=== PATIENT | male | born 1970 | race Caucasian/White ===

== ENCOUNTER 2020-07-01 09:57 | Inpatient (IN) | payer MEDICARE ==
[~2020-07-01] VITALS: Ht 170 cm; Wt 91.5 kg
[~2020-07-01 09:57] MED LIST: ACETAMINOPHEN 500 MG TAB (TYLENOL) PO PRN; ALPRAZolam 0.25 MG (XANAX) TAB PO PRN; ASPI-1238 PO; ATOR80TA76 PO; BISACODYL 10 MG SUPP (DULCOLAX) PR PRN; CALCIUM CARBONATE 500 MG (TUMS) TAB.CHEW PO PRN; CELE100C84 PO; CLOP75TA69 PO; DEXT1TAB3 PO; DOCUSATE SODIUM 100 MG (COLACE) CAP PO PRN; FLEET ENEMA ADULT 1 EA BTL PR PRN; LACTULOSE SYRUP 10GM/15ML (ENULOSE) 30ML UDC PO PRN; LISI40TA PO; LOPERAMIDE 2 MG (IMODIUM) TABLET PO PRN; MELATONIN 3 MG TABLET PO PRN; METF-865 PO; OMEP40CA27 PO; ONDANSETRON 4 MG (ZOFRAN) ORAL DISSOLVE TAB PO PRN; PANT40TA2 PO; diphenhydrAMINE 25 MG TAB (BENADRYL) PO PRN
[2020-07-01 10:55] VITALS: BP 138/94
--- NOTE | 2020-07-01 11:58 | Physical Therapy Evaluation ---
PT Evaluation-General Medical Diagnosis Admission Date Medical Diagnosis: CVA Onset Date: Jun 26, 2020 Therapy Diagnosis Therapy Diagnosis: impaired mobility, strength, endurance Referral Physician: Olesya Asher DO Reason for Referral: Evaluation/Treatment Medical History Pertinent Medical History: CVA, GERD Additional Medical History right BKA Social History Current Living Status: Friend Entry Into Home: Level Entry Prior Prior Level of Function SCALE: Activities may be completed with or without assistive devices. 4-Lzbxyrearf-nmqjook completes the activity by him/herself with no assistance from a helper. 5-Set-up or Clean-up Assistance-helper sets up or cleans up; patient completes activity. [place] assists only prior to or following the activity. 4-Supervision or Touching Assistance-helper provides verbal cues and/or touching/steadying and/or contact guard assistance as patient completes activity. Assistance may be provided throughout the activity or intermittently. 3-Partial/Moderate Assistance-helper does LESS THAN HALF the effort. [place] lifts, holds or supports trunk or limbs, but provides less than half the effort. 2-Substantial/Maximal Assistance-helper does MORE THAN HALF the effort. [place] lifts or holds trunk or limbs and provides more than half the effort. 9-Kkxdvzvlk-hlgtsg does ALL the effort. Patient does none of the effort to complete the activity. Or, the assistance of 2 or more helpers is required for the patient to complete the activity. If activity was not attempted, code reason: 7-Patient Refused. 9-Not Applicable-not attempted and the patient did not perform the activity before the current illness, exacerbation or injury. 10-Not Attempted due to Environmental Limitations-(lack of equipment, weather restraints, etc.). 88-Not Attempted due to Medical Conditions or Safety Concerns. Bed Mobility: 6 Transfers (B,C,W/C): 6 Wheelchair Mobility: 6 Indoor Mobility (Ambulation): Not [place] Stairs: Not [place] Prior Devices Use: Manual wheelchair Patient used a WC for mobility, he was able to perform a transfer independently, states he was not ambulatory. PT Evaluation-Current Subjective Patient in WC pre tx, agrees to PT, has 4/10 pain in right residual limb. Will be co-treating with OT for part of tx due to poor patient mobility, strength, endurance, the need to coordinate UE and LE during activity and ADL's Pt/Family Goals Return Home Objective Patient Orientation: Person, Place, Time, Eyes Open, Situation ROM/Strength ROM Lower Extremities WFL Strength Lower Extremities R Hip flexion 5/5 L Hip flexion 3+/5 R Knee extension 5/5 L Knee extension 4+/5 R Knee flexion 5/5 L Knee flexion 5/5 Sensory Vision: Functional Hearing: Functional Sensation Right Lower Extremit: Intact (light touch sensatin intact throughout residual limb) Sensation Left Lower Extremity: Impaired (Light touch sensation intact L2-S2; diminished sensation "feels asleep" L4-S1) Transfers Roll Left to Right (QC): 4 Sit to Lying (QC): 4 Lying to Sitting/Side of Bed(Q: 4 Sit to Stand (QC): 3 Chair/Oaj-ev-Qjxuj Xfer(QC): 2 (Pt struggles to bear all weight through L LE for pivot transfer; pt unable to clear bottom over chair armrest) Toilet Transfer (QC): 2 Car Transfer (QC): 3 (Used slide board) Gait Does the Patient Walk?: No and Walking Goal NOT indicated Walk 10 feet (QC): 88 Walk 50 ft with 2 Turns(QC): 88 Walk 150 ft (QC): 88 Walking 10ft/uneven surface-QC: 88 Wheelchair Training Does the Pt Use a Wheelchair?: Yes Distance: 150'x2 Wheel 50 ft with 2 turns (QC): 4 Wheel 150 ft (QC): 4 Type of Wheelchair: Manual Pt attempted with propel self with only L LE and was able; pt also able to propel with UE assistance as well. Stairs 1 Step (curb) (QC): 88 4 Steps (QC): 88 12 Steps (QC): 88 Balance Sitting Static: Good Sitting Dynamic: Good Standing Static: Poor Standing Dynamic: Poor Picking up an Object (QC): 88 Treatment LLE ankle pumps x20 Static Standing balance in parallel bars x3 Assessment/Needs Co-treated with OT due to patient's limitations in strength, balance, transfers, and ability to coordinate UE and LE motions. Pt struggles to stand and maintain balance, therefore pt is not fit for ambulating at this time; pt was using wheelchair prior to this hospitalization. Pt needs mod assistance with transfers; pt is attempting transferring as instructed by therapists; pt is used to his own non-traditional ways of transferring from bed to chair. Rehab Potential: Fair PT Short Term Goals Short Term Goals Time Frame: Jul 08, 2020 Roll Left & Right: 6 Sit to lyin Lying to sitting on side of be: 6 Sit to stand: 4 Chair/vow-nk-ehlab transfer: 4 PT Jelly Filter Tender Goals Jelly Filter Tender Goals PT Fdc Goals Time Frame: Jul 22, 2020 Roll Left & Right (QC): 6 Sit to Lying (QC): 6 Lying-Sitting on Side/Bed(QC): 6 Sit to Stand (QC): 5 Chair/Weg-ni-Kgayb Xfer(QC): 5 Toilet Transfer (QC): 5 Car Transfer (QC): 5 Does the Patient Walk: No and Walking Goal NOT indicated Walk 10 feet (QC): 88 Walk 50ft with 2 Turns (QC): 88 Walk 150 ft (QC): 88 Walking 10ft on Uneven Surface: 88 1 Step (curb) (QC): 88 4 Steps (QC): 88 12 Steps (QC): 88 Picking up an Object (QC): 88 Does the Pt use WC or Scooter?: No Wheel 50 feet with 2 turns (QC: 6 Type: N/A Wheel 150 feet: 6 Type: N/A PT Plan Problem List Problem List: Activity Tolerance, Functional Strength, Safety, Balance, Gait, Transfer, Bed Mobility, ROM Treatment/Plan Treatment Plan: Continue Plan of Care Treatment Plan: Bed Mobility, Education, Functional Activity Chadd, Functional Strength, Group Therapy, Gait, Safety, Therapeutic Exercise, Transfers Treatment Duration: Jul 22, 2020 Frequency: At least 5 of 7 days/Wk (IRF) Estimated Hrs Per Day: 1.5 hours per day Patient and/or Family Agrees t: Yes Safety Risks/Education Patient Education: Transfer Techniques, Correct Positioning, W/C Management, Safety Issues Teaching Recipient: Patient Teaching Methods: Demonstration, Discussion Response to Teaching: Reinforcement Needed Discharge Recommendations Plan Patient will perform bed mobility and transfer training, balance and endurance training, functional strengthening, and education, to improve functional mobility and independence at home. Time/GCodes Time In: 1100 Time Out: 1200 Total Billed Treatment Time: 60 Total Billed Treatment 1 visit EVM 10' FA 50' PT performed bed mobility and transfers, standing, WC mobility, assist with balance during dressing, LE exercise, OT worked on dressing, assist with standing and transfers, UE positioning and safety during activity. PT eval from [id number], co-treat from [id number]. AMELIA COSTELLO PT Jul 01, 2020 11:58
--- NOTE | 2020-07-01 14:05 | Occupational Therapy Eval ---
OT Evaluation-General/PLF Medical Diagnosis Admission Date Jul 01, 2020 at 10:40 Medical Diagnosis: CVA Onset Date: Jun 26, 2020 Therapy Diagnosis Therapy Diagnosis: decreased ADL status, decreased functional mobility Referral Physician: Olesya Asher DO Referral Reason: Evaluation/Treatment Medical History Pertinent Medical History: CVA, GERD Current History CVA with L hemiparesis, admitted acutely 06/26/2020, transferred to ARU 07/01/2020 Social History Home: Apartment Current Living Status: Friend Entry Into Home: Ramp ADL-Prior Level of Function SCALE: Activities may be completed with or without assistive devices. 3-Mizxlmmjun-jzjhzeo completes the activity by him/herself with no assistance from a helper. 5-Set-up or Clean-up Assistance-helper sets up or cleans up; patient completes activity. [place] assists only prior to or following the activity. 4-Supervision or Touching Assistance-helper provides verbal cues and/or touching/steadying and/or contact guard assistance as patient completes activity. Assistance may be provided throughout the activity or intermittently. 3-Partial/Moderate Assistance-helper does LESS THAN HALF the effort. [place] lifts, holds or supports trunk or limbs, but provides less than half the effort. 2-Substantial/Maximal Assistance-helper does MORE THAN HALF the effort. [place] lifts or holds trunk or limbs and provides more than half the effort. 6-Oyrxevnhk-trglmt does ALL the effort. Patient does none of the effort to complete the activity. Or, the assistance of 2 or more helpers is required for the patient to complete the activity. If activity was not attempted, code reason: 7-Patient Refused. 9-Not Applicable-not attempted and the patient did not perform the activity before the current illness, exacerbation or injury. 10-Not Attempted due to Environmental Limitations-(lack of equipment, weather restraints, etc.). 88-Not Attempted due to Medical Conditions or Safety Concerns. ADL PLOF Comments Pt reports being independent with all ADLs and functional mobility at [facility] using w/c. He has a tub/shower with a shower chair, during transfer from w/c to ND, pt would use LLE residual rim to transfer from w/c to bath tub ledge, then onto the ND. Pt also uses manual w/c to go to convenient store ~1/4 mile away from his house, then back. Self Care: Independent Functional Cognition: Independent DME/Equipment: Bath Chair, Tub/Shower DME/Equipment Comments w/c OT Current Status Subjective Pt agreeable to OT evaluation and tx. He does not verbalize any pain. Mental Status/Objective Patient Orientation: Person, Place, Time, Situation Current Glasses/Contacts: No Hearing Aids: No Dentures/Partials: No Hand Dominance: Right Upper Extremity ROM WFL BUEs Upper Extremity Coordination decreased RUE thumb opposition to pinky, WFL LUE thumb opposition to each finger. Pt reports having a harder time with releasing objects from L hand and he feels like his left hand "wears out" Upper Extremity Sensation Pt reports tingling/numbness BUE along the ulnar distribution Upper Extremity Strength grossly 3+/5 MMT ADL-Treatment Eating (QC): 5 (Per pt report, he has assistance cutting food then he is able to use utensils to get food to mouth) Oral Hygiene (QC): 7 Shower/Bathe Self (QC): 7 (pt completed task this AM prior to arrival at [facility], agreeable to complete with OT tomorrow.) Upper Body Dressing (QC): 5 (set up at w/c level) Lower Body Dressing (QC): 1 (Pt able to thread BLEs into underwear and pants. X2 assist required in stance and assistance with pant hike.) On/Off Footwear (QC): 5 (set up and increased time with task) Toileting Hygiene (QC): 5 (pt reports being able to use urinal with increased time for managing clothing. Assist for clean up) Other Treatments [id number] OT tx: OT educated pt on purpose and benefits of OT, he verbalized understanding, then provided information about PLOF and home set up. Pt transferred from recliner to w/c, placing w/c directly in front of him and using LLE residual limb in seat of chair to assist him with his balance. Min A with transfer but 2 persons present for safety. Pt then self-propelled w/c down the hallway to increase BUE strength and endurance. Pt able to use UE/LEs in order to maneuver w/c, pt returned to his room. [id number] OT/PT cotreat: OT/PT cotreat due to the skill of 2 clinicians required which a rehab spec could not perform in order to coordinate UE/LE with tasks, and secondary to decreased functional mobility, poor standing balance, to increase safety with transfer, cues for sequencing and safety. PT performed bed mobility and transfers, standing, WC mobility, assist with balance during dressing, LE exercise, OT worked on dressing, assist with standing and transfers, UE positioning and safety during activity. Pt completed dressing, with 2 person assistance required during task for safety and balance. To comp lete dressing, pt placed LLE residual limb into seat of w/c while standing to assist himself with balance, pt had difficulty with pushing through arms and straightening RLE, relying on his LLE in chair and resting his buttocks on arm rest during task. OT assisted pt with pant hike. Pt completed functional transfers between various surfaces, then he completed x3 standing trials at p arallel bars to increase standing balance and UE strength and endurance. Pt required assistance stabilizing LUE with standing and blocking L elbow into extension. Pt self-propelled w/c back to his room requesting to stay up for lunch. Post cotreat, pt seated in w/c, call light in reach and all needs met. Education OT Patient Education: Correct positioning, Energy conservation, Modified ADL techniques, Progress toward Goal/Update tx plan, Purpose of tx/functional activities, Safety issues, Transfer techniques, W/C management Teaching Recipient: Patient Teaching Methods: Discussion Response to Teaching: Verbalize Understanding, Reinforcement Needed OT Short Term Goals Short Term Goals Time Frame: Jul 11, 2020 Shower/bathe self: 3 Lower body dressin OT Western Philosophy Professor Goals Western Philosophy Professor Goals Time Frame: Jul 25, 2020 Eating (QC): 6 Oral Hygiene (QC): 6 Toileting Hygiene (QC): 6 Shower/Bathe Self (QC): 6 Upper Body Dressing (QC): 6 Lower Body Dressing (QC): 6 On/Off Footwear (QC): 6 Additional Goals: 1-Demonstrate ADL Tasks, 2-Verbalize Understanding, 3- ImproveStrength/Chadd 1=Demonstrate adherence to instructed precautions during ADL tasks. 2=Patient will verbalize/demonstrate understanding of assistive devices/modifications for ADL. 3=Patient will improve strength/tolerance for activity to enable patient to perform ADL's. OT Education/Plan Problem List/Assessment Assessment: Decreased Activ Tolerance, Decreased UE Strength, Impaired Bed Mobility, Impaired Funct Balance, Impaired I ADL's, Impaired Self-Care Skills Discharge Recommendations Plan/Recommendations: Continue POC Treatment Plan/Plan of Care Patient would benefit from OT for education, treatment and training to promote independence in ADL's, mobility, safety and/or upper extremity function for ADL's. Plan of Care: ADL Retraining, Functional Mobility, Group Exercise/Act as Ind, UE Funct Exercise/Act, UE Neuromus Re-Ed/Coord, W/C Management Training Treatment Duration: Jul 25, 2020 Frequency: At least 5 of 7 days/Wk (IRF) Estimated Hrs Per Day: 1.5 hours per day Rehab Potential: Fair Time/GCodes Start Time: 10:40 Stop Time: 12:00 Total Time Billed (hr/min): 70 Billed Treatment Time [id number] OT eval/tx [id number] OT/PT cotreat 1, EVM (10'), ADL (10'), FA 3 (50') JUAN C LOW OT Jul 01, 2020 14:05
--- NOTE | 2020-07-01 14:23 | Occupational Ther Daily Note ---
OT Current Status-Daily Note Subjective Pt seated in w/c agreeable to OT tx. Pt states he ate lunch and it was good. Mental Status/Objective Patient Orientation: Person, Place, Time, Situation ADL-Treatment Therapy Code Descriptions/Definitions Functional [place] Measure: 0=Not Assessed/NA 4=Minimal Assistance 1=Total Assistance 5=Supervision or Setup 2=Maximal Assistance 6=Modified [place] 3=Moderate Assistance 7=Complete IndependenceSCALE: Activities may be completed with or without assistive devices. 9-Czqskygbup-nryxkna completes the activity by him/herself with no assistance from a helper. 5-Set-up or Clean-up Assistance-helper sets up or cleans up; patient completes activity. [place] assists only prior to or following the activity. 4-Supervision or Touching Assistance-helper provides verbal cues and/or touching/steadying and/or contact guard assistance as patient completes activity. Assistance may be provided throughout the activity or intermittently. 3-Partial/Moderate Assistance-helper does LESS THAN HALF the effort. [place] lifts, holds or supports trunk or limbs, but provides less than half the effort. 2-Substantial/Maximal Assistance-helper does MORE THAN HALF the effort. [place] lifts or holds trunk or limbs and provides more than half the effort. 2-Nkqblzwhw-nrdmiu does ALL the effort. Patient does none of the effort to complete the activity. Or, the assistance of 2 or more helpers is required for the patient to complete the activity. If activity was not attempted, code reason: 7-Patient Refused. 9-Not Applicable-not attempted and the patient did not perform the activity before the current illness, exacerbation or injury. 10-Not Attempted due to Environmental Limitations-(lack of equipment, weather restraints, etc.). 88-Not Attempted due to Medical Conditions or Safety Concerns. Oral Hygiene (QC): 6 (Pt completed seated in w/c at sink.) Toileting Hygiene (QC): 5 (assist emptying urinal. Pt reports increased time for clothing management and placement of urinal.) Other Treatment Pt seated in w/c, self-propelled w/c into the bathroom where he completed oral care and brushing his hair independently at sink. Pt reports he self-propelled w/c into the restroom to use urinal, he is able to manage clothes and place urinal himself with increased time. Assistance with emptying urinal. Pt requested to stay upright in w/c post tx, pt able to maneuver w/c using UEs/RLE around room to position self. Post OT tx, pt seated in w/c, call light in reach and all needs met. Education OT Patient Education: Correct positioning, Energy conservation, Modified ADL techniques, Progress toward Goal/Update tx plan, Purpose of tx/functional activities, Safety issues, Transfer techniques, W/C management Teaching Recipient: Patient Teaching Methods: Discussion Response to Teaching: Verbalize Understanding OT Short Term Goals Short Term Goals Time Frame: Jul 11, 2020 Shower/bathe self: 3 Lower body dressin OT Prison Goals Rural Service Engineer Goals Time Frame: Jul 25, 2020 Eating (QC): 6 Oral Hygiene (QC): 6 Toileting Hygiene (QC): 6 Shower/Bathe Self (QC): 6 Upper Body Dressing (QC): 6 Lower Body Dressing (QC): 6 On/Off Footwear (QC): 6 Additional Goals: 1-Demonstrate ADL Tasks, 2-Verbalize Understanding, 3- ImproveStrength/Chadd 1=Demonstrate adherence to instructed precautions during ADL tasks. 2=Patient will verbalize/demonstrate understanding of assistive devices/modifications for ADL. 3=Patient will improve strength/tolerance for activity to enable patient to perform ADL's. OT Education/Plan Problem List/Assessment Assessment: Decreased Activ Tolerance, Decreased UE Strength, Impaired Funct Balance, Impaired I ADL's, Impaired Self-Care Skills Discharge Recommendations Plan/Recommendations: Continue POC Treatment Plan/Plan of Care Patient would benefit from OT for education, treatment and training to promote independence in ADL's, mobility, safety and/or upper extremity function for ADL's. Plan of Care: ADL Retraining, Functional Mobility, Group Exercise/Act as Ind, UE Funct Exercise/Act, UE Neuromus Re-Ed/Coord, W/C Management Training Treatment Duration: Jul 25, 2020 Frequency: At least 5 of 7 days/Wk (IRF) Estimated Hrs Per Day: 1.5 hours per day Rehab Potential: Fair Time/GCodes Start Time: 13:00 Stop Time: 13:20 Total Time Billed (hr/min): 20 Billed Treatment Time 1, ADL JUAN C LOW OT Jul 01, 2020 14:23
--- NOTE | 2020-07-01 15:18 | Physical Therapy Daily Note ---
PT Daily Note-Current Subjective Pt presents sitting upright in in room. Pt agrees to PT. Pt reports no pain. Appearance After PT tx patient is assisted returning to room. In his room he is left upr ight in wheelchair with access to tray, call button, and all needs met. Mental Status Patient Orientation: Person, Place, Time, Eyes Open, Situation Transfers SCALE: Activities may be completed with or without assistive devices. 4-Gnvdbmkxnn-yjprbti completes the activity by him/herself with no assistance from a helper. 5-Set-up or Clean-up Assistance-helper sets up or cleans up; patient completes activity. [place] assists only prior to or following the activity. 4-Supervision or Touching Assistance-helper provides verbal cues and/or touching/steadying and/or contact guard assistance as patient completes activity. Assistance may be provided throughout the activity or intermittently. 3-Partial/Moderate Assistance-helper does LESS THAN HALF the effort. [place] lifts, holds or supports trunk or limbs, but provides less than half the effort. 2-Substantial/Maximal Assistance-helper does MORE THAN HALF the effort. [place] lifts or holds trunk or limbs and provides more than half the effort. 0-Jeryjxatk-jjofzg does ALL the effort. Patient does none of the effort to complete the activity. Or, the assistance of 2 or more helpers is required for the patient to complete the activity. If activity was not attempted, code reason: 7-Patient Refused. 9-Not Applicable-not attempted and the patient did not perform the activity before the current illness, exacerbation or injury. 10-Not Attempted due to Environmental Limitations-(lack of equipment, weather restraints, etc.). 88-Not Attempted due to Medical Conditions or Safety Concerns. Chair/Yak-pc-Nuezs Xfer(QC): 2 Wheelchair Training Does the Pt Use a Wheelchair?: Yes Wheel 50 ft with 2 turns (QC): 4 Wheel 150 ft (QC): 4 Type of Wheelchair: Manual 200'x2 Exercises NuStep Minutes: 15 NuStep Workload: 4 Treatments LE strengthening Assessment Current Status: Fair Progress Pt requires max assist to complete stand-pivot transfer onto nustep. Transferring from Nustep to pt is in the midst of hearing instruction to transfer when he begins to transfers in his own manner involving leaning forward into wheelchair with residual limb and then twisting his body onto bottom. PT Short Term Goals Short Term Goals Time Frame: Jul 08, 2020 Roll Left & Right: 6 Sit to lyin Lying to sitting on side of be: 6 Sit to stand: 4 Chair/hyx-ij-oczpk transfer: 4 PT Recreation Professor Goals Jail Goals PT Recreation Professor Goals Time Frame: Jul 22, 2020 Roll Left & Right (QC): 6 Sit to Lying (QC): 6 Lying-Sitting on Side/Bed(QC): 6 Sit to Stand (QC): 5 Chair/Xme-db-Hexsv Xfer(QC): 5 Toilet Transfer (QC): 5 Car Transfer (QC): 5 Does the Patient Walk: No and Walking Goal NOT indicated Walk 10 feet (QC): 88 Walk 50ft with 2 Turns (QC): 88 Walk 150 ft (QC): 88 Walking 10ft on Uneven Surface: 88 1 Step (curb) (QC): 88 4 Steps (QC): 88 12 Steps (QC): 88 Picking up an Object (QC): 88 Does the Pt use WC or Scooter?: No Wheel 50 feet with 2 turns (QC: 6 Type: N/A Wheel 150 feet: 6 Type: N/A PT Plan Problem List Problem List: Activity Tolerance, Functional Strength, Safety, Balance, Gait, Transfer, Bed Mobility, ROM Treatment/Plan Treatment Plan: Continue Plan of Care Treatment Plan: Bed Mobility, Education, Functional Activity Chadd, Functional Strength, Group Therapy, Gait, Safety, Therapeutic Exercise, Transfers Treatment Duration: Jul 22, 2020 Frequency: At least 5 of 7 days/Wk (IRF) Estimated Hrs Per Day: 1.5 hours per day Patient and/or Family Agrees t: Yes Safety Risks/Education Patient Education: Transfer Techniques, Correct Positioning, W/C Management, Safety Issues Teaching Recipient: Patient Teaching Methods: Demonstration, Discussion Response to Teaching: Reinforcement Needed Time/GCodes Time In: 1330 Time Out: 1400 Total Billed Treatment Time: 30 Total Billed Treatment 1 visit EX 15' FA 15' AMELIA COSTELLO PT Jul 01, 2020 15:18
[2020-07-01] MEDS: ENOXAPARIN 40 MG/0.4 ML (LOVENOX) SYR SC SCH (17:19)
[2020-07-01] MEDS: DOCUSATE SODIUM 100 MG (COLACE) CAP PO SCH ×2 (17:37→20:43)
[2020-07-01] MEDS: polyethylene glycoL POWDER 17 GM (MIRALAX) PACK PO SCH ×2 (17:38→20:46)
[2020-07-01] MEDS: SENNA W/DOCUSATE (SENOKOT S) TABLET PO SCH ×2 (17:38→20:42)
[2020-07-01] MEDS ORDERED: BENZONATATE 100 MG (TESSALON) CAPSULE PO PRN (18:45)
[2020-07-01] MEDS ORDERED: RT-ALBUTEROL SULF 2.5 MG/3 ML PRE-MIX VIAL INH PRN (18:45)
[2020-07-01] MEDS ORDERED: ENOXAPARIN 40 MG/0.4 ML (LOVENOX) SYR SC SCH (18:45)
[2020-07-01] MEDS ORDERED: CHLOR MAL PO PRN (18:45)
[2020-07-01] MEDS ORDERED: ANTACID SUSP 30 ML UDC (MYLANTA) PO PRN (18:45)
[2020-07-01] MEDS ORDERED: [UNRECOGNIZED DRUG - OTHER] PO PRN (18:45)
[2020-07-01] MEDS ORDERED: MILK OF MAGNESIA 400 MG/5 ML 30 ML UDC PO PRN (18:45)
[2020-07-01] MEDS ORDERED: MELATONIN 3 MG TABLET PO PRN (18:45)
[2020-07-01] MEDS ORDERED: DEXTROMETHORPHAN HBR PO PRN (18:45)
[2020-07-01] MEDS ORDERED: ACETAMINOPHEN 325 MG TABLET PO PRN (18:45)
[2020-07-01] MEDS ORDERED: ONDANSETRON 4 MG/2 ML (SDV) Z0FRAN IV PRN (18:45)
--- NOTE | 2020-07-01 19:40 | Progress Note ---
HAILY ROD MED STUDENT 07/01/20 1940: Progress Note Neurological Exam Mental Status: * Alert/ Aware * A&Ox3 * Difficulty with speech articulation * Mood/ affect congruent Cranial Nerves: * CN's II-XII grossly intact * Difficulty with eye convergence Motor: * UE strength +5/5 bilaterally * Left LE strength +5/5 * Smooth, fluid movements * No spontaneous movements * Difficulty with fine motor movements bilaterally * Left side new onset * Decreased reaction time when releasing executive services administrator bilaterally * Left side new onset * Decreased speed of alternating movements Reflexes: * Right Brachioradialis +2/4 * Left Brachioradialis +1/4 * Left Patellar +2/4 Sensation: * UE/ LE sensation intact * Left LE numbness/ tingling noted Coordination: * Gait unable to assess * Difficulty with cpmnkl-lv-ulmr test * Noticeable shaking when approaching examiner's finger tip * Patient would miss examiner's finger tip and touch finger 3/5 attempts OLESYA MARIN DO 07/01/202116: Supervisory-Addendum Brief Verification & Attestation Participated in pt care: history, MDM, physical Personally performed: exam, history, MDM, supervision of care Care discussed with: Medical Student Procedures: n/a Results interpretation: Verified all documentation Verification and Attestation of Medical Student E/M Service A medical student performed and documented this service in my presence. I reviewed and verified all information documented by the medical student and made modifications to such information, when appropriate. I personally performed the physical exam and medical decision making. Olesya Marin, Jul 01, 2020,21:17 HAILY ROD MED STUDENT Jul 01, 2020 19:40 OLESYA MARIN DO Jul 01, 2020 21:17
--- NOTE | 2020-07-01 19:55 | History & Physical ---
HAILY ROD MED STUDENT 07/01/201954: History of Present Illness History of Present Illness Reason for visit/HPI CC: Left sided weakness secondary to CVA HPI: 50 yo M presents with CC of left sided weakness following CVA. Patient states he had no symptoms that evening and when he got up at 1 am to urinate. The following morning he had profound left sided muscle weakness. Patient confirmed inability to urinate at the time but denied any other symptoms including pain and dysphagia. Patient was not as concerned considering the severity did not seem as significant to him as his previous stroke in 2014. Patient continued with his morning including making a pot of coffee. Later that morning the girlfriend of his roommate called EMS due to concern. Date of Admission Jul 01, 2020 at 10:40 I consulted on this patient on 07/01/20 19:50 Attending Physician Olesya Asher DO Admitting Physician Anitha Lee DO Consult Allergies and Home Medications Allergies Coded Allergies: No Known Drug Allergies (Unverified , 06/26/20) Home Medications Aspirin 81 Mg Tablet., 81 MG PO DAILY, (Reported) Atorvastatin Calcium 80 Mg Tablet, 80 MG PO HS, (Reported) Celecoxib 100 Mg Capsule, 100 MG PO BID WITH MEALS, (Reported) Clopidogrel Bisulfate 75 Mg Tablet, 75 MG PO DAILY, (Reported) LAST FILLED 02-26-2020 #90/90 DAY SUPPLY Dextromethorphan HBr/Chlor-Mal 1 Each Tablet, 1 EACH PO Q4H PRN for COUGH, (Rep orted) Lisinopril 40 Mg Tablet, 40 MG PO DAILY, (Reported) LAST FILLED 04-18-2020 #30/30 DAY SUPPLY Metformin HCl 500 Mg Tab.er.24h, 500 MG PO BID, (Reported) Omeprazole 40 Mg Capsule.dr, 40 MG PO DAILY, (Reported) Pantoprazole Sodium 40 Mg Tablet.dr, 40 MG PO DAILY, (Reported) LAST FILLED 04-18-2020 #30/30 DAY SUPPLY Past Vvodxpl-Ihudxd-Jicctc Hx Patient Social History Living Status: With friend and friend's girlfriend Employed/Student: unemployed (Disability) Alcohol Use: Past History (Quit May 02, 2020) Alcohol Beverage of Choice: Beer (3-6 25 oz per day) Recreational Drug Use: No Smoking Status: Former Smoker Cigaretts per day: 40 Former Smoker, Quit: Apr 24, 2020 Type Used: Cigarettes Recent Hopitalizations: Yes Immunizations Up To Date Pediatric: No Seasonal Allergies Seasonal Allergies: No Surgeries Yes Amputation (Right BKA), Arteriovenous Shunt (Right leg) Respiratory No Currently Using CPAP: No Currently Using BIPAP: No Cardiovascular Yes High Cholesterol, Hypertension, Peripheral Vascular Neurological Yes Stroke Reproductive System Sexually Transmitted Disease: No HIV/AIDS: No Genitourinary No Gastrointestinal Yes Gastroesophageal Reflux Musculoskeletal Amputee (Right BKA), Arthritis Endocrine History of Endocrine Disorders: Yes Endocrine Disorders: Diabetes, Non-Insulin dep HEENT History of HEENT Disorders: No Loss of Vision: Denies Hearing Impairment: Denies Cancer No Psychosocial History of Psychiatric Problem: No Integumentary History of Skin or Integumenta: No Blood Transfusions History of Blood Disorders: No Adverse Reaction to a Blood Tr: No Family Medical History Significant Family History: Heart Disease (Father), Cancer (Mother ("bone cancer")), Diabetes (Paternal side), Stroke (Father) Other Significan Family Hx: Sister passed of breast cancer at age 48 Brother hx of [place] Family Hx: Diabetes mellitus 19 FATHER Review of Systems Constitutional: no symptoms reported EENTM: no symptoms reported Respiratory: dyspnea on exertion Cardiovascular: no symptoms reported Gastrointestinal: abdominal pain, constipation Genitourinary: no symptoms reported Musculoskeletal: joint pain (Left shoulder), muscle weakness (Left side) Skin: no symptoms reported Psychiatric/Neurological: No Symptoms Reported All Other Systems Reviewed Negative Unless Noted: Yes Physical Exam Vital Signs Vital Signs - First Documented 07/01/20 10:55 Temp 36.5 Pulse 83 Resp 18 B/P (MAP) 138/94 (109) Pulse Ox 96 O2 Delivery Room Air Capillary Refill : Height, Weight, BMI Height: '" Weight: lbs. oz. kg; 33.25 BMI Method: General Appearance: No Apparent Distress, WD/WN Eyes: Bilateral Eye Normal Inspection, Bilateral Eye PERRL, Bilateral Eye EOMI HEENT: PERRL/EOMI, Pharynx Normal Neck: Full Range of Motion, Normal Inspection, Supple Respiratory: Chest Non Tender, Lungs Clear, Normal Breath Sounds, No Accessory Muscle Use, Other (Slight SOB from exertion ) Cardiovascular: Regular Rate, Rhythm, No Edema, No Gallop, No JVD, No Murmur Gastrointestinal: No Organomegaly, No Pulsatile Mass, Non Tender, Abnormal Bowel Sounds (Hyperactive), Distended Back: Normal Inspection, No CVA Tenderness, No Vertebral Tenderness Extremity: Normal Inspection, Normal Range of Motion, Non Tender, No Calf Tenderness, No Pedal Edema Neurologic/Psychiatric: Alert, Oriented x3, No Motor/Sensory Deficits, Normal Mood/Affect, exercise scientist II-XII Norm as Tested Reflexes: 2+ Bicep (R) (Brachioradialis); 1+ Bicep (L) (Brachioradialis ); 2+ Knee (L) Skin: Normal Color, Warm/Dry Assessment/Plan Assessment and Plan ASSESSMENT: CVA Muscle weakness Right BKA Right internal carotid artery stenosis HTN Hyperlipidemia T2DM Hx of smoking Hx of excessive alcohol use PLAN: Physical therapy Speech therapy Maintain blood sugar Monitor BP OLESYA ASHER DO 07/02/20 0523: History of Present Illness History of Present Illness Time Seen by a Provider: 11:00 Allergies and Home Medications Allergies Coded Allergies: No Known Drug Allergies (Unverified , 06/26/20) Home Medications Aspirin 81 Mg Tablet.dr, 81 MG PO DAILY, (Reported) Atorvastatin Calcium 80 Mg Tablet, 80 MG PO HS, (Reported) Celecoxib 100 Mg Capsule, 100 MG PO BID WITH MEALS, (Reported) Clopidogrel Bisulfate 75 Mg Tablet, 75 MG PO DAILY, (Reported) LAST FILLED 02-26-2020 #90/90 DAY SUPPLY Dextromethorphan HBr/Chlor-Mal 1 Each Tablet, 1 EACH PO Q4H PRN for COUGH, (Reported) Lisinopril 40 Mg Tablet, 40 MG PO DAILY, (Reported) LAST FILLED 04-18-2020 #30/30 DAY SUPPLY Metformin HCl 500 Mg Tab.er.24h, 500 MG PO BID, (Reported) Omeprazole 40 Mg Capsule.dr, 40 MG PO DAILY, (Reported) Pantoprazole Sodium 40 Mg Tablet.dr, 40 MG PO DAILY, (Reported) LAST FILLED 04-18-2020 #30/30 DAY SUPPLY Patient Home Medication List Home Medication List Reviewed: Yes Past Bbhpkmr-Kwtvus-Xxofwf Hx Patient Social History Marrital Status: cohabiting Family Medical History Family Hx: Diabetes mellitus 19 FATHER Review of Systems Constitutional: see HPI Physical Exam General Appearance: No Apparent Distress, WD/WN Assessment/Plan Assessment and Plan Problems: (1) CVA (cerebral vascular accident) Admission Diagnosis Admission Status: Inpatient Order (span 2 midnights) Reason for Inpatient Admission: inpt Supervisory-Addendum Brief Verification & Attestation Participated in pt care: history, MDM, physical Personally performed: exam, history, MDM, supervision of care Care discussed with: Medical Student Procedures: n/a Results interpretation: Verified all documentation Verification and Attestation of Medical Student E/M Service A medical student performed and documented this service in my presence. I reviewed and verified all information documented by the medical student and made modifications to such information, when appropriate. I personally performed the physical exam and medical decision making. Olesya Asher, Jul 02, 2020,05:23 HAILY ROD MED STUDENT Jul 01, 2020 19:55 OLESYA ASHER DO Jul 02, 2020 05:23
[2020-07-01] MEDS: HYDROcodone/APAP 5 MG/325 MG (LORTAB) TAB PO PRN (20:43)
[2020-07-01] MEDS: inSUlin ASPART (NovoLOG) 1 UNIT/0.01 ML (CHARGE PER UNIT) SC SCH (20:46)
--- NOTE | 2020-07-01 21:16 | PM&R Post Admission Assessment ---
PM&R Date of Visit: Jul 01, 2020 Time of Visit: 10:40 History of Present Illness CC: Stroke HPI: This is a 50yoWM who presents to inpatient rehab after a new ischemic stroke. He has a history of prior stroke in addition to a right lower extremity amputation so he has residual left weakness with right lower extremity amputation in need of intensive intensive rehab. He lives with his girlfriend who has to have back surgery and pretty debilitated herself. His pain is much better now and his bowels are a bit constipated. He remains with a dinh catheter and telemetry on. Catheter has been removed and Tely DC. Patient reports BM a bit today so constipation is resolving. PLOF was driving a bit and navigating around his house with wheelchair and transfers. Past Yrxajrj-Dkstjv-Depijq Hx Past Med/Social Hx: Reviewed Nursing Past Med/Soc Hx, Reviewed and Corrections made Patient Social History Marrital Status: cohabiting Living Status: With friend and friend's girlfriend Employed/Student: unemployed (Disability) Alcohol Use: Past History Alcohol Beverage of Choice: Beer Recreational Drug Use: No Smoking Status: Former Smoker Cigaretts per day: 40 Former Smoker, Quit: Apr 24, 2020 Type Used: Cigarettes Physical Abuse Screen: No Sexual Abuse: No Recent Foreign Travel: No Recent Hopitalizations: Yes Immunizations Up To Date Pediatric: No Seasonal Allergies Seasonal Allergies: No Past Medical History Surgeries: Amputation (Right BKA), Arteriovenous Shunt (Right leg), Orthopedic Respiratory: COPD Currently Using CPAP: No Currently Using BIPAP: No Cardiac: High Cholesterol, Hypertension, Peripheral Vascular Neurological: Stroke Sexually Transmitted Disease: No HIV/AIDS: No Gastrointestinal: Gastroesophageal Reflux Musculoskeletal: Amputee, Arthritis Endocrine: Diabetes, Non-Insulin dep Loss of Vision: Denies Hearing Impairment: Denies History of Blood Disorders: No Adverse Reaction to Blood Bedolla: No Family History Diabetes mellitus 19 FATHER FHx: cancer Heart Disease (Father), Cancer (Mother ("bone cancer")), Diabetes (Paternal side), Stroke (Father) Sister passed of breast cancer at age 48 Brother hx of [place] Prior Level of Function Bed Mobility: 6 Transfers: 6 Wheelchair Mobility: 6 Indoor Mobility (Ambulation): Not Applicalbe Stairs: Not Applicalbe Prior Devices Use: Manual wheelchair Self Care: Independent Functional Cognition: Independent Current Level of Fuctioning Roll Left to Right: 4 Sit to Lyin Lying to Sitting/Side of Bed: 4 Sit to Stand: 3 Chair/Hua-kd-Rjbmj Xfer: 2 Car Transfer: 3 (Used slide board) Does the Patient Walk: No and Walking Goal NOT indicated Walk 10 feet: 88 Walk 50 ft with 2 Turns: 88 Walk 150 ft: 88 Walking 10ft on uneven surface: 88 Does the Pt Use a Wheelchair: Yes Wheelchair Distance: 150'x2 Wheel 50 ft with 2 turns: 4 Wheel 150 ft: 4 Type of Wheelchair: Manual 1 Step (curb): 88 4 Steps: 88 12 Steps: 88 Picking up an Object: 88 Eatin (Per pt report, he has assistance cutting food then he is able to use utensils to get food to mouth) Oral Hygiene: 6 (Pt completed seated in w/c at sink.) Shower/Bathe Self: 7 (pt completed task this AM prior to arrival at [facility], agreeable to complete with OT tomorrow.) Upper Body Dressin (set up at w/c level) Lower Body Dressin (Pt able to thread BLEs into underwear and pants. X2 assist required in stance and assistance with pant hike.) On/Off Footwear: 5 (set up and increased time with task) Toileting Hygiene: 5 (assist emptying urinal. Pt reports increased time for clothing management and placement of urinal.) PM&R Allergy/Meds/Data Review Allergies Coded Allergies: No Known Drug Allergies (Unverified , 06/26/20) Home Medications Scheduled Aspirin (Aspirin EC), 81 MG PO DAILY, (Reported) Atorvastatin Calcium (Atorvastatin Calcium), 80 MG PO HS, (Reported) Celecoxib (Celecoxib), 100 MG PO BID WITH MEALS, (Reported) Clopidogrel Bisulfate (Plavix), 75 MG PO DAILY, (Reported) Lisinopril (Lisinopril), 40 MG PO DAILY, (Reported) Metformin HCl (Metformin HCl ER), 500 MG PO BID, (Reported) Omeprazole (Omeprazole), 40 MG PO DAILY, (Reported) Pantoprazole Sodium (Protonix), 40 MG PO DAILY, (Reported) Scheduled PRN Dextromethorphan HBr/Chlor-Mal (Coricidin Hbp Cough & Cold Tab), 1 EACH PO Q4H PRN for COUGH, (Reported) Current Medications Current Medications Reviewed Laboratory Data Laboratory Tests 07/01/20 20:39: Glucometer 133H Review of Systems Constitutional: see HPI, malaise, weakness Gastrointestinal: constipation Musculoskeletal: back pain, joint pain, muscle pain, muscle stiffness, muscle cramps Psychiatric/Neurological: Numbness, Weakness Physical Exam Physical Exam Vital Signs Vital Signs - First Documented 07/01/20 10:55 Temp 36.5 Pulse 83 Resp 18 B/P (MAP) 138/94 (109) Pulse Ox 96 O2 Delivery Room Air Capillary Refill : Height, Weight, BMI Height: '" Weight: lbs. oz. kg; 33.25 BMI Method: General Appearance: No Apparent Distress, WD/WN, Chronically ill, Obese Eyes: Bilateral Eye Normal Inspection, Bilateral Eye PERRL, Bilateral Eye EOMI HEENT: PERRL/EOMI, Normal ENT Inspection, Pharynx Normal Neck: Full Range of Motion, Normal Inspection, Non Tender, Supple Respiratory: Chest Non Tender, Lungs Clear, Normal Breath Sounds, No Accessory Muscle Use, No Respiratory Distress, Other (Slight SOB from exertion ) Cardiovascular: Regular Rate, Rhythm, No Edema, No Gallop, No JVD, No Murmur Gastrointestinal: No Organomegaly, No Pulsatile Mass, Non Tender, Soft Back: Normal Inspection, No CVA Tenderness, No Vertebral Tenderness Extremity: Normal Inspection, Normal Range of Motion, Non Tender, No Calf Tenderness, No Pedal Edema, Other (right BKA) Neurologic/Psychiatric: Alert, Oriented x3, No Motor/Sensory Deficits, Normal Mood/Affect, international marketing executive II-XII Norm as Tested, Motor Weakness (left sided weakness 3/5) Reflexes: 2+ Bicep (R) (Brachioradialis); 1+ Bicep (L) (Brachioradialis ); 2+ Knee (L) Skin: Normal Color, Warm/Dry PM&R Medical Assessment & Plan REHAB/MEDICAL ASSESSMENT AND PLAN: REHAB IMPAIRMENT GROUP: CVA ETIOLOGIC DIAGNOSIS: CVA The comorbidities that impact the patients function and/or functional outcome by: previous right BKA, previous CVA with weakness, chronic debility, continued smoking REHAB PLAN: The patient is being admitted to our comprehensive inpatient rehabilitation facility and can tolerate the intensity of service consisting of at least: 180 minutes of therapy a day, 5 out of 7 days a week Rehab treatment will consist of: PT OT will focus on regaining independence with the use of assistive devices in order to return home to live independently. The patient/family has a good understanding of our discharge process and will benefit from an interdisciplinary inpatient rehabilitation program. The patient has potential to make improvement and is in need of at least two of the following multidisciplinary therapies including but not limited to physical, occupational, speech, and prosthetics and orthotics. Additionally the patient will need services from respiratory, nutritional services, wound care, psychology, etc. (Customize this to each patient). Given the patients complex condition and risk of further medical complications, rehabilitation services cannot be safely or effectively provided at a lower level of care such as a fdc facility. BARRIERS TO DISCHARGE: Severe acute on chronic disability ESTIMATED LOS: 7 days DISPOSITION: Home RELEVANT CHANGES SINCE PREADMISSION SCREENING: I have compared the patients medical and functional status at the time of the preadmission screening and there are: no changes PROGNOSIS: Fair REHABILITATION GOALS: 1. PT OT will focus on regaining independence with the use of assistive devices in order to return home to live independently. All the above goals were reviewed with the patient and he/she is in agreement. By signing this document, I acknowledge that I have personally performed a full physical examination on this patient within 24 hours of admission to this inpatient rehabilitation facility and have determined the patient to be able to tolerate the above course of treatment at an intensive level for a reasonable period of time. I will be completing a detailed individualized Plan of Care for this patient by day #4 of the patients stay based upon the Preadmission Screen, the Post-Admission Evaluation, and the therapy evaluations. Admission Dx/Comorbidities: (1) CVA (cerebral vascular accident) ICD Codes: I63.9 - Cerebral infarction, unspecified (2) Carotid stenosis Status: Chronic ICD Codes: I65.29 - Occlusion and stenosis of unspecified carotid artery (3) History of CVA with residual deficit Status: Chronic ICD Codes: I69.30 - Unspecified sequelae of cerebral infarction (4) Amputee of extremity Status: Chronic ICD Codes: Z89.9 - Acquired absence of limb, unspecified (5) PAD (peripheral artery disease) Status: Chronic ICD Codes: I73.9 - Peripheral vascular disease, unspecified (6) Non-insulin dependent type 2 diabetes mellitus Status: Chronic ICD Codes: E11.9 - Type 2 diabetes mellitus without complications (7) CKD (chronic kidney disease) Status: Chronic ICD Codes: N18.9 - Chronic kidney disease, unspecified (8) HLD (hyperlipidemia) Status: Chronic ICD Codes: E78.5 - Hyperlipidemia, unspecified (9) Essential (primary) hypertension Status: Chronic ICD Codes: I10 - Essential (primary) hypertension (10) Left-sided weakness ICD Codes: R53.1 - Weakness (11) Smoker within last 12 months Status: Acute ICD Codes: Z87.891 - Personal history of nicotine dependence Assessment/Plan Assessment and Plan Assess & Plan/Chief Complaint Assessment: CVA w/left sided weakness Smoker Right BKA hx Chronic disability HTN HLP CRI Plan: IRF protocol Monitor BP Monitor creatinine TREY MARIN DO Jul 01, 2020 21:16
[2020-07-02] MEDS: HYDROcodone/APAP 5 MG/325 MG (LORTAB) TAB PO PRN ×4 (00:22→20:11)
[2020-07-02] MEDS: inSUlin ASPART (NovoLOG) 1 UNIT/0.01 ML (CHARGE PER UNIT) SC SCH ×4 (05:46→20:15)
[2020-07-02 06:03] LABS: BASOPHILS % (AUTO) 0 % (0-10); EOSINOPHILS # (AUTO) 0.1 10^3/uL (0.0-0.3); EOSINOPHILS % (AUTO) 2 % (0-10); HEMATOCRIT 37 % (40-54); HEMOGLOBIN 12.9 G/DL (13.3-17.7); LYMPHOCYTES # (AUTO) 2.6 X 10^3 (1.0-4.0); LYMPHOCYTES % (AUTO) 40 % (12-44); MEAN CORPUSCULAR HEMOGLOBIN 32 PG (25-34); MEAN CORPUSCULAR HGB CONC 35 G/DL (32-36); MEAN CORPUSCULAR VOLUME 91 FL (80-99); MEAN PLATELET VOLUME 10.1 FL (7.4-10.4); MONOCYTES # (AUTO) 0.8 X 10^3 (0.0-1.0); MONOCYTES % (AUTO) 13 % (0-12); NEUTROPHILS # (AUTO) 2.9 X 10^3 (1.8-7.8); NEUTROPHILS % (AUTO) 45 % (42-75); PLATELET COUNT 290 10^3/uL (130-400); WHITE BLOOD COUNT 6.4 10^3/uL (4.3-11.0)
[2020-07-02 06:11] LABS: ALBUMIN 3.9 GM/DL (3.2-4.5); CHLORIDE 107 MMOL/L (98-107); POTASSIUM 4.2 MMOL/L (3.6-5.0); SODIUM 138 MMOL/L (135-145)
[2020-07-02 06:12] LABS: CALCIUM 8.9 MG/DL (8.5-10.1)
[2020-07-02 06:13] LABS: GLUCOSE 108 MG/DL (70-105); TOTAL PROTEIN 6.8 GM/DL (6.4-8.2)
[2020-07-02 06:14] LABS: CARBON DIOXIDE 20 MMOL/L (21-32)
[2020-07-02 06:15] LABS: BILIRUBIN,TOTAL 0.5 MG/DL (0.1-1.0)
[2020-07-02 06:17] LABS: ALKALINE PHOSPHATASE 69 U/L (40-136); CREATININE SERUM 0.73 MG/DL (0.60-1.30); GFR ESTIMATED > 60
[2020-07-02 06:18] LABS: BUN/CREATININE RATIO 18
[2020-07-02 06:19] VITALS: BP 118/64
[2020-07-02 06:20] LABS: ALANINE AMINOTRANSFERASE 45 U/L (0-55)
--- NOTE | 2020-07-02 08:43 | Cardiology Progress Note ---
Objective-Cardiology Exam Last Set of Vital Signs Vital Signs 07/07/20 07/07/20 06:43 10:00 Temp 35.6 Pulse 72 Resp 14 B/P (MAP) 103/64 (77) Pulse Ox 94 O2 Delivery Room Air Capillary Refill : Less Than 3 Seconds I&O Intake and Output 07/07/20 00:00 Intake Total 1740 ml Output Total 3625 ml Balance -1885 ml Intake Oral 1740 ml Output Urine Total 3625 ml # Bowel Movements 1 Results Lab A/P-Cardiology Admission Diagnosis CVA HTN HLP DM Assessment/Plan Status post Acute CVA, had a similar episode in May 2015 with unknown source, was on aspirin and Plavix. Patient had questionable patent foramen ovale with yiwk-[id number] shunt in 2014. Repeat echo showed mildly enlarged left atrium with mild pulmonary hypertension. Continue on aspirin. Severe right carotid stenosis, will need vascular evaluation in the future Status post loop implant, continue to monitor Hypertension, monitor response and tolerance to current medication. Hyperlipidemia, well controlled, on Lipitor 40 mg daily. Continue to monitor Tobaccoism, patient has stopped smoking in 2016, encouraged to continue with smoking cessation Right BKA, patient reported that he had a blood clot and sudden cold foot, possible embolization. It could be related to the patent foramen ovale or occult arrhythmia Diabetes mellitus, followed and managed by primary care physician Obesity, questionable underlying sleep apnea Clinical Quality Measures DVT/VTE Risk/Contraindication: Risk Factor Score Per Nursin RFS Level Per Nursing on Admit: 4+=Very High MIKEL GILLIS Jul 02, 2020 08:43
--- NOTE | 2020-07-02 09:16 | Occupational Ther Daily Note ---
OT Current Status-Daily Note Subjective Pt seated in w/c brushing his teeth at the sink. Pt agreeable to OT Tx with focus on ADLs. ADL-Treatment Therapy Code Descriptions/Definitions Functional [place] Measure: 0=Not Assessed/NA 4=Minimal Assistance 1=Total Assistance 5=Supervision or Setup 2=Maximal Assistance 6=Modified [place] 3=Moderate Assistance 7=Complete IndependenceSCALE: Activities may be completed with or without assistive devices. 3-Cjkynqzlra-nvftqyd completes the activity by him/herself with no assistance from a helper. 5-Set-up or Clean-up Assistance-helper sets up or cleans up; patient completes activity. [place] assists only prior to or following the activity. 4-Supervision or Touching Assistance-helper provides verbal cues and/or touching/steadying and/or contact guard assistance as patient completes activity. Assistance may be provided throughout the activity or intermittently. 3-Partial/Moderate Assistance-helper does LESS THAN HALF the effort. [place] lifts, holds or supports trunk or limbs, but provides less than half the effort. 2-Substantial/Maximal Assistance-helper does MORE THAN HALF the effort. [place] lifts or holds trunk or limbs and provides more than half the effort. 0-Mjtgupqjr-dweadh does ALL the effort. Patient does none of the effort to complete the activity. Or, the assistance of 2 or more helpers is required for the patient to complete the activity. If activity was not attempted, code reason: 7-Patient Refused. 9-Not Applicable-not attempted and the patient did not perform the activity before the current illness, exacerbation or injury. 10-Not Attempted due to Environmental Limitations-(lack of equipment, weather restraints, etc.). 88-Not Attempted due to Medical Conditions or Safety Concerns. Oral Hygiene (QC): 6 (independent at sink) Shower/Bathe Self (QC): 3 (Assistance washing LLE and back. Pt able to wash all other parts in sitting.) Upper Body Dressing (QC): 5 (set up) On/Off Footwear: 3 (Pt able to doff sock, assistance donning) Toileting Hygiene (QC): 3 (Pt able to manage pants down and perform hygiene, assistance managing pants up.) Toilet Transfer (QC): 3 (Min A stand pivot transfer using GBs, pt used LLE residual limb in w/c during transfer.) Other Treatment Pt seated in w/c at sink brushing his teeth, agreeable to OT tx. Pt transferred from w/c to KS via SPT with GBs, during transfer, pt placed LLE residual limb into w/c to assist with stabilizing self, min A with guiding pt's hips towards KS. OT set up shower area for pt, pt completed shower requiring assistance washing/drying back and RLE lower leg/foot. Pt then completed dressing at KS, transferring to w/, using LLE on w/c for stability as he completed transfers, min A for guiding hips and stability with transfer. Pt then requested to use the restroom, transferring from w/c to toilet using GBs and SPT, mod A with balance and guiding hips. Pt completed toileting, transferring back to w/, assistance with clothing management. In order to increase BUE strength and functional endurance, pt self-propelled w/c around therapy area ~10 mins, rest breaks as needed, then back to his room. Post OT Tx, pt upright in w/c, call light in reach and all needs met. Education OT Patient Education: Correct positioning, Modified ADL techniques, Progress toward Goal/Update tx plan, Purpose of tx/functional activities, Safety issues, Use of adapted equipment Teaching Recipient: Patient Teaching Methods: Discussion Response to Teaching: Verbalize Understanding OT Short Term Goals Short Term Goals Time Frame: Jul 11, 2020 Shower/bathe self: 3 Lower body dressin OT Biological Scientist Goals Residential Goals Time Frame: Jul 25, 2020 Eating (QC): 6 Oral Hygiene (QC): 6 Toileting Hygiene (QC): 6 Shower/Bathe Self (QC): 6 Upper Body Dressing (QC): 6 Lower Body Dressing (QC): 6 On/Off Footwear (QC): 6 Additional Goals: 1-Demonstrate ADL Tasks, 2-Verbalize Understanding, 3- ImproveStrength/Chadd 1=Demonstrate adherence to instructed precautions during ADL tasks. 2=Patient will verbalize/demonstrate understanding of assistive devices/modifications for ADL. 3=Patient will improve strength/tolerance for activity to enable patient to perform ADL's. OT Education/Plan Problem List/Assessment Assessment: Decreased Activ Tolerance, Decreased UE Strength, Impaired Funct Balance, Impaired I ADL's, Impaired Self-Care Skills Discharge Recommendations Plan/Recommendations: Continue POC Treatment Plan/Plan of Care Patient would benefit from OT for education, treatment and training to promote independence in ADL's, mobility, safety and/or upper extremity function for ADL's. Plan of Care: ADL Retraining, Functional Mobility, Group Exercise/Act as Ind, UE Funct Exercise/Act, UE Neuromus Re-Ed/Coord, W/C Management Training Treatment Duration: Jul 25, 2020 Frequency: At least 5 of 7 days/Wk (IRF) Estimated Hrs Per Day: 1.5 hours per day Rehab Potential: Fair Time/GCodes Start Time: 08:00 Stop Time: 09:15 Total Time Billed (hr/min): 75 Billed Treatment Time 1, ADL 4 (65'), FA (10') JUAN C LOW OT Jul 02, 2020 09:16
--- NOTE | 2020-07-02 09:41 | PM&R Progress Note ---
Subjective HPI/CC On Admission Date Seen by Provider: Jul 02, 2020 Time Seen by Provider: 10:00 Subjective/Events-last exam Pt settling into rehab very well No pain except for phantom pain of his right below the knee amputation BP remains stable Labs reviewed Overall feels like he is making some progress Will DC IV Conferred with RN Reviewed therapy notes Checked meds and labs Review of Systems General: Fatigue, Malaise Musculoskeletal: leg pain Neurological: Weakness Objective Exam Vital Signs Vital Signs Date Time Temp Pulse Resp B/P (MAP) Pulse Ox O2 Delivery O2 Flow Rate FiO2 07/02/20 21:22 Room Air 07/02/20 18:00 36.2 79 20 123/83 (96) 97 Capillary Refill : Less Than 3 Seconds General Appearance: No Apparent Distress, WD/WN, Chronically ill, Obese HEENT: PERRL/EOMI, Normal ENT Inspection, Pharynx Normal Neck: Full Range of Motion, Normal Inspection, Non Tender, Supple Respiratory: Chest Non Tender, Lungs Clear, Normal Breath Sounds, No Accessory Muscle Use, No Respiratory Distress, Other (Slight SOB from exertion ) Cardiovascular: Regular Rate, Rhythm, No Edema, No Gallop, No JVD, No Murmur Gastrointestinal: No Organomegaly, No Pulsatile Mass, Non Tender, Soft Back: Normal Inspection, No CVA Tenderness, No Vertebral Tenderness Extremity: Normal Inspection, Normal Range of Motion, Non Tender, No Calf Tenderness, No Pedal Edema, Other (right BKA) Neurologic/Psychiatric: Alert, Oriented x3, No Motor/Sensory Deficits, Normal Mood/Affect, assessment counselor II-XII Norm as Tested, Motor Weakness (left sided weakness 3/5) Reflexes: 2+ Bicep (R) (Brachioradialis); 1+ Bicep (L) (Brachioradialis ); 2+ Knee (L) Skin: Normal Color, Warm/Dry Results/Procedures Lab Laboratory Tests 07/02/20 05:38 Patient resulted labs reviewed. FIM Transfers Therapy Code Descriptions/Definitions Functional [place] Measure: 0=Not Assessed/NA 4=Minimal Assistance 1=Total Assistance 5=Supervision or Setup 2=Maximal Assistance 6=Modified [place] 3=Moderate Assistance 7=Complete IndependenceSCALE: Activities may be completed with or without assistive devices. 8-Vpokxgguhm-jkonool completes the activity by him/herself with no assistance from a helper. 5-Set-up or Clean-up Assistance-helper sets up or cleans up; patient completes activity. [place] assists only prior to or following the activity. 4-Supervision or Touching Assistance-helper provides verbal cues and/or touching/steadying and/or contact guard assistance as patient completes act ivity. Assistance may be provided throughout the activity or intermittently. 3-Partial/Moderate Assistance-helper does LESS THAN HALF the effort. [place] lifts, holds or supports trunk or limbs, but provides less than half the effort. 2-Substantial/Maximal Assistance-helper does MORE THAN HALF the effort. [place] lifts or holds trunk or limbs and provides more than half the effort. 9-Qsvzjobbq-tfgmrn does ALL the effort. Patient does none of the effort to complete the activity. Or, the assistance of 2 or more helpers is required for the patient to complete the activity. If activity was not attempted, code reason: 7-Patient Refused. 9-Not Applicable-not attempted and the patient did not perform the activity before the current illness, exacerbation or injury. 10-Not Attempted due to Environmental Limitations-(lack of equipment, weather restraints, etc.). 88-Not Attempted due to Medical Conditions or Safety Concerns. Roll Left to Right (QC): 4 Sit to Lying (QC): 4 Sit to Stand (QC): 3 Chair/Aut-wi-Vgnho Xfer(QC): 2 Car Transfer (QC): 3 (Used slide board) Gait Training Does the Patient Walk?: No and Walking Goal NOT indicated Walk 10 feet (QC): 88 Walk 50 ft with 2 Turns(QC): 88 Walk 150 ft (QC): 88 Walking 10ft/uneven surface-QC: 88 Wheelchair Training Does the Pt Use a Wheelchair?: Yes Distance: See PT goals Wheel 50 ft with 2 turns (QC): 4 Wheel 150 ft (QC): 4 Type of Wheelchair: Manual Stair Training 1 Step (curb) (QC): 88 4 Steps (QC): 88 12 Steps (QC): 88 Balance Picking up an Object (QC): 88 ADL-Treatment Eating (QC): 5 (Per pt report, he has assistance cutting food then he is able to use utensils to get food to mouth) Oral Hygiene (QC): 6 (independent at sink) Shower/Bathe Self (QC): 3 (Assistance washing LLE and back. Pt able to wash all other parts in sitting.) Upper Body Dressing (QC): 5 (set up) Lower Body Dressing (QC): 1 (Pt able to thread BLEs into underwear and pants. X2 assist required in stance and assistance with pant hike.) On/Off Footwear (QC): 3 (Pt able to doff sock, assistance donning) Toileting Hygiene (QC): 3 (Pt able to manage pants down and perform hygiene, assistance managing pants up.) Toilet Transfer (QC): 3 (Min A stand pivot transfer using GBs, pt used LLE residual limb in w/c during transfer.) Assessment/Plan Assessment and Plan Assess & Plan/Chief Complaint Assessment: CVA w/left sided weakness Smoker Right BKA hx Chronic disability HTN HLP CRI Plan: IRF protocol Monitor BP Monitor creatinine 07/02/20: Discontinue IV Pain control Fall risk Smoking cessation (1) CVA (cerebral vascular accident) (2) Carotid stenosis Status: Chronic (3) History of CVA with residual deficit Status: Chronic (4) Amputee of extremity Status: Chronic (5) PAD (peripheral artery disease) Status: Chronic (6) Non-insulin dependent type 2 diabetes mellitus Status: Chronic (7) CKD (chronic kidney disease) Status: Chronic (8) HLD (hyperlipidemia) Status: Chronic (9) Essential (primary) hypertension Status: Chronic (10) Left-sided weakness (11) Smoker within last 12 months Status: Acute TREY MARIN DO Jul 02, 2020 09:41
--- NOTE | 2020-07-02 09:42 | Individualized Plan of Care ---
Individualized Plan of Care Rehab Nursing IPOC Order Admission Date Jul 01, 2020 at 10:40 Current Orders Orders Admission Order(Inpt,Obs,Sdc) (07/01/20 05:58) Vital Signs: Per Unit Policy ( 08,16,00 (07/01/20 05:58) Isidoro Sosa 09,21 (07/01/20 05:58) Sequential Compression Device Q4H (07/01/20 05:58) Occ Ther-Inpt Rehab Con (07/01/20 05:58) Rehab Nursing Orders-Ipoc (07/01/20 05:58) Physical Therapy Rehab Orders (07/01/20 05:58) Occupational Therapy Rehab Ord (07/01/20 05:58) Speech Therapy Rehab Orders (07/01/20 05:58) Cbc With Automated Diff (07/02/20 06:00) Comprehensive Metabolic Panel (07/02/20 06:00) General/Regular (07/01/20 Breakfast) Intake & Output 06,14,22 (07/01/20 05:58) Precautions (Aru) (07/01/20 05:58) Weekly Weight WEEK (07/01/20 05:58) Rehab-Intensity Of Therapy (07/01/20 05:58) Initiate Admission Nursing Pro .admission (07/01/20 05:58) Acetaminophen Tablet (Tylenol Tablet) (07/01/20 06:00) Alprazolam Tablet (Xanax Tablet) (07/01/20 06:00) Calcium Carbonate Chew Tablet (Antacid C (07/01/20 06:00) Diphenhydramine Tablet (Benadryl Tablet) (07/01/20 06:00) Docusate Sodium Capsule (Colace Capsule) (07/01/20 09:00) Docusate Sodium Capsule (Colace Capsule) (07/01/20 06:00) Bisacodyl Suppository (Dulcolax Supposit (07/01/20 06:00) Lactulose Oral Solution (Enulose Oral So (07/01/20 06:00) Na Phos/Na Biphos Enema (Fleet Enema Mike (07/01/20 06:00) Guaifenesin/Codeine Syrup (Robitussin Ac (07/01/20 06:00) Loperamide Tablet (Imodium Tablet) (07/01/20 06:00) Enoxaparin Injection (Lovenox Injection) (07/01/20 17:00) Melatonin Tablet (Melatonin Tablet) (07/01/20 06:00) Polyethylene Glycol Powder Pkt (Miralax (07/01/20 09:00) Ondansetron Oral Dissolve Tab (Zofran (07/01/20 06:00) Senna S Tablet (Senokot S Tablet) (07/01/20 09:00) Code/Resuscitation (07/01/20 05:58) Initiate Admission Nursing Pro .admission (07/01/20 05:58) Admission Arrival Bed Request (07/01/20 10:46) Admission Arrival Bed Request (07/01/20 10:44) Patient Visit (07/01/20 ) Pt Eval Moderate Complexity (07/01/20 ) Functional Activities, Ea 15 (07/01/20 ) Patient Visit (07/01/20 ) Exercise Therap, Ea 15 Min (07/01/20 ) Functional Activities, Ea 15 (07/01/20 ) Code/Resuscitation (07/01/20 18:37) Accucheck Achs ACHS (07/01/20 18:37) Incentive Spirometry (Nursing) Q2H (07/01/20 18:37) Dys3 Advanced (07/01/20 Dinner) (Nf) Dextromethorphan Hbr/Chlor-Mal (Cor (07/01/20 18:45) Albuterol Pre-Mix Nebs (Rt) (Proventil (07/01/20 18:45) Aspirin Enteric Coated Tablet (Ecotrin T (07/02/20 09:00) Atorvastatin Tablet (Lipitor) (07/01/20 21:00) Clopidogrel Tablet (Plavix Tablet) (07/02/20 09:00) Enoxaparin Injection (Lovenox Injection) (07/01/20 18:45) Hydrocodone/Apap 5/325 Tablet (Lortab 5 (07/01/20 18:45) Melatonin Tablet (Melatonin Tablet) (07/01/20 18:45) Magnesium Hydroxide Oral Susp (Mom Oral (07/01/20 18:45) Antacid Suspension (Mylanta Suspension (07/01/20 18:45) Insulin Aspart (Novolog) (Novolog (Charg (07/01/20 21:00) Pantoprazole Tablet (Protonix Tablet) (07/02/20 09:00) Benzonatate Capsule (Tessalon Perles) (07/01/20 18:45) Acetaminophen Tablet/Caplet (Tylenol T (07/01/20 18:45) Ondansetron Injection (Zofran Injectio (07/01/20 18:45) Lisinopril Tablet (Zestril Tablet) (07/02/20 09:00) Consult Cardiology (07/01/20 18:37) Incentive Spirometry Initial (07/01/20 18:37) Mat Initiate Protocol (07/01/20 18:37) Svn Small Volume Nebulizer (07/01/20 18:37) Ambulate 08,12,20 (07/01/20 20:31) Sequential Compression Device Q4H (07/01/20 20:31) Dvt/Vte Risk - Notifiy Physici Q4H (07/01/20 20:31) Patient Visit (07/02/20 ) Speech Sound Lang Comp (07/02/20 ) Treat. Speech/Lang/Voice (07/02/20 ) Patient Visit (07/02/20 ) Functional Activities, Ea 15 (07/02/20 ) Exercise Therap, Ea 15 Min (07/02/20 ) Wheelchair Mgmt/Propulsn 15min (07/02/20 ) Iv Discontinue (Order) (07/02/20 15:55) Rehab Nursing Orders: Ongoing Assess. of Cognitive Status, Ongoing Assess. of Function Status, Bladder Management, Bladder Scan, Bladder Training, Bowel Management, Bowel Training, Disease Management & Educaiton, DVT Prophylaxis, Fall Prevention, Fluid/Electrolyte/Nutrition Mgmt, Infection Prevention, Medication Management & Education, Management of Risks & Complications, Management of Skin Intergrity, Nutrition Management, Pain Management, Patient/Family Support, Safety Management Intensity of Therapy to be met Patient to be seen: Min.3h per day/5 of 7d PT IPOC Problem List: Activity Tolerance, Functional Strength, Safety, Balance, Gait, Transfer, Bed Mobility, ROM Treatment Plan: Continue Plan of Care Bed Mobility, Education, Functional Activity Chadd, Functional Strength, Group Therapy, Gait, Safety, Therapeutic Exercise, Transfers Treatment Duration: Jul 22, 2020 Frequency: At least 5 of 7 days/Wk (IRF) Estimated Hrs Per Day: 1.5 hours per day OT IPOC Problems: Decreased Activ Tolerance, Decreased UE Strength, Impaired Funct Balance, Impaired I ADL's, Impaired Self-Care Skills OT Treatment, Training and Edu: Yes Plan of Care: ADL Retraining, Functional Mobility, Group Exercise/Act as Ind, UE Funct Exercise/Act, UE Neuromus Re-Ed/Coord, W/C Management Training Treatment Duration: Jul 25, 2020 Frequency: At least 5 of 7 days/Wk (IRF) Estimated Hrs Per Day: 1.[address] IPOC Speech Therapy Treatment Plan: Modify Plan, See Comments Treatment Duration: Jul 02, 2020 Frequency: Modified Program (IRF) Estimated Hrs Per Day: Other Occ Ther/Case Mgmt Occ Ther/Case Managemen: Discharge Planning Dietitian/Nuclear Chemistry Technician Dietitian/Nuclear Chemistry Technician to monitor nutritional status and make changes and/or recommendations as needed and work with speech pathology on dietary upgrades as the occur. Physician IPOC Medical Issues being managed closely and that require the 24 hour availability of a physician: Patient with recent CVA with h/o prior CVA at risk for recurrent CVA with need of close monitoring for decompensation Medical Issues: Bowel/Bladder Function, DVT Prophylaxis, Falls Precautions, Fluid/Electrolyte/Nutrition Balance, Infection Protection, Pain Management Brief Synthesis of Preadmission Screen, Post-Admission Evaluation, and Therapy Evaluations: PT OT will focus on regaining ADL independence with the use of assistive devices along with fall risk prevention and monitor for any other post CVA needs Medical Prognosis: Good Anticipated Length of Stay: 7 days TREY MARIN DO Jul 02, 2020 09:42
--- NOTE | 2020-07-02 10:06 | Cardiology Progress Note ---
Subjective Date Seen by Provider: Jul 02, 2020 Time Seen by Provider: 10:04 Subjective/Events-last exam Patient sitting up in wheelchair, denies any chest pain or dyspnea. Objective-Cardiology Exam Last Set of Vital Signs Vital Signs 07/02/20 06:19 Temp 36.0 Pulse 76 Resp 16 B/P (MAP) 118/64 (82) Pulse Ox 95 O2 Delivery Room Air Capillary Refill : Less Than 3 Seconds I&O Intake and Output 07/02/20 00:00 Intake Total 840 ml Output Total 900 ml Balance -60 ml Intake Oral 840 ml Output Urine Total 900 ml # Bowel Movements 1 Daily Weight Change No General: Alert, Oriented X3, Cooperative HEENT: Atraumatic, PERRLA Neck: Supple, No JVD, No Thyromegaly Lungs: Clear to Auscultation, Normal Air Movement Heart: Regular Rate, Normal S1, Normal S2, No Murmurs Abdomen: Normal Bowel Sounds, Soft, No Tenderness, No Hepatosplenomegaly, No Masses Extremities: No Clubbing, No Cyanosis, No Tenderness/Swelling, Other (right BKA) Skin: No Rashes, No Significant Lesion Neuro: Cranial Nerves 3-12 NL Psych/Mental Status: Mental Status NL, Mood NL Results Lab Laboratory Tests 07/02/20 05:38 A/P-Cardiology Admission Diagnosis CVA HTN HLP DM Assessment/Plan Status post Acute CVA, had a similar episode in May 2015 with unknown source, was on aspirin and Plavix. Patient had questionable patent foramen ovale with [id number] shunt in 2014. Repeat echo showed mildly enlarged left atrium with mild pulmonary hypertension. Continue on aspirin. Severe right carotid stenosis, will need vascular evaluation in the future Status post loop implant, continue to monitor Hypertension, controlled, continue to monitor response and tolerance to current medication. Hyperlipidemia, well controlled, on Lipitor 40 mg daily. Continue to monitor Tobaccoism, patient has stopped smoking in 2016, encouraged to continue with smoking cessation Right BKA, patient reported that he had a blood clot and sudden cold foot, possible embolization. It could be related to the patent foramen ovale or occult arrhythmia Diabetes mellitus, followed and managed by primary care physician Obesity, questionable underlying sleep apnea Patient was seen and evaluated with Maritza, examination performed, management plan was discussed, agree with the current scribed note, I made few changes to the note using Italic font Patient was seen and evaluated, feeling better, doing better and improving Moved to inpatient rehabilitation today. Clinical Quality Measures DVT/VTE Risk/Contraindication: Risk Factor Score Per Nursin RFS Level Per Nursing on Admit: 4+=Very High MARITZA GILLIS Jul 02, 2020 10:06 am MATY ROBERTSON MD Jul 02, 2020 2:21 pm
[2020-07-02] MEDS: PANTOPRAZOLE 40 MG (PROTONIX) TAB PO SCH (10:20)
[2020-07-02] MEDS: CLOPIDOGREL 75 MG (PLAVIX) TABLET PO SCH (10:20)
[2020-07-02] MEDS: SENNA W/DOCUSATE (SENOKOT S) TABLET PO SCH ×2 (10:21→20:14)
[2020-07-02] MEDS: ASPIRIN E.C. 81 MG (ECOTRIN) TAB PO SCH (10:21)
[2020-07-02] MEDS: lisINopril 40 MG (PRINIVIL) TABLET PO SCH (10:21)
[2020-07-02] MEDS: DOCUSATE SODIUM 100 MG (COLACE) CAP PO SCH ×2 (10:21→20:14)
[2020-07-02] MEDS: polyethylene glycoL POWDER 17 GM (MIRALAX) PACK PO SCH ×2 (10:24→20:14)
--- NOTE | 2020-07-02 10:59 | Physical Therapy Daily Note ---
PT Daily Note-Current Subjective Pt.agrees to Rx. Explains some of hsi medical history and timeline as well as his living situation. Pt. feels he has made progress but knows his GF will be nervous about his return to home , pt. co pain at 4/10 in R residual limb. Pain Numeric Pain Scale: 4 Location: Right Location Body Site: Knee (BKA disatal) Pain Description: Pressure Mental Status Patient Orientation: Normal For Age Transfers SCALE: Activities may be completed with or without assistive devices. 9-Jqnpkhnkmp-ninkxth completes the activity by him/herself with no assistance from a helper. 5-Set-up or Clean-up Assistance-helper sets up or cleans up; patient completes activity. [place] assists only prior to or following the activity. 4-Supervision or Touching Assistance-helper provides verbal cues and/or touching/steadying and/or contact guard assistance as patient completes activity. Assistance may be provided throughout the activity or intermittently. 3-Partial/Moderate Assistance-helper does LESS THAN HALF the effort. [place] lifts, holds or supports trunk or limbs, but provides less than half the effort. 2-Substantial/Maximal Assistance-helper does MORE THAN HALF the effort. [place] lifts or holds trunk or limbs and provides more than half the effort. 0-Kuffkyqgz-dylsgc does ALL the effort. Patient does none of the effort to complete the activity. Or, the assistance of 2 or more helpers is required for the patient to complete the activity. If activity was not attempted, code reason: 7-Patient Refused. 9-Not Applicable-not attempted and the patient did not perform the activity before the current illness, exacerbation or injury. 10-Not Attempted due to Environmental Limitations-(lack of equipment, weather restraints, etc.). 88-Not Attempted due to Medical Conditions or Safety Concerns. Roll Left & Right (QC): 5 Sit to Lying (QC): 5 Lying to Sitting/Side of Bed(Q: 5 Sit to Stand (QC): 4 Chair/Bik-sf-Sryrq Xfer(QC): 4 Pt. with straight on TRF approach x2 trials and 90 degree SPT to right x2 both with CGA to min assist, pt. appears fatigued, somewhat dyspneic and needs rest breaks, instruction and education needed for TRF and approaches. Pt has used wt bearing on flexed residual limb TRF for quite some time and prides himself on the level of indep he has maintained thus far Gait Training Does the Patient Walk?: No and Walking Goal NOT indicated Wheelchair Training Does the Pt Use a Wheelchair?: Yes Wheel 50 ft with 2 turns (QC): 6 Wheel 150 ft (QC): 6 Type of Wheelchair: Manual pt. is very slow and needs rest breaks and is mildly SOB , this is audible. w/c mob is slow and pt takes his time. will trial on ramp this PM Exercises Supine Ex: Bridging, Ankle pumps, Quad Set, Rolling, Glut sets, Heel Slides, Short Arc Quads, Scooting, Straight leg raise, Hip abd/add Supine Reps: 15 Seated Therapy Exercises: Ankle pumps, Sit to stand, Long arc quads, Chair press-ups, Hip flexion Seated Reps: 10 Assessment Current Status: Good Progress gives good effort, may need to consider safer TRF technique as CVA has left UEs weaker etc PT Short Term Goals Short Term Goals Time Frame: Jul 08, 2020 Roll Left & Right: 6 Sit to lyin Lying to sitting on side of be: 6 Sit to stand: 4 Chair/wbq-do-axktl transfer: 4 PT Editing Computer Publisher Goals Senior Living Goals PT Senior Living Goals Time Frame: Jul 22, 2020 Roll Left & Right (QC): 6 Sit to Lying (QC): 6 Lying-Sitting on Side/Bed(QC): 6 Sit to Stand (QC): 5 Chair/Ram-jj-Ihpaw Xfer(QC): 5 Toilet Transfer (QC): 5 Car Transfer (QC): 5 Does the Patient Walk: No and Walking Goal NOT indicated Walk 10 feet (QC): 88 Walk 50ft with 2 Turns (QC): 88 Walk 150 ft (QC): 88 Walking 10ft on Uneven Surface: 88 1 Step (curb) (QC): 88 4 Steps (QC): 88 12 Steps (QC): 88 Picking up an Object (QC): 88 Does the Pt use WC or Scooter?: No Wheel 50 feet with 2 turns (QC: 6 Type: N/A Wheel 150 feet: 6 Type: N/A PT Plan Treatment/Plan Treatment Plan: Continue Plan of Care Treatment Plan: Bed Mobility, Education, Functional Activity Chadd, Functional Strength, Group Therapy, Gait, Safety, Therapeutic Exercise, Transfers Treatment Duration: Jul 22, 2020 Frequency: At least 5 of 7 days/Wk (IRF) Estimated Hrs Per Day: 1.5 hours per day Patient and/or Family Agrees t: Yes Safety Risks/Education Patient Education: Transfer Techniques, Correct Positioning, W/C Management, Disease Process, Safety Issues Teaching Recipient: Patient Teaching Methods: Demonstration, Discussion Response to Teaching: Verbalize Understanding, Return Demonstration, Reinforcement Needed Time/GCodes Time In: 1000 Time Out: 1100 Total Billed Treatment Time: 60 Total Billed Treatment 1,FA35m,w/c 10m,EX15m NETTIE DELONG ABRASIVE B[employer] WINDER Jul 02, 2020 10:59
--- NOTE | 2020-07-02 11:44 | ST Cognitive Linguistic Eval ---
Speech Evaluation-General Medical Diagnosis CVA Onset Date: Jun 26, 2020 Therapy Diagnosis Therapy Diagnosis: Cognitive-communication Referral Referring Physician: Dr. Asher Medical History Pertinent Medical History: CVA, GERD Social History Current Living Status: Friend Speech PLF-Current Status Prior Level of Function Patient lives with his friend in their own home. Patient was independent in his daily needs with support if needed.. Subjective Patient was pleasant and cooperative with the cognitive assessment. Language Eval: Auditory Comprehends Simple Yes/No Ques: Functional Indent/Objects Multiple [place]: Functional Ident/Pics in Multiple [place]: Functional Follows 1-Step Commands: Functional Follows Complex Directions: Mild Follows General Conversations: Functional Language Eval: Verbal Language Completes Spontaneous Greeting: Functional Produces Auto, Serial Info: Functional Imitates Simple Words/Phrases: Functional Word Finding: Mild Requests Basic Needs: Functional States Basic Personal Info: Functional Expresses Complex Ideas: Mild Objective Cognitive Domain Attention: WNL Memory: Mild Problem Solving: Functional Executive Functions: Mild Visuospatial Skills: WNL Composite Severity Rating: WNL Clock Drawing Severity Rating: Mild Objective Formal/Standardized Tests [facility] Status ([facility]) Results 24/30, Mild Neurocognitive Disorder range of function Oral Motor/Speech Production Patient has mild speech disorder, however his speech is at 80-90% intelligible. Impression Patient is a pleasant 50 y/o male who was admitted to the ARU s/p CVA. This is not the patient's first stroke. Patient is noted to be mildly decreased in intellectual ability. Patient was given the SLUMS with a score of 24/30 obtained. Patient's score is within the MNCD range of function. Patient will receive skilled ST services with focus on safety awareness and problem solving so that he may return home in a safer manner. Speech Patient Assess Expression of Ideas/Wants: Exhibits (3) Understanding Verbal Content: Usually Understands (3) Brief Interview-Mental Status: Yes Repetition of Three Words: Three (3) Temporal Orientation: Year: Correct (3) Temporal Orientation: Month: Accurate within 5 days(2) Temporal Orientation: Day: Correct (1) Recall : Wear to say "Sock": Yes,after cueing (1) Recall : Color: Yes, after cueing (1) Recall : Bed: Yes,after cueing (1) Memory/Recall Ability: Current season, That he or she is in a hsp/hsp unit Speech Short Term Goals Short Term Goals Short Term Goals 1) Patient will complete memory tasks related to himself/needs at 90% or greater with minimal cues. 2) Patient will complete safety awareness tasks related to himself/needs at 90% or greater with minimal cues. 3) Patient will complete problem solving tasks related to himself/needs at 90% or greater with minimal cues. Speech Nutrition Coordinator Goals Nutrition Coordinator Goals Patient will improve cognitive-communication ability in order to meet his daily needs with minimal assist. Speech-Plan Patient/Family Goals Patient/Family Goals: Patient plans on returning to his home where he lives with his girlfriend. Treatment Plan Speech Therapy Treatment Plan: Continue Plan of Care Frequency: 4 times per week (Patient will receive skilled ST 4-5x per week) Estimated Hrs Per Day: .5 hour per day Rehab Potential: Fair Barriers to Learning: Patient's decreased cognitive level of function, CVA's Pt/Family Agrees to Plan: Yes Safety Risks/Education Teaching Recipient: Patient Teaching Methods: Discussion Response to Teaching: Verbalize Understanding Education Topics Provided: Safety within his room, utilization of call light as needed Time Speech Therapy Time In: 11:00 Speech Therapy Time Out: 11:30 Total Billed Time: 30 Billed Treatment Time 1, PELON SINGH [address] ST Jul 02, 2020 11:44
--- NOTE | 2020-07-02 13:38 | Physical Therapy Daily Note ---
PT Daily Note-Current Subjective Pt. agrees to w/c mobility training on ramp. States his at home is easier than this Pain Location: No Pain Reported Transfers SCALE: Activities may be completed with or without assistive devices. 7-Oyevbgvbzq-yiermjs completes the activity by him/herself with no assistance from a helper. 5-Set-up or Clean-up Assistance-helper sets up or cleans up; patient completes activity. [place] assists only prior to or following the activity. 4-Supervision or Touching Assistance-helper provides verbal cues and/or touching/steadying and/or contact guard assistance as patient completes activity. Assistance may be provided throughout the activity or intermittently. 3-Partial/Moderate Assistance-helper does LESS THAN HALF the effort. [place] lifts, holds or supports trunk or limbs, but provides less than half the effort. 2-Substantial/Maximal Assistance-helper does MORE THAN HALF the effort. [place] lifts or holds trunk or limbs and provides more than half the effort. 3-Kggfwqicm-saopxp does ALL the effort. Patient does none of the effort to complete the activity. Or, the assistance of 2 or more helpers is required for the patient to complete the activity. If activity was not attempted, code reason: 7-Patient Refused. 9-Not Applicable-not attempted and the patient did not perform the activity before the current illness, exacerbation or injury. 10-Not Attempted due to Environmental Limitations-(lack of equipment, weather restraints, etc.). 88-Not Attempted due to Medical Conditions or Safety Concerns. Wheelchair Training Does the Pt Use a Wheelchair?: Yes Wheel 50 ft with 2 turns (QC): 6 Wheel 150 ft (QC): 6 Type of Wheelchair: Manual up down ramp gentle grade indep, 360 turns in small space indep, needs time to complete Exercises Seated Therapy Exercises: Ankle pumps, Long arc quads, Chair press-ups, Hip flexion, Hip abd/add Seated Reps: 12 Assessment Current Status: Good Progress needs guidance PT Short Term Goals Short Term Goals Time Frame: Jul 08, 2020 Roll Left & Right: 6 Sit to lyin Lying to sitting on side of be: 6 Sit to stand: 4 Chair/mof-om-kblxe transfer: 4 PT Residential Goals Residential Goals PT Assigner Goals Time Frame: Jul 22, 2020 Roll Left & Right (QC): 6 Sit to Lying (QC): 6 Lying-Sitting on Side/Bed(QC): 6 Sit to Stand (QC): 5 Chair/Lbh-ps-Dqvfa Xfer(QC): 5 Toilet Transfer (QC): 5 Car Transfer (QC): 5 Does the Patient Walk: No and Walking Goal NOT indicated Walk 10 feet (QC): 88 Walk 50ft with 2 Turns (QC): 88 Walk 150 ft (QC): 88 Walking 10ft on Uneven Surface: 88 1 Step (curb) (QC): 88 4 Steps (QC): 88 12 Steps (QC): 88 Picking up an Object (QC): 88 Does the Pt use WC or Scooter?: No Wheel 50 feet with 2 turns (QC: 6 Type: N/A Wheel 150 feet: 6 Type: N/A PT Plan Treatment/Plan Treatment Plan: Continue Plan of Care Treatment Plan: Bed Mobility, Education, Functional Activity Chadd, Functional Strength, Group Therapy, Gait, Safety, Therapeutic Exercise, Transfers Treatment Duration: Jul 22, 2020 Frequency: At least 5 of 7 days/Wk (IRF) Estimated Hrs Per Day: 1.5 hours per day Patient and/or Family Agrees t: Yes Safety Risks/Education Patient Education: Transfer Techniques, Correct Positioning, W/C Management, Safety Issues Teaching Recipient: Patient Teaching Methods: Demonstration, Discussion Response to Teaching: Verbalize Understanding, Return Demonstration, Reinfor cement Needed Time/GCodes Time In: 1315 Time Out: 1330 Total Billed Treatment Time: 15 Total Billed Treatment 1,w/c 15m NETTIE DELONG PTA Jul 02, 2020 13:37
[2020-07-02 18:00] VITALS: BP 123/83
[2020-07-02] MEDS: ENOXAPARIN 40 MG/0.4 ML (LOVENOX) SYR SC SCH (18:10)
[2020-07-03] MEDS: HYDROcodone/APAP 5 MG/325 MG (LORTAB) TAB PO PRN ×4 (01:07→20:15)
[2020-07-03 05:03] VITALS: BP 116/75
[2020-07-03] MEDS: inSUlin ASPART (NovoLOG) 1 UNIT/0.01 ML (CHARGE PER UNIT) SC SCH ×4 (05:44→20:14)
--- NOTE | 2020-07-03 08:33 | Cardiology Progress Note ---
Subjective Date Seen by Provider: Jul 03, 2020 Time Seen by Provider: 08:32 Subjective/Events-last exam Patient in wheelchair, denies any chest pain or palpitations. Review of Systems General: No Chills, No Night Sweats, No Fatigue, No Malaise, No Appetite, No Other HEENT: No Head Aches, No Visual Changes, No Eye Pain, No Ear Pain, No Dysphasia, No Sinus Congestion, No Post Nasal Drip, No Sore Throat, No Other Pulmonary: No Dyspnea, No Cough, No Pleuritic Chest Pain, No Other Cardiovascular: No: Chest Pain, Palpitations, Orthopnea, Paroxysmal Noc. Dyspnea, Edema, Lt Headedness, Other Objective-Cardiology Exam Last Set of Vital Signs Vital Signs 07/03/20 07/03/20 05:03 08:55 Temp 36.5 Pulse 88 Resp 20 B/P (MAP) 133/83 (100) Pulse Ox 97 O2 Delivery Room Air Capillary Refill : Less Than 3 Seconds I&O Intake and Output 07/03/20 00:00 Intake Total 1480 ml Output Total 1975 ml Balance -495 ml Intake Oral 1480 ml Output Urine Total 1975 ml # Bowel Movements 1 General: Alert, Oriented X3, Cooperative HEENT: Atraumatic, PERRLA Neck: Supple, No JVD, No Thyromegaly Lungs: Clear to Auscultation, Normal Air Movement Heart: Regular Rate, Normal S1, Normal S2, No Murmurs Abdomen: Normal Bowel Sounds, Soft, No Tenderness, No Hepatosplenomegaly, No Masses Extremities: No Clubbing, No Cyanosis, No Tenderness/Swelling, Other (right BKA) Skin: No Rashes, No Significant Lesion Neuro: Cranial Nerves 3-12 NL Psych/Mental Status: Mental Status NL, Mood NL A/P-Cardiology Admission Diagnosis CVA HTN HLP DM Assessment/Plan Status post Acute CVA, had a similar episode in May 2015 with unknown source, was on aspirin and Plavix. Patient had questionable patent foramen ovale with frnz-dm-pwjgn shunt in 2014. Repeat echo showed mildly enlarged left atrium with mild pulmonary hypertension. Continue on aspirin. Severe right carotid stenosis, will need vascular evaluation in the future Status post loop implant, continue to monitor Hypertension, controlled, continue to monitor response and tolerance to current medication. Hyperlipidemia, well controlled, on Lipitor 40 mg daily. Continue to monitor Tobaccoism, patient has stopped smoking in 2017, encouraged to continue with smo aristides cessation Right BKA, patient reported that he had a blood clot and sudden cold foot, possible embolization. It could be related to the patent foramen ovale or occult arrhythmia Diabetes mellitus, followed and managed by primary care physician Obesity, questionable underlying sleep apnea Patient was seen and evaluated with Maritza, examination performed, management plan was discussed, agree with the current scribed note, I made few changes to the note using Italic font Patient is feeling better, doing better. Continue with physical therapy Continue to monitor her loop Monitor blood pressure Clinical Quality Measures DVT/VTE Risk/Contraindication: Risk Factor Score Per Nursin RFS Level Per Nursing on Admit: 4+=Very High MARITZA GILLIS Jul 03, 2020 8:33 am MATY ROBERTSON MD Jul 03, 2020 9:10 am
[2020-07-03 08:55] VITALS: BP 133/83
[2020-07-03] MEDS: SENNA W/DOCUSATE (SENOKOT S) TABLET PO SCH ×2 (08:56→20:15)
[2020-07-03] MEDS: DOCUSATE SODIUM 100 MG (COLACE) CAP PO SCH ×2 (08:56→20:18)
[2020-07-03] MEDS: polyethylene glycoL POWDER 17 GM (MIRALAX) PACK PO SCH ×2 (08:56→20:15)
[2020-07-03] MEDS: lisINopril 40 MG (PRINIVIL) TABLET PO SCH (08:56)
[2020-07-03] MEDS: CLOPIDOGREL 75 MG (PLAVIX) TABLET PO SCH (08:56)
[2020-07-03] MEDS: PANTOPRAZOLE 40 MG (PROTONIX) TAB PO SCH (08:56)
[2020-07-03] MEDS: ASPIRIN E.C. 81 MG (ECOTRIN) TAB PO SCH (08:56)
--- NOTE | 2020-07-03 09:25 | Occupational Ther Daily Note ---
OT Current Status-Daily Note Subjective Pt seated in recliner, agreeable to OT tx. Pt declined ADLs stating he has already gotten dressed, brushed his teeth, and toileted this AM. ADL-Treatment Therapy Code Descriptions/Definitions Functional [place] Measure: 0=Not Assessed/NA 4=Minimal Assistance 1=Total Assistance 5=Supervision or Setup 2=Maximal Assistance 6=Modified [place] 3=Moderate Assistance 7=Complete IndependenceSCALE: Activities may be completed with or without assistive devices. 0-Tkgntwhzrf-mtuktkw completes the activity by him/herself with no assistance from a helper. 5-Set-up or Clean-up Assistance-helper sets up or cleans up; patient completes activity. [place] assists only prior to or following the activity. 4-Supervision or Touching Assistance-helper provides verbal cues and/or touching/steadying and/or contact guard assistance as patient completes activity. Assistance may be provided throughout the activity or intermittently. 3-Partial/Moderate Assistance-helper does LESS THAN HALF the effort. [place] lifts, holds or supports trunk or limbs, but provides less than half the effort. 2-Substantial/Maximal Assistance-helper does MORE THAN HALF the effort. [place] lifts or holds trunk or limbs and provides more than half the effort. 3-Eyolpdkgx-xfqwzw does ALL the effort. Patient does none of the effort to complete the activity. Or, the assistance of 2 or more helpers is required for the patient to complete the activity. If activity was not attempted, code reason: 7-Patient Refused. 9-Not Applicable-not attempted and the patient did not perform the activity before the current illness, exacerbation or injury. 10-Not Attempted due to Environmental Limitations-(lack of equipment, weather restraints, etc.). 88-Not Attempted due to Medical Conditions or Safety Concerns. Oral Hygiene (QC): 6 (pt completed seated at w/c prior to therapy, pt reports no difficulty and no assistance.) Toileting Hygiene (QC): 5 (clean up assist urinal) Other Treatment Pt seated in w/c, self-propelled w/c to therapy gym. In order to increase BUE functional strength and endurance and to increase bilateral integration, pt completed arm bike, min resistance x15 mins. Pt took multiple rest breaks as needed. In order to increase LUE functional strength and endurance, and fine motor coordination, pt completed fine motor task using LUE with 1 lb wrist cuff. Pt 1" pegs from foam pegboard, taking rest breaks as needed, pt able to complete x80 pegs. Pt self-propelled w/c back to his room. Pt able to use urinal with clean up assist. Post OT tx, tx seated in w/c, call light in reach and all needs met. Education OT Patient Education: Correct positioning, Energy conservation, Exercise program, Modified ADL techniques, Progress toward Goal/Update tx plan, Purpose of tx/functional activities, Safety issues, Transfer techniques Teaching Recipient: Patient Teaching Methods: Discussion Response to Teaching: Verbalize Understanding OT Short Term Goals Short Term Goals Time Frame: Jul 11, 2020 Shower/bathe self: 3 Lower body dressin OT Senior Care Goals Superintendent [place] Goals Time Frame: Jul 25, 2020 Eating (QC): 6 Oral Hygiene (QC): 6 Toileting Hygiene (QC): 6 Shower/Bathe Self (QC): 6 Upper Body Dressing (QC): 6 Lower Body Dressing (QC): 6 On/Off Footwear (QC): 6 Additional Goals: 1-Demonstrate ADL Tasks, 2-Verbalize Understanding, 3- ImproveStrength/Chadd 1=Demonstrate adherence to instructed precautions during ADL tasks. 2=Patient will verbalize/demonstrate understanding of assistive devices/modifications for ADL. 3=Patient will improve strength/tolerance for activity to enable patient to perform ADL's. OT Education/Plan Problem List/Assessment Assessment: Decreased Activ Tolerance, Decreased UE Strength, Impaired Funct Balance, Impaired I ADL's, Impaired Self-Care Skills Discharge Recommendations Plan/Recommendations: Continue POC Treatment Plan/Plan of Care Patient would benefit from OT for education, treatment and training to promote independence in ADL's, mobility, safety and/or upper extremity function for ADL's. Plan of Care: ADL Retraining, Functional Mobility, Group Exercise/Act as Ind, UE Funct Exercise/Act, UE Neuromus Re-Ed/Coord, W/C Management Training Treatment Duration: Jul 25, 2020 Frequency: At least 5 of 7 days/Wk (IRF) Estimated Hrs Per Day: 1.5 hours per day Rehab Potential: Fair Time/GCodes Start Time: 09:00 Stop Time: 10:00 Total Time Billed (hr/min): 60 Billed Treatment Time 1, EX (20'), FA 3 (40') JUAN C LOW OT Jul 03, 2020 09:25
--- NOTE | 2020-07-03 11:14 | PM&R Progress Note ---
Subjective HPI/CC On Admission Date Seen by Provider: Jul 03, 2020 Time Seen by Provider: 11:15 Subjective/Events-last exam 07/03/20: BM yesterday No major issues Working with therapy well Pt settling into rehab very well No pain except for phantom pain of his right below the knee amputation BP remains stable Labs reviewed Overall feels like he is making some progress Will DC IV Conferred with RN Reviewed therapy notes Checked meds and labs Review of Systems Musculoskeletal: leg pain Objective Exam Vital Signs Vital Signs Date Time Temp Pulse Resp B/P (MAP) Pulse Ox O2 Delivery O2 Flow Rate FiO2 07/03/20 21:00 Room Air 07/03/20 16:47 36.2 83 16 131/73 (92) 96 Capillary Refill : Less Than 3 Seconds General Appearance: No Apparent Distress, WD/WN, Chronically ill, Obese HEENT: PERRL/EOMI, Normal ENT Inspection, Pharynx Normal Neck: Full Range of Motion, Normal Inspection, Non Tender, Supple Respiratory: Chest Non Tender, Lungs Clear, Normal Breath Sounds, No Accessory Muscle Use, No Respiratory Distress, Other (Slight SOB from exertion ) Cardiovascular: Regular Rate, Rhythm, No Edema, No Gallop, No JVD, No Murmur Gastrointestinal: No Organomegaly, No Pulsatile Mass, Non Tender, Soft Back: Normal Inspection, No CVA Tenderness, No Vertebral Tenderness Extremity: Normal Inspection, Normal Range of Motion, Non Tender, No Calf Tenderness, No Pedal Edema, Other (right BKA) Neurologic/Psychiatric: Alert, Oriented x3, No Motor/Sensory Deficits, Normal Mood/Affect, accounts collector II-XII Norm as Tested, Motor Weakness (left sided weakness 3/5) Reflexes: 2+ Bicep (R) (Brachioradialis); 1+ Bicep (L) (Brachioradialis ); 2+ Knee (L) Skin: Normal Color, Warm/Dry Results/Procedures Lab Patient resulted labs reviewed. FIM Transfers Therapy Code Descriptions/Definitions Functional [place] Measure: 0=Not Assessed/NA 4=Minimal Assistance 1=Total Assistance 5=Supervision or Setup 2=Maximal Assistance 6=Modified [place] 3=Moderate Assistance 7=Complete IndependenceSCALE: Activities may be completed with or without assistive devices. 5-Oeadbuapvb-hxuuhxt completes the activity by him/herself with no assistance from a helper. 5-Set-up or Clean-up Assistance-helper sets up or cleans up; patient completes activity. [place] assists only prior to or following the activity. 4-Supervision or Touching Assistance-helper provides verbal cues and/or touching/steadying and/or contact guard assistance as patient completes activity. Assistance may be provided throughout the activity or intermittently. 3-Partial/Moderate Assistance-helper does LESS THAN HALF the effort. [place] lifts, holds or supports trunk or limbs, but provides less than half the effort. 2-Substantial/Maximal Assistance-helper does MORE THAN HALF the effort. [place] lifts or holds trunk or limbs and provides more than half the effort. 1-Wkawoubup-wbrlqv does ALL the effort. Patient does none of the effort to complete the activity. Or, the assistance of 2 or more helpers is required for the patient to complete the activity. If activity was not attempted, code reason: 7-Patient Refused. 9-Not Applicable-not attempted and the patient did not perform the activity before the current illness, exacerbation or injury. 10-Not Attempted due to Environmental Limitations-(lack of equipment, weather restraints, etc.). 88-Not Attempted due to Medical Conditions or Safety Concerns. Roll Left to Right (QC): 5 Sit to Lying (QC): 5 Sit to Stand (QC): 4 Chair/Zuu-qu-Ewblm Xfer(QC): 4 Car Transfer (QC): 3 (Used slide board) Gait Training Does the Patient Walk?: No and Walking Goal NOT indicated Walk 10 feet (QC): 88 Walk 50 ft with 2 Turns(QC): 88 Walk 150 ft (QC): 88 Walking 10ft/uneven surface-QC: 88 Wheelchair Training Does the Pt Use a Wheelchair?: Yes Distance: See PT goals Wheel 50 ft with 2 turns (QC): 6 Wheel 150 ft (QC): 6 Type of Wheelchair: Manual Stair Training 1 Step (curb) (QC): 88 4 Steps (QC): 88 12 Steps (QC): 88 Balance Picking up an Object (QC): 88 ADL-Treatment Eating (QC): 5 (Per pt report, he has assistance cutting food then he is able to use utensils to get food to mouth) Oral Hygiene (QC): 6 (pt completed seated at w/c prior to therapy, pt reports no difficulty and no assistance.) Shower/Bathe Self (QC): 3 (Assistance washing LLE and back. Pt able to wash all other parts in sitting.) Upper Body Dressing (QC): 5 (set up) Lower Body Dressing (QC): 1 (Pt able to thread BLEs into underwear and pants. X2 assist required in stance and assistance with pant hike.) On/Off Footwear (QC): 3 (Pt able to doff sock, assistance donning) Toileting Hygiene (QC): 3 (Pt able to manage pants down and perform hygiene, assistance managing pants up.) Toilet Transfer (QC): 3 (Min A stand pivot transfer using GBs, pt used LLE residual limb in w/c during transfer.) Assessment/Plan Assessment and Plan Assess & Plan/Chief Complaint Assessment: CVA w/left sided weakness Smoker Right BKA hx Chronic disability HTN HLP CRI Plan: IRF protocol Monitor BP Monitor creatinine 07/02/20: Discontinue IV Pain control Fall risk Smoking cessation 07/03/20: Phantom pain management Therapy (1) CVA (cerebral vascular accident) (2) Carotid stenosis Status: Chronic (3) History of CVA with residual deficit Status: Chronic (4) Amputee of extremity Status: Chronic (5) PAD (peripheral artery disease) Status: Chronic (6) Non-insulin dependent type 2 diabetes mellitus Status: Chronic (7) CKD (chronic kidney disease) Status: Chronic (8) HLD (hyperlipidemia) Status: Chronic (9) Essential (primary) hypertension Status: Chronic (10) Left-sided weakness (11) Smoker within last 12 months Status: Acute TREY MARIN DO Jul 03, 2020 11:14
--- NOTE | 2020-07-03 11:55 | Physical Therapy Daily Note ---
PT Daily Note-Current Subjective Pt presents upright in wheelchair; pt agrees to PT. Pt does not complain of pain. Appearance Pt is returned to room in wheelchair where he remains with access to call kevin nance, and all needs being met. Mental Status Patient Orientation: Person, Place, Time, Eyes Open, Situation Transfers SCALE: Activities may be completed with or without assistive devices. 2-Sqhzxxuvxe-acmwcwp completes the activity by him/herself with no assistance from a helper. 5-Set-up or Clean-up Assistance-helper sets up or cleans up; patient completes activity. [place] assists only prior to or following the activity. 4-Supervision or Touching Assistance-helper provides verbal cues and/or touching/steadying and/or contact guard assistance as patient completes activity. Assistance may be provided throughout the activity or intermittently. 3-Partial/Moderate Assistance-helper does LESS THAN HALF the effort. [place] lifts, holds or supports trunk or limbs, but provides less than half the effort. 2-Substantial/Maximal Assistance-helper does MORE THAN HALF the effort. [place] lifts or holds trunk or limbs and provides more than half the effort. 1-Kqfkmgeym-wdmgfx does ALL the effort. Patient does none of the effort to complete the activity. Or, the assistance of 2 or more helpers is required for the patient to complete the activity. If activity was not attempted, code reason: 7-Patient Refused. 9-Not Applicable-not attempted and the patient did not perform the activity before the current illness, exacerbation or injury. 10-Not Attempted due to Environmental Limitations-(lack of equipment, weather restraints, etc.). 88-Not Attempted due to Medical Conditions or Safety Concerns. Sit to Lying (QC): 6 Lying to Sitting/Side of Bed(Q: 3 Sit to Stand (QC): 3 Chair/Qud-sc-Latet Xfer(QC): 4 Pt allowed to complete transfers in his own unique way with therapist providing CGA. Wheelchair Training Does the Pt Use a Wheelchair?: Yes Wheel 50 ft with 2 turns (QC): 4 Wheel 150 ft (QC): 4 Type of Wheelchair: Manual Pt cued to use his L LE as well as UEs. Exercises Supine Ex: Bridging (SL Left 3x5), Short Arc Quads, Straight leg raise, Hip abd/add Supine Reps: 20 Seated Therapy Exercises: Ankle pumps, Long arc quads, Hip flexion Seated Reps: 20 Treatments LE Strengthening Assessment Current Status: Fair Progress Pt lacks strength and balance to complete SL sit to stand; pt relies on residual limb to stabilize and weightbear. Pt was able to complete single leg bridges, these did fatigue him quickly. PT Short Term Goals Short Term Goals Time Frame: Jul 08, 2020 Roll Left & Right: 6 Sit to lyin Lying to sitting on side of be: 6 Sit to stand: 4 Chair/ciy-lw-mdmpq transfer: 4 PT Usp Goals Control Technician Goals PT Usp Goals Time Frame: Jul 22, 2020 Roll Left & Right (QC): 6 Sit to Lying (QC): 6 Lying-Sitting on Side/Bed(QC): 6 Sit to Stand (QC): 5 Chair/Yjs-mu-Vulfr Xfer(QC): 5 Toilet Transfer (QC): 5 Car Transfer (QC): 5 Does the Patient Walk: No and Walking Goal NOT indicated Walk 10 feet (QC): 88 Walk 50ft with 2 Turns (QC): 88 Walk 150 ft (QC): 88 Walking 10ft on Uneven Surface: 88 1 Step (curb) (QC): 88 4 Steps (QC): 88 12 Steps (QC): 88 Picking up an Object (QC): 88 Does the Pt use WC or Scooter?: No Wheel 50 feet with 2 turns (QC: 6 Type: N/A Wheel 150 feet: 6 Type: N/A PT Plan Problem List Problem List: Activity Tolerance, Functional Strength, Safety, Balance, Gait, Transfer, Bed Mobility, ROM Treatment/Plan Treatment Plan: Continue Plan of Care Treatment Plan: Bed Mobility, Education, Functional Activity Chadd, Functional Strength, Group Therapy, Gait, Safety, Therapeutic Exercise, Transfers Treatment Duration: Jul 22, 2020 Frequency: At least 5 of 7 days/Wk (IRF) Estimated Hrs Per Day: 1.5 hours per day Patient and/or Family Agrees t: Yes Safety Risks/Education Patient Education: Transfer Techniques, W/C Management, Safety Issues Teaching Recipient: Patient Teaching Methods: Demonstration, Discussion Response to Teaching: Reinforcement Needed Time/GCodes Time In: 1100 Time Out: 1200 Total Billed Treatment Time: 60 Total Billed Treatment 1 visit EX 45' FA 15' AMELIA COSTELLO PT Jul 03, 2020 11:55
--- NOTE | 2020-07-03 13:25 | Occupational Ther Daily Note ---
OT Current Status-Daily Note Subjective Pt seated in w/c, agreeable to OT. Declined ADLs at this time stating he just used his urinal ADL-Treatment Therapy Code Descriptions/Definitions Functional [place] Measure: 0=Not Assessed/NA 4=Minimal Assistance 1=Total Assistance 5=Supervision or Setup 2=Maximal Assistance 6=Modified [place] 3=Moderate Assistance 7=Complete IndependenceSCALE: Activities may be completed with or without assistive devices. 5-Qaknbvlcwt-ituoxhb completes the activity by him/herself with no assistance from a helper. 5-Set-up or Clean-up Assistance-helper sets up or cleans up; patient completes activity. [place] assists only prior to or following the activity. 4-Supervision or Touching Assistance-helper provides verbal cues and/or touching/steadying and/or contact guard assistance as patient completes activity. Assistance may be provided throughout the activity or intermittently. 3-Partial/Moderate Assistance-helper does LESS THAN HALF the effort. [place] lifts, holds or supports trunk or limbs, but provides less than half the effort. 2-Substantial/Maximal Assistance-helper does MORE THAN HALF the effort. [place] lifts or holds trunk or limbs and provides more than half the effort. 9-Fwrkqldww-qkxlcb does ALL the effort. Patient does none of the effort to complete the activity. Or, the assistance of 2 or more helpers is required for the patient to complete the activity. If activity was not attempted, code reason: 7-Patient Refused. 9-Not Applicable-not attempted and the patient did not perform the activity before the current illness, exacerbation or injury. 10-Not Attempted due to Environmental Limitations-(lack of equipment, weather restraints, etc.). 88-Not Attempted due to Medical Conditions or Safety Concerns. Other Treatment Pt seated in w/c, agreeable to OT Tx. Pt expresses wishes to be able to propel w/c to convenient store again when he returns home, store is ~1/4 mile away from his house. In order to increase BUE strength and functional mobility so pt is better able to propel w/c in community, pt practiced w/c mobility around hospital, pt took rest breaks as needed and maneuvered w/c around obstacles and people. Pt then returned to his room. Post OT tx, pt seated in w/c, call light in reach and all needs met. Education OT Patient Education: Correct positioning, Energy conservation, Modified ADL techniques, Progress toward Goal/Update tx plan, Purpose of tx/functional activities, Safety issues, W/C management Teaching Recipient: Patient Teaching Methods: Discussion Response to Teaching: Verbalize Understanding OT Short Term Goals Short Term Goals Time Frame: Jul 11, 2020 Shower/bathe self: 3 Lower body dressin OT Care Home Goals Contract Administrative Assistant Goals Time Frame: Jul 25, 2020 Eating (QC): 6 Oral Hygiene (QC): 6 Toileting Hygiene (QC): 6 Shower/Bathe Self (QC): 6 Upper Body Dressing (QC): 6 Lower Body Dressing (QC): 6 On/Off Footwear (QC): 6 Additional Goals: 1-Demonstrate ADL Tasks, 2-Verbalize Understanding, 3- ImproveStrength/Chadd 1=Demonstrate adherence to instructed precautions during ADL tasks. 2=Patient will verbalize/demonstrate understanding of assistive devices/modifications for ADL. 3=Patient will improve strength/tolerance for activity to enable patient to perform ADL's. OT Education/Plan Problem List/Assessment Assessment: Decreased Activ Tolerance, Decreased UE Strength, Impaired Funct Balance, Impaired I ADL's, Impaired Self-Care Skills Discharge Recommendations Plan/Recommendations: Continue POC Treatment Plan/Plan of Care Patient would benefit from OT for education, treatment and training to promote independence in ADL's, mobility, safety and/or upper extremity function for ADL's. Plan of Care: ADL Retraining, Functional Mobility, Group Exercise/Act as Ind, UE Funct Exercise/Act, UE Neuromus Re-Ed/Coord, W/C Management Training Treatment Duration: Jul 25, 2020 Frequency: At least 5 of 7 days/Wk (IRF) Estimated Hrs Per Day: 1.5 hours per day Rehab Potential: Fair Time/GCodes Start Time: 13:00 Stop Time: 13:15 Billed Treatment Time 1, JUAN C PATEL OT Jul 03, 2020 13:25
--- NOTE | 2020-07-03 13:54 | Physical Therapy Daily Note ---
PT Daily Note-Current Subjective Pt present upright in WC in room. Pt reports no pain and agrees to PT. Appearance After PT tx patient is supervised returning to room; pt is left upright in wheelchair with access to tray, call button, and all needs being met. Mental Status Patient Orientation: Person, Place, Time, Eyes Open, Situation Transfers SCALE: Activities may be completed with or without assistive devices. 0-Dvhfxlhpgi-zyceaqx completes the activity by him/herself with no assistance from a helper. 5-Set-up or Clean-up Assistance-helper sets up or cleans up; patient completes activity. [place] assists only prior to or following the activity. 4-Supervision or Touching Assistance-helper provides verbal cues and/or touching/steadying and/or contact guard assistance as patient completes activity. Assistance may be provided throughout the activity or intermittently. 3-Partial/Moderate Assistance-helper does LESS THAN HALF the effort. [place] lifts, holds or supports trunk or limbs, but provides less than half the effort. 2-Substantial/Maximal Assistance-helper does MORE THAN HALF the effort. [place] lifts or holds trunk or limbs and provides more than half the effort. 3-Pqohlmmgi-zsofnf does ALL the effort. Patient does none of the effort to complete the activity. Or, the assistance of 2 or more helpers is required for the patient to complete the activity. If activity was not attempted, code reason: 7-Patient Refused. 9-Not Applicable-not attempted and the patient did not perform the activity before the current illness, exacerbation or injury. 10-Not Attempted due to Environmental Limitations-(lack of equipment, weather restraints, etc.). 88-Not Attempted due to Medical Conditions or Safety Concerns. Sit to Stand (QC): 3 Wheelchair Training Does the Pt Use a Wheelchair?: Yes Wheel 50 ft with 2 turns (QC): 4 Wheel 150 ft (QC): 4 Type of Wheelchair: Manual 120' x2 Exercises Standing: Sit to Stand (SL LLE in parallel bars) Standing Reps: 8 Treatments Hbt-bo-fokgn for transfers Assessment Current Status: Fair Progress Pt cued to use armrest to push self up; pt required min assist. When patient is allowed to pull self up using parallel bars he is able to complete with CGA. Pt tried bearing weight on LLE but relied heavily on UE support on the parallel bars. PT Short Term Goals Short Term Goals Time Frame: Jul 08, 2020 Roll Left & Right: 6 Sit to lyin Lying to sitting on side of be: 6 Sit to stand: 4 Chair/rub-at-avsfl transfer: 4 PT Drum Filler Goals Drum Filler Goals PT Skilled Nursing Goals Time Frame: Jul 22, 2020 Roll Left & Right (QC): 6 Sit to Lying (QC): 6 Lying-Sitting on Side/Bed(QC): 6 Sit to Stand (QC): 5 Chair/Isb-mw-Agmjs Xfer(QC): 5 Toilet Transfer (QC): 5 Car Transfer (QC): 5 Does the Patient Walk: No and Walking Goal NOT indicated Walk 10 feet (QC): 88 Walk 50ft with 2 Turns (QC): 88 Walk 150 ft (QC): 88 Walking 10ft on Uneven Surface: 88 1 Step (curb) (QC): 88 4 Steps (QC): 88 12 Steps (QC): 88 Picking up an Object (QC): 88 Does the Pt use WC or Scooter?: No Wheel 50 feet with 2 turns (QC: 6 Type: N/A Wheel 150 feet: 6 Type: N/A PT Plan Problem List Problem List: Activity Tolerance, Functional Strength, Safety, Balance, Gait, Transfer, Bed Mobility, ROM Treatment/Plan Treatment Plan: Continue Plan of Care Treatment Plan: Bed Mobility, Education, Functional Activity Chadd, Functional Strength, Group Therapy, Gait, Safety, Therapeutic Exercise, Transfers Treatment Duration: Jul 22, 2020 Frequency: At least 5 of 7 days/Wk (IRF) Estimated Hrs Per Day: 1.5 hours per day Patient and/or Family Agrees t: Yes Safety Risks/Education Patient Education: Transfer Techniques, Correct Positioning, W/C Management, Safety Issues Teaching Recipient: Patient Teaching Methods: Demonstration, Discussion Response to Teaching: Reinforcement Needed Time/GCodes Time In: 1330 Time Out: 1350 Total Billed Treatment Time: 20 Total Billed Treatment 1 visit EX Nithin' AMELIA COSTELLO PT Jul 03, 2020 13:54
--- NOTE | 2020-07-03 14:36 | ST Dysphagia Evaluation ---
Speech Evaluation-General Medical Diagnosis CVA Onset Date: Jun 26, 2020 Therapy Diagnosis Therapy Diagnosis: Oropharyngeal Dysphagia Precautions Precautions: Aspiration Referral Referring Physician: Dr. Asher Medical History Pertinent Medical History: CVA, GERD Social History Current Living Status: Friend Speech PLF/Current-Dysphagia Prior Level of Function Patient states when he was home he was able to eat anything he wanted. Subjective Patient was cooperative with BDE. Cognitive Status Patient Orientation: Person, Place, Situation Oral Motor Skills Dentition: Natural, Tumbled, Stained Current Food Consistancy: Dysphagia Soft Ability to Follow Directions: Good Oral Expression Ability: No Impairment Voice Voice Phonatory-Based Quality: Normal Voice Pitch: Normal Voice Loudness: Normal Face Facial Symmetry: Symmetrical Oral-Facial Assessment Oral-Facial Dentition: Normal Labial Seal Description: Normal Smile: Normal Puff Cheeks: Normal Lingual Protrusion: Normal Lingual ROM: Normal Lingual Strength: Normal Pharynx Velopharyngeal Move.: Normal Volitional Dry Swallow: Yes Voluntary Cough: Yes Dysphagia Evaluation Consistencies Presented: Regular Oral phase is within normal range of function for regular consistency. Pharyngeal phase is within normal range of function for regular consistency. Dietary Recommendations: Regular Swallowing Precautions: Alternate Liquids/Solids, Decreased Bolus 1/2 Tsp, Decreased Rate of Oral Intake, Liquids from Straw, Small Bites and Sips, Sitting Upright 90 Degrees, Sitting 90 Degrees 30 Post Intake Dysphagia Evaluation Summary Patient was given trials of regular texture this date due to patient wanting to receive biscuits/bread with his meals. He is currently on a Dysphagia III. Patient demo good intake of regular texture without s/s of aspiration. Patient is recommended to be upgraded to regular texture. Recommendation provided to his nurse, Mariluz. Patient's orders will be upgraded to regular diet level. Barriers to Learning Patient's recent CVA Speech Short Term Goals Short Term Goals Short Term Goals 1) Patient will complete memory tasks related to himself/needs at 90% or greater with minimal cues. 2) Patient will complete safety awareness tasks related to himself/needs at 90% or greater with minimal cues. 3) Patient will complete problem solving tasks related to himself/needs at 90% or greater with minimal cues. 4) Patient will tolerate least restrictive diet level without s/s of aspiration. Speech Hotel Recreational Facilities Manager Goals Hotel Recreational Facilities Manager Goals Patient will improve cognitive-communication ability in order to meet his daily needs with minimal assist. Patient will maintain adequate nutrition/hydration via safe, effective swallow function. Speech-Plan Patient/Family Goals Patient/Family Goals: Patient plans on returning to his apartment where he lives with his girlfriend. Treatment Plan Speech Therapy Treatment Plan: Continue Plan of Care Treatment Duration: Jul 07, 2020 Frequency: 4 times per week (Patient will receive skilled therapy 4-5x per week) Estimated Hrs Per Day: .5 hour per day Rehab Potential: Fair Barriers to Learning: Patient's recent CVA Pt/Family Agrees to Plan: Yes Safety Risks/Education Teaching Recipient: Patient Teaching Methods: Demonstration, Discussion Response to Teaching: Verbalize Understanding, Return Demonstration Education Topics Provided: Safety of oral intake and diet level Time Speech Therapy Time In: 10:30 Speech Therapy Time Out: 11:00 Total Billed Time: 30 Billed Treatment Time 1, DYSEVS, DYST, SLTS REJI Patterson Jul 03, 2020 14:36
[2020-07-03] MEDS: ENOXAPARIN 40 MG/0.4 ML (LOVENOX) SYR SC SCH (16:46)
[2020-07-03 16:47] VITALS: BP 131/73
[2020-07-04] MEDS: HYDROcodone/APAP 5 MG/325 MG (LORTAB) TAB PO PRN ×4 (00:28→21:21)
[2020-07-04] MEDS: inSUlin ASPART (NovoLOG) 1 UNIT/0.01 ML (CHARGE PER UNIT) SC SCH ×4 (05:44→20:52)
[2020-07-04 05:52] VITALS: BP 109/64
[2020-07-04 08:10] VITALS: BP 135/77
[2020-07-04] MEDS: polyethylene glycoL POWDER 17 GM (MIRALAX) PACK PO SCH ×2 (08:49→21:07)
[2020-07-04] MEDS: CLOPIDOGREL 75 MG (PLAVIX) TABLET PO SCH (08:49)
[2020-07-04] MEDS: SENNA W/DOCUSATE (SENOKOT S) TABLET PO SCH ×2 (08:49→21:08)
[2020-07-04] MEDS: lisINopril 40 MG (PRINIVIL) TABLET PO SCH (08:49)
[2020-07-04] MEDS: PANTOPRAZOLE 40 MG (PROTONIX) TAB PO SCH (08:49)
[2020-07-04] MEDS: DOCUSATE SODIUM 100 MG (COLACE) CAP PO SCH ×2 (08:49→21:07)
[2020-07-04] MEDS: ASPIRIN E.C. 81 MG (ECOTRIN) TAB PO SCH (08:49)
--- NOTE | 2020-07-04 09:22 | Occupational Ther Daily Note ---
OT Current Status-Daily Note Subjective Pt seated in w/c, agreeable to OT. Requested shower and toileting. ADL-Treatment Therapy Code Descriptions/Definitions Functional [place] Measure: 0=Not Assessed/NA 4=Minimal Assistance 1=Total Assistance 5=Supervision or Setup 2=Maximal Assistance 6=Modified [place] 3=Moderate Assistance 7=Complete IndependenceSCALE: Activities may be completed with or without assistive devices. 0-Zcpiqkuyby-czoibhh completes the activity by him/herself with no assistance from a helper. 5-Set-up or Clean-up Assistance-helper sets up or cleans up; patient completes activity. [place] assists only prior to or following the activity. 4-Supervision or Touching Assistance-helper provides verbal cues and/or to uching/steadying and/or contact guard assistance as patient completes activity. Assistance may be provided throughout the activity or intermittently. 3-Partial/Moderate Assistance-helper does LESS THAN HALF the effort. [place] lifts, holds or supports trunk or limbs, but provides less than half the effort. 2-Substantial/Maximal Assistance-helper does MORE THAN HALF the effort. [place] lifts or holds trunk or limbs and provides more than half the effort. 2-Oefuajbwf-tqbgta does ALL the effort. Patient does none of the effort to complete the activity. Or, the assistance of 2 or more helpers is required for the patient to complete the activity. If activity was not attempted, code reason: 7-Patient Refused. 9-Not Applicable-not attempted and the patient did not perform the activity before the current illness, exacerbation or injury. 10-Not Attempted due to Environmental Limitations-(lack of equipment, weather restraints, etc.). 88-Not Attempted due to Medical Conditions or Safety Concerns. Eating (QC): 6 (Pt reports no difficulty with task.) Oral Hygiene (QC): 6 (independent at w/c.) Shower/Bathe Self (QC): 4 (Pt educated on using long handled sponge to wash LEs and back. Pt demo'd understanding. Pt able to wash all parts with SBA.) Upper Body Dressing (QC): 5 (set up) Lower Body Dressing (QC): 4 (CGA in stance for managing pants up. Pt placed RLE residual limb into w/c to assist with stabilizing self during task.) On/Off Footwear: 6 (Pt able to doff/don LLE gripper sock, increased time.) Toileting Hygiene (QC): 4 (CGA during clothing management. Pt placed RLE residual limb into w/c to stabilize self during task, and used GBs ) Toilet Transfer (QC): 4 (CGA to/from toilet using GBs.) Other Treatment Pt seated in w/c, request to use restroom. Pt self-propelled w/c into bathroom, positioning in front of toilet, cues to lock brakes. Pt transferred onto toilet, completed toileting and doffed clothes. Pt then transferred back to w/c, and maneuvered w/c in front of shower chair. Pt transferred to [place], completing shower and dressing. OT provided pt with long handled sponge to increase independence with washing LLE foot and his back. Pt demo'd understanding. After dressing, pt transferred back to w/c, then maneuvered w/c to sink to brush his teeth and wash his face independently. Pt then propelled w/c out of bathroom and into his room, donning shirt. Post OT Tx, pt seated in w/c, call light in reach and all needs met. Education OT Patient Education: Correct positioning, Modified ADL techniques, Progress toward Goal/Update tx plan, Purpose of tx/functional activities, Safety issues, Transfer techniques Teaching Recipient: Patient Teaching Methods: Discussion Response to Teaching: Verbalize Understanding OT Short Term Goals Short Term Goals Time Frame: Jul 11, 2020 Shower/bathe self: 3 Lower body dressin OT Order Puller Goals Order Puller Goals Time Frame: Jul 25, 2020 Eating (QC): 6 Oral Hygiene (QC): 6 Toileting Hygiene (QC): 6 Shower/Bathe Self (QC): 6 Upper Body Dressing (QC): 6 Lower Body Dressing (QC): 6 On/Off Footwear (QC): 6 Additional Goals: 1-Demonstrate ADL Tasks, 2-Verbalize Understanding, 3- ImproveStrength/Chadd 1=Demonstrate adherence to instructed precautions during ADL tasks. 2=Patient will verbalize/demonstrate understanding of assistive devices/modifications for ADL. 3=Patient will improve strength/tolerance for activity to enable patient to perform ADL's. OT Education/Plan Problem List/Assessment Assessment: Decreased Activ Tolerance, Decreased UE Strength, Impaired Funct Balance, Impaired I ADL's, Impaired Self-Care Skills Discharge Recommendations Plan/Recommendations: Continue POC Treatment Plan/Plan of Care Patient would benefit from OT for education, treatment and training to promote independence in ADL's, mobility, safety and/or upper extremity function for ADL's. Plan of Care: ADL Retraining, Functional Mobility, Group Exercise/Act as Ind, UE Funct Exercise/Act, UE Neuromus Re-Ed/Coord, W/C Management Training Treatment Duration: Jul 25, 2020 Frequency: At least 5 of 7 days/Wk (IRF) Estimated Hrs Per Day: 1.5 hours per day Rehab Potential: Fair Time/GCodes Start Time: 09:00 Stop Time: 10:00 Total Time Billed (hr/min): 60 Billed Treatment Time 1, ADL 4 JUAN C LOW OT Jul 04, 2020 09:21
--- NOTE | 2020-07-04 09:35 | PM&R Progress Note ---
Subjective HPI/CC On Admission Date Seen by Provider: Jul 04, 2020 Time Seen by Provider: 09:30 Subjective/Events-last exam 07/04/20: BM yesterday No issues Pain controlled No falls DC Tuesday07/03/20: BM yesterday No major issues Working with therapy well Pt settling into rehab very well No pain except for phantom pain of his right below the knee amputation BP remains stable Labs reviewed Overall feels like he is making some progress Will DC IV Conferred with RN Reviewed therapy notes Checked meds and labs Review of Systems General: Malaise Musculoskeletal: leg pain Objective Exam Vital Signs Vital Signs Date Time Temp Pulse Resp B/P (MAP) Pulse Ox O2 Delivery O2 Flow Rate FiO2 07/05/20 05:38 35.8 67 16 114/70 (85) 96 Room Air Capillary Refill : Less Than 3 Seconds General Appearance: No Apparent Distress, WD/WN, Chronically ill, Obese HEENT: PERRL/EOMI, Normal ENT Inspection, Pharynx Normal Neck: Full Range of Motion, Normal Inspection, Non Tender, Supple Respiratory: Chest Non Tender, Lungs Clear, Normal Breath Sounds, No Accessory Muscle Use, No Respiratory Distress, Other (Slight SOB from exertion ) Cardiovascular: Regular Rate, Rhythm, No Edema, No Gallop, No JVD, No Murmur Gastrointestinal: No Organomegaly, No Pulsatile Mass, Non Tender, Soft Back: Normal Inspection, No CVA Tenderness, No Vertebral Tenderness Extremity: Normal Inspection, Normal Range of Motion, Non Tender, No Calf Tenderness, No Pedal Edema, Other (right BKA) Neurologic/Psychiatric: Alert, Oriented x3, No Motor/Sensory Deficits, Normal Mood/Affect, pelt shearer II-XII Norm as Tested, Motor Weakness (left sided weakness 3/5) Reflexes: 2+ Bicep (R) (Brachioradialis); 1+ Bicep (L) (Brachioradialis ); 2+ Knee (L) Skin: Normal Color, Warm/Dry Results/Procedures Lab Patient resulted labs reviewed. FIM Transfers Therapy Code Descriptions/Definitions Functional [place] Measure: 0=Not Assessed/NA 4=Minimal Assistance 1=Total Assistance 5=Supervision or Setup 2=Maximal Assistance 6=Modified [place] 3=Moderate Assistance 7=Complete IndependenceSCALE: Activities may be completed with or without assistive devices. 9-Ufqaxuotlz-hjqqtqg completes the activity by him/herself with no assistance from a helper. 5-Set-up or Clean-up Assistance-helper sets up or cleans up; patient completes activity. [place] assists only prior to or following the activity. 4-Supervision or Touching Assistance-helper provides verbal cues and/or touching/steadying and/or contact guard assistance as patient completes activity. Assistance may be provided throughout the activity or intermittently. 3-Partial/Moderate Assistance-helper does LESS THAN HALF the effort. [place] lifts, holds or supports trunk or limbs, but provides less than half the effort. 2-Substantial/Maximal Assistance-helper does MORE THAN HALF the effort. [place] lifts or holds trunk or limbs and provides more than half the effort. 1-Oaqrugwvn-nmkbvs does ALL the effort. Patient does none of the effort to complete the activity. Or, the assistance of 2 or more helpers is required for the patient to complete the activity. If activity was not attempted, code reason: 7-Patient Refused. 9-Not Applicable-not attempted and the patient did not perform the activity before the current illness, exacerbation or injury. 10-Not Attempted due to Environmental Limitations-(lack of equipment, weather restraints, etc.). 88-Not Attempted due to Medical Conditions or Safety Concerns. Roll Left to Right (QC): 5 Sit to Lying (QC): 6 Sit to Stand (QC): 3 Chair/Vok-cp-Toupi Xfer(QC): 4 Car Transfer (QC): 3 (Used slide board) Gait Training Does the Patient Walk?: No and Walking Goal NOT indicated Walk 10 feet (QC): 88 Walk 50 ft with 2 Turns(QC): 88 Walk 150 ft (QC): 88 Walking 10ft/uneven surface-QC: 88 Wheelchair Training Does the Pt Use a Wheelchair?: Yes Distance: See PT goals Wheel 50 ft with 2 turns (QC): 4 Wheel 150 ft (QC): 4 Type of Wheelchair: Manual Stair Training 1 Step (curb) (QC): 88 4 Steps (QC): 88 12 Steps (QC): 88 Balance Picking up an Object (QC): 88 ADL-Treatment Eating (QC): 6 (Pt reports no difficulty with task.) Oral Hygiene (QC): 6 (independent at w/c.) Shower/Bathe Self (QC): 4 (Pt educated on using long handled sponge to wash LEs and back. Pt demo'd understanding. Pt able to wash all parts with SBA.) Upper Body Dressing (QC): 5 (set up) Lower Body Dressing (QC): 4 (CGA in stance for managing pants up. Pt placed RLE residual limb into w/c to assist with stabilizing self during task.) On/Off Footwear (QC): 6 (Pt able to doff/don LLE gripper sock, increased time.) Toileting Hygiene (QC): 4 (CGA during clothing management. Pt placed RLE residual limb into w/c to stabilize self during task, and used GBs ) Toilet Transfer (QC): 4 (CGA to/from toilet using GBs.) Assessment/Plan Assessment and Plan Assess & Plan/Chief Complaint Assessment: CVA w/left sided weakness Smoker Right BKA hx Chronic disability HTN HLP CRI Plan: IRF protocol Monitor BP Monitor creatinine 07/02/20: Discontinue IV Pain control Fall risk Smoking cessation 07/03/20: Phantom pain management Therapy 07/04/20: Pain controlled DC Tuesday (1) CVA (cerebral vascular accident) Qualifiers: Qualified Codes: I63.9 - Cerebral infarction, unspecified (2) Carotid stenosis Status: Chronic (3) History of CVA with residual deficit Status: Chronic (4) Amputee of extremity Status: Chronic (5) PAD (peripheral artery disease) Status: Chronic (6) Non-insulin dependent type 2 diabetes mellitus Status: Chronic (7) CKD (chronic kidney disease) Status: Chronic (8) HLD (hyperlipidemia) Status: Chronic (9) Essential (primary) hypertension Status: Chronic (10) Left-sided weakness (11) Smoker within last 12 months Status: Acute TREY MARIN DO Jul 04, 2020 09:35
--- NOTE | 2020-07-04 10:29 | Cardiology Progress Note ---
Subjective Date Seen by Provider: Jul 04, 2020 Time Seen by Provider: 10:28 Subjective/Events-last exam Patient is sitting in a wheel chair, feeling better. No new complaint Review of Systems General: No Chills, No Night Sweats, No Fatigue, No Malaise, No Appetite, No Other HEENT: No Head Aches, No Visual Changes, No Eye Pain, No Ear Pain, No Dysphasia, No Sinus Congestion, No Post Nasal Drip, No Sore Throat, No Other Pulmonary: No Dyspnea, No Cough, No Pleuritic Chest Pain, No Other Cardiovascular: No: Chest Pain, Palpitations, Orthopnea, Paroxysmal Noc. Dyspnea, Edema, Lt Headedness, Other Objective-Cardiology Exam Last Set of Vital Signs Vital Signs 07/04/20 05:52 Temp 35.4 Pulse 79 Resp 16 B/P (MAP) 109/64 (79) Pulse Ox 96 O2 Delivery Room Air Capillary Refill : Less Than 3 Seconds I&O Intake and Output 07/04/20 00:00 Intake Total 1700 ml Output Total 2950 ml Balance -1250 ml Intake Oral 1700 ml Output Urine Total 2950 ml # Bowel Movements 1 General: Alert, Oriented X3, Cooperative HEENT: Atraumatic, PERRLA Neck: Supple, No JVD, No Thyromegaly Lungs: Clear to Auscultation, Normal Air Movement Heart: Regular Rate, Normal S1, Normal S2, No Murmurs Abdomen: Normal Bowel Sounds, Soft, No Tenderness, No Hepatosplenomegaly, No Masses Extremities: No Clubbing, No Cyanosis, No Tenderness/Swelling, Other (right BKA) Skin: No Rashes, No Significant Lesion Neuro: Cranial Nerves 3-12 NL Psych/Mental Status: Mental Status NL, Mood NL A/P-Cardiology Admission Diagnosis CVA HTN HLP DM Assessment/Plan Status post Acute CVA, had a similar episode in May 2015 with unknown source, was on aspirin and Plavix. Patient had questionable patent foramen ovale with [id number] shunt in 2014. Repeat echo showed mildly enlarged left atrium with mild pulmonary hypertension. Continue on aspirin. Severe right carotid stenosis, will need vascular evaluation in the future Status post loop implant, continue to monitor Hypertension, controlled, continue to monitor response and tolerance to current medication. Hyperlipidemia, well controlled, on Lipitor 40 mg daily. Continue to monitor Tobaccoism, patient has stopped smoking in 2017, encouraged to continue with smoking cessation Right BKA, patient reported that he had a blood clot and sudden cold foot, possible embolization. It could be related to the patent foramen ovale or occult arrhythmia Diabetes mellitus, followed and managed by primary care physician Obesity, questionable underlying sleep apnea Clinical Quality Measures DVT/VTE Risk/Contraindication: Risk Factor Score Per Nursin RFS Level Per Nursing on Admit: 4+=Very High MATY ROBERTSON MD Jul 04, 2020 10:29 am
--- NOTE | 2020-07-04 11:42 | Speech Therapy Daily Note ---
Speech Daily Progress Note Subjective Date Seen by Provider: Jul 04, 2020 Time Seen by Provider: 00:30 Patient was up in wheelchair gathering his clothing for his OT session when I entered his room. Objective Patient completed a series of safety awareness "what's wrong with this picture?" at 90% without cues. Assessment Assessment Current Status: Good Progress Treatment Plan Continue Plan of Care Speech Short Term Goals Short Term Goals Short Term Goals 1) Patient will complete memory tasks related to himself/needs at 90% or greater with minimal cues. 2) Patient will complete safety awareness tasks related to himself/needs at 90% or greater with minimal cues. 3) Patient will complete problem solving tasks related to himself/needs at 90% or greater with minimal cues. 4) Patient will tolerate least restrictive diet level without s/s of aspiration. Speech Jail Goals Warehouse Lead Goals Patient will improve cognitive-communication ability in order to meet his daily needs with minimal assist. Patient will maintain adequate nutrition/hydration via safe, effective swallow function. Speech-Plan Patient/Family Goals Patient/Family Goals: Patient is scheduled to return home Tuesday to his apartment where he lives with his girflfriend. Treatment Plan Speech Therapy Treatment Plan: Continue Plan of Care Treatment Duration: Jul 07, 2020 Frequency: 4 times per week (Patient will receive skilled therapy 4-5x per week) Estimated Hrs Per Day: .5 hour per day Rehab Potential: Fair Barriers to Learning: Patient's recent CVA and medical history Pt/Family Agrees to Plan: Yes Safety Risks/Education Teaching Recipient: Patient Teaching Methods: Demonstration, Discussion Response to Teaching: Verbalize Understanding, Return Demonstration Education Topics Provided: Continued safety upon his return home Time Speech Therapy Time In: 08:30 Speech Therapy Time Out: 09:00 Total Billed Time: 30 Billed Treatment Time 1PELON BETH[address] ST Jul 04, 2020 11:42
--- NOTE | 2020-07-04 11:58 | Physical Therapy Daily Note ---
PT Daily Note-Current Subjective Pt presents to therapy sitting upright in room. Pt agrees to PT. Pt reports no pain. Appearance At conclusion of PT tx, pt is left sitting upright in wheelchair with access to tray, call button, and all needs have been met. Mental Status Patient Orientation: Person, Place, Time, Eyes Open, Situation Transfers SCALE: Activities may be completed with or without assistive devices. 7-Otkdnhfazn-fpwqopu completes the activity by him/herself with no assistance from a helper. 5-Set-up or Clean-up Assistance-helper sets up or cleans up; patient completes activity. [place] assists only prior to or following the activity. 4-Supervision or Touching Assistance-helper provides verbal cues and/or touching/steadying and/or contact guard assistance as patient completes activity. Assistance may be provided throughout the activity or intermittently. 3-Partial/Moderate Assistance-helper does LESS THAN HALF the effort. [place] lifts, holds or supports trunk or limbs, but provides less than half the effort. 2-Substantial/Maximal Assistance-helper does MORE THAN HALF the effort. [place] lifts or holds trunk or limbs and provides more than half the effort. 9-Peefmhcca-qzlakc does ALL the effort. Patient does none of the effort to complete the activity. Or, the assistance of 2 or more helpers is required for the patient to complete the activity. If activity was not attempted, code reason: 7-Patient Refused. 9-Not Applicable-not attempted and the patient did not perform the activity before the current illness, exacerbation or injury. 10-Not Attempted due to Environmental Limitations-(lack of equipment, weather restraints, etc.). 88-Not Attempted due to Medical Conditions or Safety Concerns. Sit to Stand (QC): 4 Wheelchair Training Does the Pt Use a Wheelchair?: Yes Wheel 50 ft with 2 turns (QC): 4 Wheel 150 ft (QC): 4 Type of Wheelchair: Manual Exercises Seated Therapy Exercises: Sit to stand (in parallel bars) Seated Reps: 15 Standing: Heel/toe raises (Heel raises) Standing Reps: 20 NuStep Minutes: 15 NuStep Workload: 4 Treatments LE strengthening Assessment Current Status: Good Progress Pt continues to transfer is an untraditional manner; pt does reports using his residual limb for pivot assist and is limited weightbearing through it with sit to stand during the transfer. Pt has improved endurance in jnd-cz-zkjos inside parallel bars. Pt instructed in standing heels raise to progress pivoting on LLE. PT Short Term Goals Short Term Goals Time Frame: Jul 08, 2020 Roll Left & Right: 6 Sit to lyin Lying to sitting on side of be: 6 Sit to stand: 4 Chair/ctl-om-npbfj transfer: 4 PT Half-Way Goals Heating Unit Mechanic Goals PT Heating Unit Mechanic Goals Time Frame: Jul 22, 2020 Roll Left & Right (QC): 6 Sit to Lying (QC): 6 Lying-Sitting on Side/Bed(QC): 6 Sit to Stand (QC): 5 Chair/Ifg-hj-Gfpxk Xfer(QC): 5 Toilet Transfer (QC): 5 Car Transfer (QC): 5 Does the Patient Walk: No and Walking Goal NOT indicated Walk 10 feet (QC): 88 Walk 50ft with 2 Turns (QC): 88 Walk 150 ft (QC): 88 Walking 10ft on Uneven Surface: 88 1 Step (curb) (QC): 88 4 Steps (QC): 88 12 Steps (QC): 88 Picking up an Object (QC): 88 Does the Pt use WC or Scooter?: No Wheel 50 feet with 2 turns (QC: 6 Type: N/A Wheel 150 feet: 6 Type: N/A PT Plan Problem List Problem List: Activity Tolerance, Functional Strength, Safety, Balance, Gait, Transfer, Bed Mobility, ROM Treatment/Plan Treatment Plan: Continue Plan of Care Treatment Plan: Bed Mobility, Education, Functional Activity Chadd, Functional Strength, Group Therapy, Gait, Safety, Therapeutic Exercise, Transfers Treatment Duration: Jul 22, 2020 Frequency: At least 5 of 7 days/Wk (IRF) Estimated Hrs Per Day: 1.5 hours per day Patient and/or Family Agrees t: Yes Safety Risks/Education Patient Education: Transfer Techniques, Correct Positioning, W/C Management, Safety Issues Teaching Recipient: Patient Teaching Methods: Demonstration, Discussion Response to Teaching: Reinforcement Needed Time/GCodes Time In: 1100 Time Out: 1200 Total Billed Treatment Time: 60 Total Billed Treatment 1 visit EX 40' FA 20' AMELIA COSTELLO PT Jul 04, 2020 11:58
--- NOTE | 2020-07-04 14:37 | Therapy Group Daily Note ---
Therapy Daily Group Note Patient Education Topic Exercises, Other List Below (bed mobility, transfer skills, ARU description) Exercises LE Seated Exercise, UE Exercise Session Ratio (pt:therapist): 4:1 Goal of Session: Education on ARU Expectations, UE/LE Strengthing, Safety with Transfers Goal Met for this Session: Yes Pt Benefit of Group: Contributions to Others, Increased Functional Safety, Increased Functional Strength, Improved Cognition, Recognition of Peers, Socialization Other/Notes Pt transported via w/c to OT/PT group in [facility]. Group consisted of introductions (name, place living, best advice given), socialization, seated UE/LE exercises, educational topics of ARU description/bed mobility and transfers. Pt introduced self appropriately and actively listened to peers. Pt acknowledged understanding of educational topics by contributing to group discussions and given personal strategies. Pt held peer to peer conversations and was able to give positive affirmations about self and peers. After group, pt lying in bed with call light/phone in reach. All needs met in room. Start Time: 13:00 Stop Time: 14:15 Total Billed Treatment Time: 75 Total Billed Treatment 1-NIKKI LAIRD Jul 04, 2020 14:37
[2020-07-04 16:00] VITALS: BP 123/63
[2020-07-04] MEDS: ENOXAPARIN 40 MG/0.4 ML (LOVENOX) SYR SC SCH (17:43)
[2020-07-04] MEDS: guaiFENesin/CODEINE (ROBITUSSIN AC) 10ML UDC PO PRN (17:57)
[2020-07-05] MEDS: HYDROcodone/APAP 5 MG/325 MG (LORTAB) TAB PO PRN ×4 (01:36→19:31)
[2020-07-05] MEDS: inSUlin ASPART (NovoLOG) 1 UNIT/0.01 ML (CHARGE PER UNIT) SC SCH ×4 (05:31→20:15)
[2020-07-05 05:38] VITALS: BP 114/70
[2020-07-05] MEDS: lisINopril 40 MG (PRINIVIL) TABLET PO SCH (08:42)
[2020-07-05] MEDS: SENNA W/DOCUSATE (SENOKOT S) TABLET PO SCH ×2 (08:42→20:36)
[2020-07-05] MEDS: ASPIRIN E.C. 81 MG (ECOTRIN) TAB PO SCH (08:42)
[2020-07-05] MEDS: CLOPIDOGREL 75 MG (PLAVIX) TABLET PO SCH (08:43)
[2020-07-05] MEDS: polyethylene glycoL POWDER 17 GM (MIRALAX) PACK PO SCH ×2 (08:43→20:36)
[2020-07-05] MEDS: PANTOPRAZOLE 40 MG (PROTONIX) TAB PO SCH (08:43)
[2020-07-05] MEDS: DOCUSATE SODIUM 100 MG (COLACE) CAP PO SCH ×2 (08:43→20:36)
--- NOTE | 2020-07-05 10:22 | Cardiology Progress Note ---
Subjective Date Seen by Provider: Jul 05, 2020 Time Seen by Provider: 10:21 Subjective/Events-last exam Patient is sitting in a wheel chair, feeling better. No new complaint Review of Systems General: No Chills, No Night Sweats, No Fatigue, No Malaise, No Appetite, No Other HEENT: No Head Aches, No Visual Changes, No Eye Pain, No Ear Pain, No Dysphasia, No Sinus Congestion, No Post Nasal Drip, No Sore Throat, No Other Pulmonary: No Dyspnea, No Cough, No Pleuritic Chest Pain, No Other Cardiovascular: No: Chest Pain, Palpitations, Orthopnea, Paroxysmal Noc. Dyspnea, Edema, Lt Headedness, Other Objective-Cardiology Exam Last Set of Vital Signs Vital Signs 07/05/20 05:38 Temp 35.8 Pulse 67 Resp 16 B/P (MAP) 114/70 (85) Pulse Ox 96 O2 Delivery Room Air Capillary Refill : Less Than 3 Seconds I&O Intake and Output 07/05/20 00:00 Intake Total 2110 ml Output Total 2610 ml Balance -500 ml Intake Oral 2110 ml Output Urine Total 2610 ml # Bowel Movements 2 General: Alert, Oriented X3, Cooperative HEENT: Atraumatic, PERRLA Neck: Supple, No JVD, No Thyromegaly Lungs: Clear to Auscultation, Normal Air Movement Heart: Regular Rate, Normal S1, Normal S2, No Murmurs Abdomen: Normal Bowel Sounds, Soft, No Tenderness, No Hepatosplenomegaly, No Masses Extremities: No Clubbing, No Cyanosis, No Tenderness/Swelling, Other (right BKA) Skin: No Rashes, No Significant Lesion Neuro: Cranial Nerves 3-12 NL Psych/Mental Status: Mental Status NL, Mood NL A/P-Cardiology Admission Diagnosis CVA HTN HLP DM Assessment/Plan Status post Acute CVA, had a similar episode in May 2015 with unknown source, was on aspirin and Plavix. Patient had questionable patent foramen ovale with [id number] shunt in 2014. Repeat echo showed mildly enlarged left atrium with mild pulmonary hypertension. Continue on aspirin. Severe right carotid stenosis, will need vascular evaluation in the future Status post loop implant, continue to monitor Hypertension, controlled, continue to monitor response and tolerance to current medication. Hyperlipidemia, well controlled, on Lipitor 40 mg daily. Continue to monitor Tobaccoism, patient has stopped smoking in 2017, encouraged to continue with smoking cessation Right BKA, patient reported that he had a blood clot and sudden cold foot, possible embolization. It could be related to the patent foramen ovale or occult arrhythmia Diabetes mellitus, followed and managed by primary care physician Obesity, questionable underlying sleep apnea Clinical Quality Measures DVT/VTE Risk/Contraindication: Risk Factor Score Per Nursin RFS Level Per Nursing on Admit: 4+=Very High MATY ROBERTSON MD Jul 05, 2020 10:22
--- NOTE | 2020-07-05 10:53 | Physical Therapy Daily Note ---
PT Daily Note-Current Subjective Pt sitting in [facility] in room upon arrival. Pt agrees to PT. Pain Location: No Pain Reported Mental Status Patient Orientation: Person, Place, Situation Transfers SCALE: Activities may be completed with or without assistive devices. 5-Aawuvtpqtm-qxnzoav completes the activity by him/herself with no assistance from a helper. 5-Set-up or Clean-up Assistance-helper sets up or cleans up; patient completes activity. [place] assists only prior to or following the activity. 4-Supervision or Touching Assistance-helper provides verbal cues and/or touching/steadying and/or contact guard assistance as patient completes activity. Assistance may be provided throughout the activity or intermittently. 3-Partial/Moderate Assistance-helper does LESS THAN HALF the effort. [place] lifts, holds or supports trunk or limbs, but provides less than half the effort. 2-Substantial/Maximal Assistance-helper does MORE THAN HALF the effort. [place] lifts or holds trunk or limbs and provides more than half the effort. 5-Iqnbaenby-ixvbwq does ALL the effort. Patient does none of the effort to complete the activity. Or, the assistance of 2 or more helpers is required for the patient to complete the activity. If activity was not attempted, code reason: 7-Patient Refused. 9-Not Applicable-not attempted and the patient did not perform the activity before the current illness, exacerbation or injury. 10-Not Attempted due to Environmental Limitations-(lack of equipment, weather restraints, etc.). 88-Not Attempted due to Medical Conditions or Safety Concerns. Sit to Stand (QC): 5 Weight Bearing Full Weight Bearing Wheelchair Training Does the Pt Use a Wheelchair?: Yes Wheel 50 ft with 2 turns (QC): 6 Wheel 150 ft (QC): 6 Type of Wheelchair: Manual Exercises Standing: Heel/toe raises, Sit to Stand Standing Reps: 15 Treatments [facility] in hallway & to Therapy Gym. Pt completes sit to stands as well as Heel/Toe raises, taking RB after 5 reps Assessment Current Status: Good Progress Pt radha. tx well. PT Short Term Goals Short Term Goals Time Frame: Jul 08, 2020 Roll Left & Right: 6 Sit to lyin Lying to sitting on side of be: 6 Sit to stand: 4 Chair/vam-uh-hkpgs transfer: 4 PT Senior Care Goals [employer] Architect Goals PT Senior Care Goals Time Frame: Jul 22, 2020 Roll Left & Right (QC): 6 Sit to Lying (QC): 6 Lying-Sitting on Side/Bed(QC): 6 Sit to Stand (QC): 5 Chair/Nvx-wl-Zqdud Xfer(QC): 5 Toilet Transfer (QC): 5 Car Transfer (QC): 5 Does the Patient Walk: No and Walking Goal NOT indicated Walk 10 feet (QC): 88 Walk 50ft with 2 Turns (QC): 88 Walk 150 ft (QC): 88 Walking 10ft on Uneven Surface: 88 1 Step (curb) (QC): 88 4 Steps (QC): 88 12 Steps (QC): 88 Picking up an Object (QC): 88 Does the Pt use WC or Scooter?: No Wheel 50 feet with 2 turns (QC: 6 Type: N/A Wheel 150 feet: 6 Type: N/A PT Plan Problem List Problem List: Activity Tolerance Treatment/Plan Treatment Plan: Continue Plan of Care Treatment Plan: Bed Mobility, Education, Functional Activity Chadd, Functional Strength, Group Therapy, Gait, Safety, Therapeutic Exercise, Transfers Treatment Duration: Jul 22, 2020 Frequency: At least 5 of 7 days/Wk (IRF) Estimated Hrs Per Day: 1.5 hours per day Patient and/or Family Agrees t: Yes Safety Risks/Education Patient Education: Correct Positioning, Safety Issues Teaching Recipient: Patient Teaching Methods: Discussion Response to Teaching: Verbalize Understanding Time/GCodes Time In: 930 Time Out: 950 Total Billed Treatment Time: 20 Total Billed Treatment 1, EX (20m) RICCO CARLSON PTA Jul 05, 2020 10:53
--- NOTE | 2020-07-05 12:14 | PM&R Progress Note ---
Subjective HPI/CC On Admission Date Seen by Provider: Jul 05, 2020 Time Seen by Provider: 12:15 Subjective/Events-last exam 07/05/20: Patient doing well No falls Pain controlled 07/04/20: BM yesterday No issues Pain controlled No falls DC Tuesday07/03/20: BM yesterday No major issues Working with therapy well Pt settling into rehab very well No pain except for phantom pain of his right below the knee amputation BP remains stable Labs reviewed Overall feels like he is making some progress Will DC IV Conferred with RN Reviewed therapy notes Checked meds and labs Review of Systems Musculoskeletal: leg pain Objective Exam Vital Signs Vital Signs Date Time Temp Pulse Resp B/P (MAP) Pulse Ox O2 Delivery O2 Flow Rate FiO2 07/05/20 18:00 36.2 91 16 115/78 (90) 95 Room Air Capillary Refill : Less Than 3 Seconds General Appearance: No Apparent Distress, WD/WN, Chronically ill, Obese HEENT: PERRL/EOMI, Normal ENT Inspection, Pharynx Normal Neck: Full Range of Motion, Normal Inspection, Non Tender, Supple Respiratory: Chest Non Tender, Lungs Clear, Normal Breath Sounds, No Accessory Muscle Use, No Respiratory Distress, Other (Slight SOB from exertion ) Cardiovascular: Regular Rate, Rhythm, No Edema, No Gallop, No JVD, No Murmur Gastrointestinal: No Organomegaly, No Pulsatile Mass, Non Tender, Soft Back: Normal Inspection, No CVA Tenderness, No Vertebral Tenderness Extremity: Normal Inspection, Normal Range of Motion, Non Tender, No Calf Tenderness, No Pedal Edema, Other (right BKA) Neurologic/Psychiatric: Alert, Oriented x3, No Motor/Sensory Deficits, Normal Mood/Affect, chronometer repairer II-XII Norm as Tested, Motor Weakness (left sided weakness 3/5) Reflexes: 2+ Bicep (R) (Brachioradialis); 1+ Bicep (L) (Brachioradialis ); 2+ Knee (L) Skin: Normal Color, Warm/Dry Results/Procedures Lab Patient resulted labs reviewed. FIM Transfers Therapy Code Descriptions/Definitions Functional [place] Measure: 0=Not Assessed/NA 4=Minimal Assistance 1=Total Assistance 5=Supervision or Setup 2=Maximal Assistance 6=Modified [place] 3=Moderate Assistance 7=Complete IndependenceSCALE: Activities may be completed with or without assistive devices. 1-Ywjpwtucan-jubsmlp completes the activity by him/herself with no assistance from a helper. 5-Set-up or Clean-up Assistance-helper sets up or cleans up; patient completes activity. [place] assists only prior to or following the activity. 4-Supervision or Touching Assistance-helper provides verbal cues and/or touchin g/steadying and/or contact guard assistance as patient completes activity. Assistance may be provided throughout the activity or intermittently. 3-Partial/Moderate Assistance-helper does LESS THAN HALF the effort. [place] lifts, holds or supports trunk or limbs, but provides less than half the effort. 2-Substantial/Maximal Assistance-helper does MORE THAN HALF the effort. [place] lifts or holds trunk or limbs and provides more than half the effort. 0-Vwfvtrfsk-vztffd does ALL the effort. Patient does none of the effort to complete the activity. Or, the assistance of 2 or more helpers is required for the patient to complete the activity. If activity was not attempted, code reason: 7-Patient Refused. 9-Not Applicable-not attempted and the patient did not perform the activity before the current illness, exacerbation or injury. 10-Not Attempted due to Environmental Limitations-(lack of equipment, weather restraints, etc.). 88-Not Attempted due to Medical Conditions or Safety Concerns. Roll Left to Right (QC): 5 Sit to Lying (QC): 6 Sit to Stand (QC): 5 Chair/Osg-fp-Pwmtb Xfer(QC): 4 Car Transfer (QC): 3 (Used slide board) Gait Training Does the Patient Walk?: No and Walking Goal NOT indicated Walk 10 feet (QC): 88 Walk 50 ft with 2 Turns(QC): 88 Walk 150 ft (QC): 88 Walking 10ft/uneven surface-QC: 88 Wheelchair Training Does the Pt Use a Wheelchair?: Yes Distance: See PT goals Wheel 50 ft with 2 turns (QC): 6 Wheel 150 ft (QC): 6 Type of Wheelchair: Manual Stair Training 1 Step (curb) (QC): 88 4 Steps (QC): 88 12 Steps (QC): 88 Balance Picking up an Object (QC): 88 ADL-Treatment Eating (QC): 6 (Pt reports no difficulty with task.) Oral Hygiene (QC): 6 (independent at w/c.) Shower/Bathe Self (QC): 4 (Pt educated on using long handled sponge to wash LEs and back. Pt demo'd understanding. Pt able to wash all parts with SBA.) Upper Body Dressing (QC): 5 (set up) Lower Body Dressing (QC): 4 (CGA in stance for managing pants up. Pt placed RLE residual limb into w/c to assist with stabilizing self during task.) On/Off Footwear (QC): 6 (Pt able to doff/don LLE gripper sock, increased time.) Toileting Hygiene (QC): 4 (CGA during clothing management. Pt placed RLE residual limb into w/c to stabilize self during task, and used GBs ) Toilet Transfer (QC): 4 (CGA to/from toilet using GBs.) Assessment/Plan Assessment and Plan Assess & Plan/Chief Complaint Assessment: CVA w/left sided weakness Smoker Right BKA hx Chronic disability HTN HLP CRI Plan: IRF protocol Monitor BP Monitor creatinine 07/02/20: Discontinue IV Pain control Fall risk Smoking cessation 07/03/20: Phantom pain management Therapy 07/04/20: Pain controlled DC Tuesday07/05/20: Pain control Wheelchair order placed (1) CVA (cerebral vascular accident) Qualifiers: Qualified Codes: I63.9 - Cerebral infarction, unspecified (2) Carotid stenosis Status: Chronic (3) History of CVA with residual deficit Status: Chronic (4) Amputee of extremity Status: Chronic (5) PAD (peripheral artery disease) Status: Chronic (6) Non-insulin dependent type 2 diabetes mellitus Status: Chronic (7) CKD (chronic kidney disease) Status: Chronic (8) HLD (hyperlipidemia) Status: Chronic (9) Essential (primary) hypertension Status: Chronic (10) Left-sided weakness (11) Smoker within last 12 months Status: Acute TREY MARIN DO Jul 05, 2020 12:14
[2020-07-05] MEDS: ENOXAPARIN 40 MG/0.4 ML (LOVENOX) SYR SC SCH (16:04)
[2020-07-05] MEDS: guaiFENesin/CODEINE (ROBITUSSIN AC) 10ML UDC PO PRN (17:10)
[2020-07-05 18:00] VITALS: BP 115/78
[2020-07-06] MEDS: HYDROcodone/APAP 5 MG/325 MG (LORTAB) TAB PO PRN ×5 (01:01→20:32)
[2020-07-06] MEDS: inSUlin ASPART (NovoLOG) 1 UNIT/0.01 ML (CHARGE PER UNIT) SC SCH ×4 (05:09→20:30)
[2020-07-06 05:49] VITALS: BP 131/72
[2020-07-06] MEDS: ASPIRIN E.C. 81 MG (ECOTRIN) TAB PO SCH (09:10)
[2020-07-06] MEDS: PANTOPRAZOLE 40 MG (PROTONIX) TAB PO SCH (09:10)
[2020-07-06] MEDS: polyethylene glycoL POWDER 17 GM (MIRALAX) PACK PO SCH ×2 (09:10→20:30)
[2020-07-06] MEDS: CLOPIDOGREL 75 MG (PLAVIX) TABLET PO SCH (09:10)
[2020-07-06] MEDS: lisINopril 40 MG (PRINIVIL) TABLET PO SCH (09:10)
[2020-07-06] MEDS: SENNA W/DOCUSATE (SENOKOT S) TABLET PO SCH ×2 (09:10→20:30)
[2020-07-06] MEDS: DOCUSATE SODIUM 100 MG (COLACE) CAP PO SCH ×2 (09:10→20:30)
[2020-07-06 09:11] VITALS: BP 137/86
--- NOTE | 2020-07-06 11:38 | Cardiology Progress Note ---
Subjective Date Seen by Provider: Jul 06, 2020 Time Seen by Provider: 11:37 Subjective/Events-last exam Patient is sitting in a wheelchair. No new complaint, feeling better Review of Systems General: No Chills, No Night Sweats, No Fatigue, No Malaise, No Appetite, No Other HEENT: No Head Aches, No Visual Changes, No Eye Pain, No Ear Pain, No Dysphasia, No Sinus Congestion, No Post Nasal Drip, No Sore Throat, No Other Pulmonary: No Dyspnea, No Cough, No Pleuritic Chest Pain, No Other Cardiovascular: No: Chest Pain, Palpitations, Orthopnea, Paroxysmal Noc. Dyspnea, Edema, Lt Headedness, Other Objective-Cardiology Exam Last Set of Vital Signs Vital Signs 07/06/20 07/06/20 07/06/20 05:49 09:11 10:09 Temp 36.0 Pulse 82 Resp 18 B/P (MAP) 137/86 (103) Pulse Ox 97 O2 Delivery Room Air Capillary Refill : Less Than 3 Seconds I&O Intake and Output 07/06/20 00:00 Intake Total 2130 ml Output Total 2800 ml Balance -670 ml Intake Oral 2130 ml Output Urine Total 2800 ml # Bowel Movements 3 General: Alert, Oriented X3, Cooperative HEENT: Atraumatic, PERRLA Neck: Supple, No JVD, No Thyromegaly Lungs: Clear to Auscultation, Normal Air Movement Heart: Regular Rate, Normal S1, Normal S2, No Murmurs Abdomen: Normal Bowel Sounds, Soft, No Tenderness, No Hepatosplenomegaly, No Masses Extremities: No Clubbing, No Cyanosis, No Tenderness/Swelling, Other (right BKA) Skin: No Rashes, No Significant Lesion Neuro: Normal Speech, Cranial Nerves 3-12 NL Psych/Mental Status: Mental Status NL, Mood NL A/P-Cardiology Admission Diagnosis CVA HTN HLP DM Assessment/Plan Status post Acute CVA, had a similar episode in May 2015 with unknown source, was on aspirin and Plavix. Patient had questionable patent foramen ovale with hcup-qq-wwehs shunt in 2014. Repeat echo showed mildly enlarged left atrium with mild pulmonary hypertension. Continue on aspirin. Severe right carotid stenosis, will need vascular evaluation in the future Status post loop implant, continue to monitor Hypertension, controlled, continue to monitor response and tolerance to current medication. Hyperlipidemia, well controlled, on Lipitor 40 mg daily. Continue to monitor Tobaccoism, patient has stopped smoking in 2017, encouraged to continue with smoking cessation Right BKA, patient reported that he had a blood clot and sudden cold foot, possible embolization. It could be related to the patent foramen ovale or occult arrhythmia Diabetes mellitus, followed and managed by primary care physician Obesity, questionable underlying sleep apnea Clinical Quality Measures DVT/VTE Risk/Contraindication: Risk Factor Score Per Nursin RFS Level Per Nursing on Admit: 4+=Very High MATY ROBERTSON MD Jul 06, 2020 11:38 am
--- NOTE | 2020-07-06 12:04 | PM&R Progress Note ---
Subjective HPI/CC On Admission Date Seen by Provider: Jul 06, 2020 Time Seen by Provider: 12:15 Subjective/Events-last exam 07/06/20: BM yesterday DC [facility] 07[facility]05/20: Patient doing well No falls Pain controlled 07/04/20: BM yesterday No issues Pain controlled No falls DC Tuesday07/03/20: BM yesterday No major issues Working with therapy well Pt settling into rehab very well No pain except for phantom pain of his right below the knee amputation BP remains stable Labs reviewed Overall feels like he is making some progress Will DC IV Conferred with RN Reviewed therapy notes Checked meds and labs Review of Systems General: Fatigue Musculoskeletal: leg pain Objective Exam Vital Signs Vital Signs Date Time Temp Pulse Resp B/P (MAP) Pulse Ox O2 Delivery O2 Flow Rate FiO2 07/06/20 10:09 Room Air 07/06/20 09:11 82 18 137/86 (103) 97 07/06/20 05:49 36.0 Capillary Refill : Less Than 3 Seconds General Appearance: No Apparent Distress, WD/WN, Chronically ill, Obese HEENT: PERRL/EOMI, Normal ENT Inspection, Pharynx Normal Neck: Full Range of Motion, Normal Inspection, Non Tender, Supple Respiratory: Chest Non Tender, Lungs Clear, Normal Breath Sounds, No Accessory Muscle Use, No Respiratory Distress, Other (Slight SOB from exertion ) Cardiovascular: Regular Rate, Rhythm, No Edema, No Gallop, No JVD, No Murmur Gastrointestinal: No Organomegaly, No Pulsatile Mass, Non Tender, Soft Back: Normal Inspection, No CVA Tenderness, No Vertebral Tenderness Extremity: Normal Inspection, Normal Range of Motion, Non Tender, No Calf Tenderness, No Pedal Edema, Other (right BKA) Neurologic/Psychiatric: Alert, Oriented x3, No Motor/Sensory Deficits, Normal Mood/Affect, geriatric nurse practitioner II-XII Norm as Tested, Motor Weakness (left sided weakness 3/5) Reflexes: 2+ Bicep (R) (Brachioradialis); 1+ Bicep (L) (Brachioradialis ); 2+ Knee (L) Skin: Normal Color, Warm/Dry Results/Procedures Lab Patient resulted labs reviewed. FIM Transfers Therapy Code Descriptions/Definitions Functional [place] Measure: 0=Not Assessed/NA 4=Minimal Assistance 1=Total Assistance 5=Supervision or Setup 2=Maximal Assistance 6=Modified [place] 3=Moderate Assistance 7=Complete IndependenceSCALE: Activities may be completed with or without assistive devices. 7-Efqejneedx-pccfdnz completes the activity by him/herself with no assistance from a helper. 5-Set-up or Clean-up Assistance-helper sets up or cleans up; patient completes activity. [place] assists only prior to or following the activity. 4-Supervision or Touching Assistance-helper provides verbal cues and/or touching/steadying and/or contact guard assistance as patient completes activity. Assistance may be provided throughout the activity or intermittently. 3-Partial/Moderate Assistance-helper does LESS THAN HALF the effort. [place] lifts, holds or supports trunk or limbs, but provides less than half the effort. 2-Substantial/Maximal Assistance-helper does MORE THAN HALF the effort. [place] lifts or holds trunk or limbs and provides more than half the effort. 0-Tfzwvjgfv-nndhiz does ALL the effort. Patient does none of the effort to complete the activity. Or, the assistance of 2 or more helpers is required for the patient to complete the activity. If activity was not attempted, code reason: 7-Patient Refused. 9-Not Applicable-not attempted and the patient did not perform the activity before the current illness, exacerbation or injury. 10-Not Attempted due to Environmental Limitations-(lack of equipment, weather restraints, etc.). 88-Not Attempted due to Medical Conditions or Safety Concerns. Roll Left to Right (QC): 5 Sit to Lying (QC): 6 Sit to Stand (QC): 5 Chair/Fyd-co-Cmxvb Xfer(QC): 4 Car Transfer (QC): 3 (Used slide board) Gait Training Does the Patient Walk?: No and Walking Goal NOT indicated Walk 10 feet (QC): 88 Walk 50 ft with 2 Turns(QC): 88 Walk 150 ft (QC): 88 Walking 10ft/uneven surface-QC: 88 Wheelchair Training Does the Pt Use a Wheelchair?: Yes Distance: See PT goals Wheel 50 ft with 2 turns (QC): 6 Wheel 150 ft (QC): 6 Type of Wheelchair: Manual Stair Training 1 Step (curb) (QC): 88 4 Steps (QC): 88 12 Steps (QC): 88 Balance Picking up an Object (QC): 88 ADL-Treatment Eating (QC): 6 (Pt reports no difficulty with task.) Oral Hygiene (QC): 6 (independent at w/c.) Shower/Bathe Self (QC): 4 (Pt educated on using long handled sponge to wash LEs and back. Pt demo'd understanding. Pt able to wash all parts with SBA.) Upper Body Dressing (QC): 5 (set up) Lower Body Dressing (QC): 4 (CGA in stance for managing pants up. Pt placed RLE residual limb into w/c to assist with stabilizing self during task.) On/Off Footwear (QC): 6 (Pt able to doff/don LLE gripper sock, increased time.) Toileting Hygiene (QC): 4 (CGA during clothing management. Pt placed RLE residual limb into w/c to stabilize self during task, and used GBs ) Toilet Transfer (QC): 4 (CGA to/from toilet using GBs.) Assessment/Plan Assessment and Plan Assess & Plan/Chief Complaint Assessment: CVA w/left sided weakness Smoker Right BKA hx Chronic disability HTN HLP CRI Plan: IRF protocol Monitor BP Monitor creatinine 07/02/20: Discontinue IV Pain control Fall risk Smoking cessation 07/03/20: Phantom pain management Therapy 07/04/20: Pain controlled DC Tuesday07/05/20: Pain control Wheelchair order placed 07/06/20: DC tomorrow (1) CVA (cerebral vascular accident) Qualifiers: Qualified Codes: I63.9 - Cerebral infarction, unspecified (2) Carotid stenosis Status: Chronic (3) History of CVA with residual deficit Status: Chronic (4) Amputee of extremity Status: Chronic (5) PAD (peripheral artery disease) Status: Chronic (6) Non-insulin dependent type 2 diabetes mellitus Status: Chronic (7) CKD (chronic kidney disease) Status: Chronic (8) HLD (hyperlipidemia) Status: Chronic (9) Essential (primary) hypertension Status: Chronic (10) Left-sided weakness (11) Smoker within last 12 months Status: Acute TREY MARIN DO Jul 06, 2020 12:04
[2020-07-06] MEDS ORDERED: PANT40TA52 PO (12:51)
[2020-07-06] MEDS ORDERED: ACHD5005 PO (12:51)
--- NOTE | 2020-07-06 12:52 | D/C HH Face to Face Order ---
D/C Face to Face Orders Reconcile Patient Problems Problems Reviewed?: Yes Instructions for Patient Via [facility], Patient Instructions/FollowUp: [facility] Physician to follow Patient: [facility] Discharge Diet for Home: ADA Diet Patient Problems: CVA h/o previous CVA Right BKA hx Goals for Patient: [place] Patient Data-Allergies,Ht & Wt Patient Allergies: Coded Allergies: No Known Drug Allergies (Unverified , 06/26/20) Home Health Need/Face to Face Date of Face to Face: Jul 06, 2020 Clinical Findings: Generalized weakness and fatigue, Instability, Muscle weakness, Unsteady gait I have seen Pt jfls-ya-osnk: Yes Discharged To: Home Diagnosis/Conditions: CVA h/o previous CVA Right BKA hx Patient is Homebound due to: Rosie fall risk due to instabilty, Muscle weakness Homebound Status Due to the above stated illness, injury or surgical procedure (medical condition or diagnosis) and associated clinical findings, the patient is homebound because of his/her inability to leave home except with aid of a supportive device and/or person AND leaving the home requires a considerable and taxing effort or is medically contraindicated. Pt req the following assistanc: Wheelchair Home Health Nursing Orders Home Health Services Order: Nursing Services, [employer]roleum Transport Driver-Evaluate & Treat, Physical Therapy-Evaluate & Treat Certify Stmt I certify that this patient is under my care and that I, a nurse practitioner or a physician; a human resources benefits assistant working with me, had a face to face encounter that - meets the physician face to face encounter requirements with this patient as dated. TREY MARIN DO Jul 06, 2020 12:52
[2020-07-06] MEDS: ENOXAPARIN 40 MG/0.4 ML (LOVENOX) SYR SC SCH (16:15)
[2020-07-06 17:49] VITALS: BP 125/75
[2020-07-07] MEDS: HYDROcodone/APAP 5 MG/325 MG (LORTAB) TAB PO PRN ×3 (00:32→10:01)
[2020-07-07] MEDS: inSUlin ASPART (NovoLOG) 1 UNIT/0.01 ML (CHARGE PER UNIT) SC SCH (05:03)
--- NOTE | 2020-07-07 05:25 | Discharge Summary ---
Diagnosis/Chief Complaint Date of Admission Jul 01, 2020 at 10:40 Date of Discharge Discharge Date: Jul 07, 2020 Discharge Diagnosis Assessment: CVA w/left sided weakness Smoker Right BKA hx Chronic disability HTN HLP CRI Plan: IRF protocol Monitor BP Monitor creatinine 07/02/20: Discontinue IV Pain control Fall risk Smoking cessation 07/03/20: Phantom pain management Therapy 07/04/20: Pain controlled DC Tuesday07/05/20: Pain control Wheelchair order placed 07/06/20: DC tomorrow Reason Hospital Visit Discharge Summary Discharge Physical Examination Allergies: Coded Allergies: No Known Drug Allergies (Unverified , 06/26/20) Vitals & I&Os Vital Signs Date Time Temp Pulse Resp B/P (MAP) Pulse Ox O2 Delivery O2 Flow Rate FiO2 07/07/20 10:00 Room Air 07/07/20 06:43 35.6 72 14 103/64 (77) 94 General Appearance: Alert, Oriented X3 Respiratory: Normal Air Movement Cardiovascular: Regular Rate Neuro: Normal Speech Psych/Mental Status: Mental Status NL Hospital Course Was the Problem List Reviewed?: Yes Hospital Course: Pt had an uneventful seven day hospital course after he was admitted after suffering a CVA with a history of CVA also and a right above the knee amputation. Smoking cessation was counseled. Labs remained stable, vitals remained stable and overall felt like he was doing well, participating in therapy and was ready for DC home with a wheelchair and home health and he will be monitored closely. All medications were triple checked at time of discharge. Labs (last 24 hrs) Laboratory Tests 07/01/20 20:39: Glucometer 133H 07/02/20 05:37: Glucometer 101 07/02/20 05:38: White Blood Count 6.4, Red Blood Count 4.09L, Hemoglobin 12.9L, Hematocrit 37L, Mean Corpuscular Volume 91, Mean Corpuscular Hemoglobin 32, Mean Corpuscular Hemoglobin Concent 35, Red Cell Distribution Width 12.8, Platelet Count 290, M mikey Platelet Volume 10.1, Neutrophils (%) (Auto) 45, Lymphocytes (%) (Auto) 40, Monocytes (%) (Auto) 13H, Eosinophils (%) (Auto) 2, Basophils (%) (Auto) 0, Neutrophils # (Auto) 2.9, Lymphocytes # (Auto) 2.6, Monocytes # (Auto) 0.8, Eos inophils # (Auto) 0.1, Basophils # (Auto) 0.0, Sodium Level 138, Potassium Level 4.2, Chloride Level 107, Carbon Dioxide Level 20L, Anion Gap 11, Blood Urea Nitrogen 13, Creatinine 0.73, Estimat Glomerular Filtration Rate > 60, BUN/Cre atinine Ratio 18, Glucose Level 108H, Calcium Level 8.9, Corrected Calcium 9.0, Total Bilirubin 0.5, Aspartate Amino Transf (AST/SGOT) 26, Alanine Aminotransferase (ALT/SGPT) 45, Alkaline Phosphatase 69, Total Protein 6.8, Albumin 3.9 07/02/20 11:12: Glucometer 130H 07/02/20 15:20: Glucometer 107 07/02/20 16:56: Glucometer 103 07/02/20 20:12: Glucometer 137H 07/03/20 05:42: Glucometer 107 07/03/20 11:18: Glucometer 104 07/03/20 15:51: Glucometer 123H 07/03/20 20:13: Glucometer 135H 07/04/20 05:34: Glucometer 124H 07/04/20 11:05: Glucometer 103 07/04/20 15:41: Glucometer 121H 07/04/20 20:30: Glucometer 151H 07/05/20 04:47: Glucometer 108 07/05/20 10:45: Glucometer 116H 07/05/20 15:33: Glucometer 180H 07/05/20 20:06: Glucometer 134H 07/06/20 04:40: Glucometer 117H 07/06/20 10:35: Glucometer 117H 07/06/20 15:37: Glucometer 143H 07/06/20 20:16: Glucometer 167H 07/07/20 04:28: Glucometer 117H Pending Labs Laboratory Tests 07/01/20 20:39: Glucometer 133 07/02/20 05:37: Glucometer 101 07/02/20 05:38: White Blood Count 6.4, Red Blood Count 4.09, Hemoglobin 12.9, Hematocrit 37, Mean Corpuscular Volume 91, Mean Corpuscular Hemoglobin 32, Mean Corpuscular Hemoglobin Concent 35, Red Cell Distribution Width 12.8, Platelet Count 290, Mean Platelet Volume 10.1, Neutrophils (%) (Auto) 45, Lymphocytes (%) (Auto) 40, Monocytes (%) (Auto) 13, Eosinophils (%) (Auto) 2, Basophils (%) (Auto) 0, Neutrophils # (Auto) 2.9, Lymphocytes # (Auto) 2.6, Monocytes # (Auto) 0.8, Eosinophils # (Auto) 0.1, Basophils # (Auto) 0.0, Sodium Level 138, Potassium Level 4.2, Chloride Level 107, Carbon Dioxide Level 20, Anion Gap 11, Blood Urea Nitrogen 13, Creatinine 0.73, Estimat Glomerular Filtration Rate > 60, BUN/Creatinine Ratio 18, Glucose Level 108, Calcium Level 8.9, Corrected Calcium 9.0, Total Bilirubin 0.5, Aspartate Amino Transf (AST/SGOT) 26, Alanine Aminotransferase (ALT/SGPT) 45, Alkaline Phosphatase 69, Total Protein 6.8, Albumin 3.9 07/02/20 11:12: Glucometer 130 07/02/20 15:20: Glucometer 107 07/02/20 16:56: Glucometer 103 07/02/20 20:12: Glucometer 137 07/03/20 05:42: Glucometer 107 07/03/20 11:18: Glucometer 104 07/03/20 15:51: Glucometer 123 07/03/20 20:13: Glucometer 135 07/04/20 05:34: Glucometer 124 07/04/20 11:05: Glucometer 103 07/04/20 15:41: Glucometer 121 07/04/20 20:30: Glucometer 151 07/05/20 04:47: Glucometer 108 07/05/20 10:45: Glucometer 116 07/05/20 15:33: Glucometer 180 07/05/20 20:06: Glucometer 134 07/06/20 04:40: Glucometer 117 07/06/20 10:35: Glucometer 117 07/06/20 15:37: Glucometer 143 07/06/20 20:16: Glucometer 167 07/07/20 04:28: Glucometer 117 Discharge Home Medications: Active Scripts Active Pantoprazole Sodium 40 Mg Tablet.dr 40 Mg PO DAILY Hydrocodone-Acetamin 5-325 mg (Hydrocodone/Acetaminophen) 1 Each Tablet 1 Tab PO Q4H PRN Reported Aspirin EC (Aspirin) 81 Mg Tablet.dr 81 Mg PO DAILY Metformin HCl ER (Metformin HCl) 500 Mg Tab.er.24h 500 Mg PO BID Lisinopril 40 Mg Tablet 40 Mg PO DAILY LAST FILLED 04-18-2020 #30/30 DAY SUPPLY Coricidin Hbp Cough & Cold Tab (Dextromethorphan HBr/Chlor-Mal) 1 Each Tablet 1 Each PO Q4H PRN Plavix (Clopidogrel Bisulfate) 75 Mg Tablet 75 Mg PO DAILY LAST FILLED 02-26-2020 #90/90 DAY SUPPLY Celecoxib 100 Mg Capsule 100 Mg PO BID WITH MEALS Atorvastatin Calcium 80 Mg Tablet 80 Mg PO HS Instructions to patient/family Please see electronic discharge instructions given to patient. Diagnosis/Problems Diagnosis/Problems (1) CVA (cerebral vascular accident) Qualifiers: Qualified Codes: I63.9 - Cerebral infarction, unspecified (2) Carotid stenosis Status: Chronic (3) History of CVA with residual deficit Status: Chronic (4) Amputee of extremity Status: Chronic (5) PAD (peripheral artery disease) Status: Chronic (6) Non-insulin dependent type 2 diabetes mellitus Status: Chronic (7) CKD (chronic kidney disease) Status: Chronic (8) HLD (hyperlipidemia) Status: Chronic (9) Essential (primary) hypertension Status: Chronic (10) Left-sided weakness (11) Smoker within last 12 months Status: Acute Clinical Quality Measures DVT/VTE Risk/Contraindication: Risk Factor Score Per Nursin RFS Level Per Nursing on Admit: 4+=Very High TREY MARIN DO Jul 07, 2020 05:25
[2020-07-07 06:43] VITALS: BP 103/64
--- NOTE | 2020-07-07 08:51 | Occupational Ther Daily Note ---
OT Current Status-Daily Note Subjective Pt seated in w/c, agreeable to OT tx at this time. Pt reports he is excited to discharge home today. Mental Status/Objective Patient Orientation: Person, Place, Time, Situation ADL-Treatment Therapy Code Descriptions/Definitions Functional [place] Measure: 0=Not Assessed/NA 4=Minimal Assistance 1=Total Assistance 5=Supervision or Setup 2=Maximal Assistance 6=Modified [place] 3=Moderate Assistance 7=Complete IndependenceSCALE: Activities may be completed with or without assistive devices. 7-Nywlrbabsj-hfqpehe completes the activity by him/herself with no assistance from a helper. 5-Set-up or Clean-up Assistance-helper sets up or cleans up; patient completes activity. [place] assists only prior to or following the activity. 4-Supervision or Touching Assistance-helper provides verbal cues and/or touching/steadying and/or contact guard assistance as patient completes activity. Assistance may be provided throughout the activity or intermittently. 3-Partial/Moderate Assistance-helper does LESS THAN HALF the effort. [place] lifts, holds or supports trunk or limbs, but provides less than half the effort. 2-Substantial/Maximal Assistance-helper does MORE THAN HALF the effort. [place] lifts or holds trunk or limbs and provides more than half the effort. 2-Zroanfbzb-rpckrl does ALL the effort. Patient does none of the effort to complete the activity. Or, the assistance of 2 or more helpers is required for the patient to complete the activity. If activity was not attempted, code reason: 7-Patient Refused. 9-Not Applicable-not attempted and the patient did not perform the activity before the current illness, exacerbation or injury. 10-Not Attempted due to Environmental Limitations-(lack of equipment, weather restraints, etc.). 88-Not Attempted due to Medical Conditions or Safety Concerns. Eating (QC): 6 (pt reports no difficulty with feeding.) Oral Hygiene (QC): 6 (Pt independent with task at w/c level.) Shower/Bathe Self (QC): 5 (set up of shower area, pt then able to wash/dry all parts) Upper Body Dressing (QC): 6 Lower Body Dressing (QC): 4 (SBA, pt able to doff/don lower body clothes in stance at GBS, using RLE residual limb in w/c for stability.) On/Off Footwear: 6 Toileting Hygiene (QC): 5 (clean up of urinal.) Toilet Transfer (QC): 4 (Pt declined task at this time stating he had gotten onto toilet earlier with staff by himself, with staff present) Other Treatment Pt seated in w/c, maneuvered w/c into restroom and beside shower. Pt transferred into shower using GBs with SBA. He completed showering and lower body dressing at OR, transferred back to w/c with SBA. Then finished dressing. Pt able to use urinal with clean up assistance after task. Pt reports he brushed his teeth prior to OT tx independently and he had no difficulties eating lunch. Post OT tx, pt seated in recliner, call light in reach and all needs met. Education OT Patient Education: Correct positioning, Modified ADL techniques, Progress toward Goal/Update tx plan, Purpose of tx/functional activities Teaching Recipient: Patient Teaching Methods: Discussion Response to Teaching: Verbalize Understanding OT Short Term Goals Short Term Goals Time Frame: Jul 11, 2020 Shower/bathe self: 3 Lower body dressin OT Senior Care Goals Senior Care Goals Time Frame: Jul 25, 2020 Eating (QC): 6 (met) Oral Hygiene (QC): 6 (met) Toileting Hygiene (QC): 6 (not met, set up) Shower/Bathe Self (QC): 6 (regina met, set up) Upper Body Dressing (QC): 6 (met) Lower Body Dressing (QC): 6 (not met, SBA) On/Off Footwear (QC): 6 (met) Additional Goals: 1-Demonstrate ADL Tasks, 2-Verbalize Understanding, 3- ImproveStrength/Chadd 1=Demonstrate adherence to instructed precautions during ADL tasks. 2=Patient will verbalize/demonstrate understanding of assistive devic es/modifications for ADL. 3=Patient will improve strength/tolerance for activity to enable patient to perform ADL's. OT Education/Plan Problem List/Assessment Assessment: Decreased Activ Tolerance, Impaired I ADL's Discharge Recommendations Plan/Recommendations: Continue POC Treatment Plan/Plan of Care Patient would benefit from OT for education, treatment and training to promote independence in ADL's, mobility, safety and/or upper extremity function for ADL's. Plan of Care: ADL Retraining, Functional Mobility, Group Exercise/Act as Ind, UE Funct Exercise/Act, UE Neuromus Re-Ed/Coord, W/C Management Training Treatment Duration: Jul 25, 2020 Frequency: At least 5 of 7 days/Wk (IRF) Estimated Hrs Per Day: 1.5 hours per day Rehab Potential: Fair Time/GCodes Start Time: 08:00 Stop Time: 08:25 Total Time Billed (hr/min): 25 Billed Treatment Time 1, ADL 2 JUAN C LOW OT Jul 07, 2020 08:51
--- NOTE | 2020-07-07 09:16 | Speech Therapy Daily Note ---
Speech Daily Progress Note Subjective Date Seen by Provider: Jul 07, 2020 Time Seen by Provider: 00:10 Patient reports he is going home this morning and he is ready. Objective Patient recalled his events of the morning with 100% and no cues. Assessment Assessment Current Status: Good Progress Treatment Plan Discontinue ST, Goals Met Speech Short Term Goals Short Term Goals Short Term Goals 1) Patient will complete memory tasks related to himself/needs at 90% or greater with minimal cues. 2) Patient will complete safety awareness tasks related to himself/needs at 90% or greater with minimal cues. 3) Patient will complete problem solving tasks related to himself/needs at 90% or greater with minimal cues. 4) Patient will tolerate least restrictive diet level without s/s of aspiration. Speech Optical Goods Drilling Machine Operator Goals Optical Good[employer] Drilling Machine Operator Goals Patient will improve cognitive-communication ability in order to meet his daily needs with minimal assist. Patient will maintain adequate nutrition/hydration via safe, effective swallow function. Speech-Plan Patient/Family Goals Patient/Family Goals: Patient is discharging to his home this date. Treatment Plan Speech Therapy Treatment Plan: Discontinue ST, Goals Met Treatment Duration: Jul 07, 2020 Frequency: 4 times per week (Patient will receive skilled therapy 4-5x per week) Estimated Hrs Per Day: .5 hour per day Rehab Potential: Fair Barriers to Learning: Patient's ongoing medical issues. Pt/Family Agrees to Plan: Yes Safety Risks/Education Teaching Recipient: Patient Teaching Methods: Demonstration, Discussion Response to Teaching: Verbalize Understanding, Return Demonstration Education Topics Provided: Continued safety upon his return home Time Speech Therapy Time In: 09:00 Speech Therapy Time Out: 09:10 Total Billed Time: 10 Billed Treatment Time 1, SLTS No QUALITY CODES: EXPRESSION OF IDEAS/WANTS: 4 UNDERSTANDING VERBAL CONTENT: 4 BRIEF INTERVIEW MENTAL STATUS: YES REPETITION OF 3 WORDS: 3 TEMPORAL ORIENTATION: YEAR: CORRECT, MONTH: CORRECT, DAY: CORRECT RECALL: SOCK: YES, COLOR: YES, BED: YES MEMORY/RECALL ABILITY: SEASON, LOCATION OF ROOM, THAT HE IS IN THE HOSPITAL REJI LACY Jul 07, 2020 09:16
--- NOTE | 2020-07-07 09:18 | Therapy Team Discharge Summary ---
Therapy Discharge Summary Discharge Recommendations Date of Discharge Occupational Therapy Decreased Activ Tolerance, Impaired I ADL's Speech-Language Pathology Patient was admitted to the ARU s/p CVA. Patient was given the SLUMS with indication of cognitive therapy need. Patient received skilled ST with goals being met. Patient is discharging to his home where he lives with his girlfriend. PT Custodial Goals Custodial Goals PT Custodial Goals Time Frame: Jul 22, 2020 Roll Left to Right (QC): 6 Sit to Lying (QC): 6 Lying-Sitting on Side/Bed(QC): 6 Sit to Stand (QC): 5 Chair/Ycx-fz-Tloqq Xfer(QC): 5 Car Transfer (QC): 5 Does the Patient Walk: No and Walking Goal NOT indicated Distance: See PT goals Walk 10 feet (QC): 88 Walk 10ft-Uneven Surface(QC): 88 Walk 50ft with 2 Turns (QC): 88 Walk 150 ft (QC): 88 Does the Pt use WC or Scooter?: No Wheel 50 feet with 2 turns (QC: 6 1 Step (curb) (QC): 88 4 Steps (QC): 88 12 Steps (QC): 88 Picking up an Object (QC): 88 OT Custodial Goals Custodial Goals Time Frame: Jul 25, 2020 Eating (QC): 6 (met) Oral Hygiene (QC): 6 (met) Shower/Bathe Self (QC): 6 (regina met, set up) Upper Body Dressing (QC): 6 (met) Lower Body Dressing (QC): 6 (not met, SBA) On/Off Footwear (QC): 6 (met) Toileting Hygiene (QC): 6 (not met, set up) Toilet/Commode Transfer (QC): 5 Additional Goals: 1-Demonstrate ADL Tasks, 2-Verbalize Understanding, 3- ImproveStrength/Chadd 1=Demonstrate adherence to instructed precautions during ADL tasks. 2=Patient will verbalize/demonstrate understanding of assistive devices/modifications for ADL. 3=Patient will improve strength/tolerance for activity to enable patient to perform ADL's. Speech Custodial Goals Custodial Goals Patient will improve cognitive-communication ability in order to meet his daily needs with minimal assist. Patient will maintain adequate nutrition/hydration via safe, effective swallow f unction. REJI LACY Jul 07, 2020 09:18
--- NOTE | 2020-07-07 09:49 | Physical Therapy Daily Note ---
PT Daily Note-Current Subjective Pt presents in room sitting upright in wheelchair. Pt agrees to PT. Pt reports no pain. Appearance After PT tx concludes pt is supervised in his return to his room. Pt remains upright in wheelchair with access to tray, call button, and all needs met. Mental Status Patient Orientation: Person, Place, Time, Eyes Open, Situation Transfers SCALE: Activities may be completed with or without assistive devices. 7-Nmxtygihqw-mpwqbxq completes the activity by him/herself with no assistance from a helper. 5-Set-up or Clean-up Assistance-helper sets up or cleans up; patient completes activity. [place] assists only prior to or following the activity. 4-Supervision or Touching Assistance-helper provides verbal cues and/or touching/steadying and/or contact guard assistance as patient completes activity. Assistance may be provided throughout the activity or intermittently. 3-Partial/Moderate Assistance-helper does LESS THAN HALF the effort. [place] lifts, holds or supports trunk or limbs, but provides less than half the effort. 2-Substantial/Maximal Assistance-helper does MORE THAN HALF the effort. [place] lifts or holds trunk or limbs and provides more than half the effort. 1-Rksiaiglb-yilnzl does ALL the effort. Patient does none of the effort to complete the activity. Or, the assistance of 2 or more helpers is required for the patient to complete the activity. If activity was not attempted, code reason: 7-Patient Refused. 9-Not Applicable-not attempted and the patient did not perform the activity before the current illness, exacerbation or injury. 10-Not Attempted due to Environmental Limitations-(lack of equipment, weather restraints, etc.). 88-Not Attempted due to Medical Conditions or Safety Concerns. Roll Left & Right (QC): 6 Sit to Lying (QC): 6 Lying to Sitting/Side of Bed(Q: 6 Sit to Stand (QC): 6 Chair/Twi-cm-Fentq Xfer(QC): 6 Toilet Transfer (QC): 6 Car Transfer (QC): 4 Stand-by assist provided during car transfers. Pt transfers in unconventional manner, but a way that he finds successful for himself. Weight Bearing Full Weight Bearing Gait Training Does the Patient Walk?: No and Walking Goal NOT indicated Walk 10 feet (QC): 9 Walk 50 ft with 2 Turns(QC): 9 Walk 150 ft (QC): 9 Walking 10ft/uneven surface-QC: 9 Wheelchair Training Does the Pt Use a Wheelchair?: Yes Wheel 50 ft with 2 turns (QC): 6 Wheel 150 ft (QC): 6 Type of Wheelchair: Manual Stair Training 1 Step (curb) (QC): 9 4 Steps (QC): 9 12 Steps (QC): 9 Treatments Review car transfer and bed mobility for QC Assessment Current Status: Fair Progress Pt able to complete all transfers and bed mobility independent; stand-by as sistance and supervision was available if needed. PT Short Term Goals Short Term Goals Time Frame: Jul 08, 2020 Roll Left & Right: 6 Sit to lyin Lying to sitting on side of be: 6 Sit to stand: 4 Chair/zna-re-okvdg transfer: 4 PT Audiovisual Aids Technician Goals Audiovisual Aids Technician Goals PT Audiovisual Aids Technician Goals Time Frame: Jul 22, 2020 Roll Left & Right (QC): 6 Sit to Lying (QC): 6 Lying-Sitting on Side/Bed(QC): 6 Sit to Stand (QC): 5 Chair/Vfx-yj-Lcorq Xfer(QC): 5 Toilet Transfer (QC): 5 Car Transfer (QC): 5 Does the Patient Walk: No and Walking Goal NOT indicated Walk 10 feet (QC): 88 Walk 50ft with 2 Turns (QC): 88 Walk 150 ft (QC): 88 Walking 10ft on Uneven Surface: 88 1 Step (curb) (QC): 88 4 Steps (QC): 88 12 Steps (QC): 88 Picking up an Object (QC): 88 Does the Pt use WC or Scooter?: No Wheel 50 feet with 2 turns (QC: 6 Type: N/A Wheel 150 feet: 6 Type: N/A PT Plan Problem List Problem List: Activity Tolerance, Functional Strength, Safety, Balance, Gait, Transfer Treatment/Plan Treatment Plan: Continue Plan of Care Treatment Plan: Bed Mobility, Education, Functional Activity Chadd, Functional Strength, Group Therapy, Gait, Safety, Therapeutic Exercise, Transfers Treatment Duration: Jul 22, 2020 Frequency: At least 5 of 7 days/Wk (IRF) Estimated Hrs Per Day: 1.5 hours per day Patient and/or Family Agrees t: Yes Safety Risks/Education Patient Education: Transfer Techniques, W/C Management, Safety Issues Teaching Recipient: Patient Teaching Methods: Demonstration, Discussion Response to Teaching: Reinforcement Needed Time/GCodes Time In: 929 Time Out: 944 Total Billed Treatment Time: 15 Total Billed Treatment 1 visit FA AMELIA MAGALLANES PT Jul 07, 2020 09:48
[2020-07-07] MEDS: CLOPIDOGREL 75 MG (PLAVIX) TABLET PO SCH (09:58)
[2020-07-07] MEDS: ASPIRIN E.C. 81 MG (ECOTRIN) TAB PO SCH (09:58)
[2020-07-07] MEDS: PANTOPRAZOLE 40 MG (PROTONIX) TAB PO SCH (09:58)
[2020-07-07] MEDS: DOCUSATE SODIUM 100 MG (COLACE) CAP PO SCH (09:58)
--- NOTE | 2020-07-07 09:58 | Therapy Team Discharge Summary ---
Therapy Discharge Summary Discharge Recommendations Date of Discharge Physical Therapy Patient came to rehab following a CVA. Upon evaluation patient performed bed mobility and supine <-> sit with SBA, sit <-> stand mod assist, transfers max assist, car transfer max assist, WC 150' SBA, no ambulation. Patient has been performing bed mobility and transfer training, balance and endurance training, functional strengthening, WC mobility training, and education. Patient has made good progress and has met all of his prison goals except for car transfer. Now, patient is independent with bed mobility and transfers, SBA with car transfer, independent with WC mobility. Patient was non-ambulatory previously and continues to be so. Patient is discharging from this facility today and will be discharged from PT at this time. Occupational Therapy Decreased Activ Tolerance, Impaired I ADL's PT Immunohematologist Goals Immunohematologist Goals PT Immunohematologist Goals Time Frame: Jul 22, 2020 Roll Left to Right (QC): 6 Sit to Lying (QC): 6 Lying-Sitting on Side/Bed(QC): 6 Sit to Stand (QC): 5 Chair/Plp-hy-Bdnkk Xfer(QC): 5 Car Transfer (QC): 5 Does the Patient Walk: No and Walking Goal NOT indicated Distance: See PT goals Walk 10 feet (QC): 88 Walk 10ft-Uneven Surface(QC): 88 Walk 50ft with 2 Turns (QC): 88 Walk 150 ft (QC): 88 Does the Pt use WC or Scooter?: No Wheel 50 feet with 2 turns (QC: 6 1 Step (curb) (QC): 88 4 Steps (QC): 88 12 Steps (QC): 88 Picking up an Object (QC): 88 OT Prison Goals Prison Goals Time Frame: Jul 25, 2020 Eating (QC): 6 (met) Oral Hygiene (QC): 6 (met) Shower/Bathe Self (QC): 6 ([place] met, set up) Upper Body Dressing (QC): 6 (met) Lower Body Dressing (QC): 6 (not met, SBA) On/Off Footwear (QC): 6 (met) Toileting Hygiene (QC): 6 (not met, set up) Toilet/Commode Transfer (QC): 5 Additional Goals: 1-Demonstrate ADL Tasks, 2-Verbalize Understanding, 3- ImproveStrength/Chadd 1=Demonstrate adherence to instructed precautions during ADL tasks. 2=Patient will verbalize/demonstrate understanding of assistive devices /modifications for ADL. 3=Patient will improve strength/tolerance for activity to enable patient to perform ADL's. Speech Prison Goals Immunohematologist Goals Patient will improve cognitive-communication ability in order to meet his daily needs with minimal assist. Patient will maintain adequate nutrition/hydration via safe, effective swallow function. AMELIA COSTELLO PT Jul 07, 2020 09:58
[2020-07-07] MEDS: lisINopril 40 MG (PRINIVIL) TABLET PO SCH (10:01)
[2020-07-07] MEDS: SENNA W/DOCUSATE (SENOKOT S) TABLET PO SCH (10:01)
[2020-07-07] MEDS: polyethylene glycoL POWDER 17 GM (MIRALAX) PACK PO SCH (10:03)
--- NOTE | 2020-07-07 11:19 | Therapy Team Discharge Summary ---
Therapy Discharge Summary Discharge Recommendations Date of Discharge Occupational Therapy Pt to ARU with dx of CVA. At OF, pt was independent with all ADLS and functional mobility using w/c. At admission, pt required set up assistance with feeding, independent oral hygiene, min A showering, set up upper body dressing, dependent lower body dressing (assist x2), and set up feeding. OT txs focused on increasing safety and independence with ADLs and functional activities, increasing BUE strength and functional endurance, and increasing fine motor strength/coordination. At discharge, pt was independent with feeding and oral care, set up showering, independent upper body dressing, SBA lower body dressing, independent footwear, and set up toileting. Pt made good progress towards goals, meeting independent level with feeding, oral hygiene, upper body dressing and footwear. Pt to discharge from facility on this date, d/c from OT at this time. Decreased Activ Tolerance, Impaired I ADL's PT Residential Goals Residential Goals PT Printing Machine Mechanic Goals Time Frame: Jul 22, 2020 Roll Left to Right (QC): 6 Sit to Lying (QC): 6 Lying-Sitting on Side/Bed(QC): 6 Sit to Stand (QC): 5 Chair/[id number] Xfer(QC): 5 Car Transfer (QC): 5 Does the Patient Walk: No and Walking Goal NOT indicated Distance: See PT goals Walk 10 feet (QC): 88 Walk 10ft-Uneven Surface(QC): 88 Walk 50ft with 2 Turns (QC): 88 Walk 150 ft (QC): 88 Does the Pt use WC or Scooter?: No Wheel 50 feet with 2 turns (QC: 6 1 Step (curb) (QC): 88 4 Steps (QC): 88 12 Steps (QC): 88 Picking up an Object (QC): 88 OT Printing Machine Mechanic Goals Printing Machine Mechanic Goals Time Frame: Jul 25, 2020 Eating (QC): 6 (met) Oral Hygiene (QC): 6 (met) Shower/Bathe Self (QC): 6 (not met, set up) Upper Body Dressing (QC): 6 (met) Lower Body Dressing (QC): 6 (not met, SBA) On/Off Footwear (QC): 6 (met) Toileting Hygiene (QC): 6 (not met, set up) Toilet/Commode Transfer (QC): 5 Additional Goals: 1-Demonstrate ADL Tasks, 2-Verbalize Understanding, 3- ImproveStrength/Chadd 1=Demonstrate adherence to instructed precautions during ADL tasks. 2=Patient will verbalize/demonstrate understanding of assistive devices/modifications for ADL. 3=Patient will improve strength/tolerance for activity to enable patient to perform ADL's. Speech Printing Machine Mechanic Goals Printing Machine Mechanic Goals Patient will improve cognitive-communication ability in order to meet his daily needs with minimal assist. Patient will maintain adequate nutrition/hydration via safe, effective swallow function. JUAN C LOW OT Jul 07, 2020 11:19
== END 2020-07-07 10:56 | disposition home health service (06) | DRG 57 ==
PROVIDERS: ADMIT Internal Medicine; ATTEND Internal Medicine
DX: I69.354 Hemiplegia and hemiparesis following cerebral infarction affecting left non-dominant side (principal); Z89.511 Acquired absence of right leg below knee; G54.6 Phantom limb syndrome with pain; I65.21 Occlusion and stenosis of right carotid artery; I12.9 Hypertensive chronic kidney disease with stage 1 through stage 4 chronic kidney disease, or unspecified chronic kidney disease; E11.22 Type 2 diabetes mellitus with diabetic chronic kidney disease; N18.9 Chronic kidney disease, unspecified; E78.00 Pure hypercholesterolemia, unspecified; E78.5 Hyperlipidemia, unspecified; I27.20 Pulmonary hypertension, unspecified; J44.9 Chronic obstructive pulmonary disease, unspecified; I73.9 Peripheral vascular disease, unspecified; K21.9 Gastro-esophageal reflux disease without esophagitis; M19.91 Primary osteoarthritis, unspecified site; E66.9 Obesity, unspecified; Z79.84 Long term (current) use of oral hypoglycemic drugs; Z68.31 Body mass index [BMI] 31.0-31.9, adult; Z87.891 Personal history of nicotine dependence
CPT/HCPCS: 36415; 80053; 82962; 85025

== ENCOUNTER → 2020-08-06 | Outpatient (CLI) | payer MEDICARE ==
[~2020-08-06] VITALS: Ht 170 cm; Wt 90.0 kg
[~2020-08-06] MED LIST changes: -ACETAMINOPHEN 500 MG TAB (TYLENOL) PO PRN; +ACHD5005 PO; -ALPRAZolam 0.25 MG (XANAX) TAB PO PRN; -BISACODYL 10 MG SUPP (DULCOLAX) PR PRN; -CALCIUM CARBONATE 500 MG (TUMS) TAB.CHEW PO PRN; +CATHETER FLUSH 10 ML SYR IV PRN; -DOCUSATE SODIUM 100 MG (COLACE) CAP PO PRN; -FLEET ENEMA ADULT 1 EA BTL PR PRN; -LACTULOSE SYRUP 10GM/15ML (ENULOSE) 30ML UDC PO PRN; -LOPERAMIDE 2 MG (IMODIUM) TABLET PO PRN; -MELATONIN 3 MG TABLET PO PRN; -ONDANSETRON 4 MG (ZOFRAN) ORAL DISSOLVE TAB PO PRN; +PANT40TA52 PO; +REGADENOSON 0.4 MG/5 ML SYR (LEXISCAN) IV ONE; -diphenhydrAMINE 25 MG TAB (BENADRYL) PO PRN
[2020-08-06 09:55] VITALS: BP 197/109
--- NOTE | 2020-08-06 12:44 | Cardiology Stress Test Report ---
Stress Test Report Date of Procedure/Referring: Date of Procedure: Aug 06, 2020 PCP Maty Craig MD Admitting Physician Anitha Lee DO Indications: CVA Baseline Heart Rate: 67 Baseline Blood Pressure: Blood Pressure Systolic: 197 Blood Pressure Diastolic: 109 Baseline Vitals Vital Signs Date Time Temp Pulse Resp B/P (MAP) Pulse Ox O2 Delivery O2 Flow Rate FiO2 08/06/20 09:55 86 197/109 (138) Baseline EKG: Baseline EKG: normal sinus rhythm Summary After explaining the procedure to the patient, he signed a consent and then brought to the stress nuclear laboratory. Patient received 0.4 mg Lexiscan for stress test, ECG, heart rate and blood pressure were monitored continuously. Resting and stress dose of radio tracer were injected, imaging was acquired and reviewed in short axis, horizontal long axis and vertical long axis views. TID: 1.07 SSS: 2 SDS: 2 EF: 63 1. Patient tolerated Lexiscan well 2. No significant ischemia or infarction on SPECT images 3. Normal left ventricular size, EF 63 percent MATY CRAIG MD Aug 06, 2020 12:44
== END ==
LOC: CARD 08:45
PROVIDERS: ATTEND Internal Medicine Cardiovascular Disease
DX: I63.9 Cerebral infarction, unspecified (principal); I08.1 Rheumatic disorders of both mitral and tricuspid valves; I73.9 Peripheral vascular disease, unspecified
CPT/HCPCS: 78452; 93017; A9502

== ENCOUNTER 2020-09-18 15:34 | Emergency (ER) | payer MEDICARE ==
[~2020-09-18] VITALS: Ht 170.1 cm; Wt 97.7 kg
[2020-09-18 15:34] VITALS: BP 120/76
[~2020-09-18 15:34] MED LIST changes: -CATHETER FLUSH 10 ML SYR IV PRN; -REGADENOSON 0.4 MG/5 ML SYR (LEXISCAN) IV ONE
--- NOTE | 2020-09-18 15:44 | ED Integumentary General ---
General Chief Complaint: Skin/Wound Problems Stated Complaint: L EXT WOUND Source: patient Exam Limitations: no limitations History of Present Illness Date Seen by Provider: Sep 18, 2020 Time Seen by Provider: 15:41 Initial Comments Patient had some sort of stenting procedure by Dr. Cardona at [facility] on Tuesday of this week. He presented to the [facility] clinic today for concerns about a dehiscence of the inferior aspect of the incision to the right groin. They called Dr. Cardona and came to the emergency room by EMS. Timing/Duration: constant Severity: moderate Location: extremities Associated Symptoms: denies symptoms Allergies and Home Medications Allergies Coded Allergies: No Known Drug Allergies (Unverified , 06/26/20) Home Medications Aspirin 81 Mg Tablet.dr, 81 MG PO DAILY, (Reported) Atorvastatin Calcium 80 Mg Tablet, 80 MG PO HS, (Reported) Celecoxib 100 Mg Capsule, 100 MG PO BID WITH MEALS, (Reported) Clopidogrel Bisulfate 75 Mg Tablet, 75 MG PO DAILY, (Reported) LAST FILLED 02-26-2020 #90/90 DAY SUPPLY Dextromethorphan HBr/Chlor-Mal 1 Each Tablet, 1 EACH PO Q4H PRN for COUGH, (Reported) Hydrocodone/Acetaminophen 1 Each Tablet, 1 TAB PO Q4H PRN for PAIN-MODERATE (5- 7) Prescribed by: TREY MARIN on 07/06/20 1251 Lisinopril 40 Mg Tablet, 40 MG PO DAILY, (Reported) LAST FILLED 04-18-2020 #30/30 DAY SUPPLY Metformin HCl 500 Mg Tab.er.24h, 500 MG PO BID, (Reported) Pantoprazole Sodium 40 Mg Tablet.dr, 40 MG PO DAILY Prescribed by: TREY MARIN on 07/06/20 1251 Patient Home Medication List Home Medication List Reviewed: Yes Review of Systems Review of Systems Constitutional: see HPI EENTM: see HPI Respiratory: no symptoms reported Cardiovascular: no symptoms reported Genitourinary: no symptoms reported Musculoskeletal: no symptoms reported Skin: no symptoms reported Psychiatric/Neurological: No Symptoms Reported Endocrine: No Symptoms Reported Past Yzahoaf-Fdhjao-Uhylvb Hx Patient Social History Alcohol Beverage of Choice: Beer Type Used: Cigarettes Former Smoker, Quit: Apr 24, 2020 Recent Hopitalizations: Yes Immunizations Up To Date PED Vaccines UTD: No Seasonal Allergies Seasonal Allergies: No Past Medical History Surgeries: Yes Amputation, Arteriovenous Shunt, Orthopedic Respiratory: No Currently Using CPAP: No Currently Using BIPAP: No Cardiac: Yes High Cholesterol, Hypertension, Peripheral Vascular Neurological: Yes Stroke Sexually Transmitted Disease: No HIV/AIDS: No Genitourinary: No Gastrointestinal: Yes Gastroesophageal Reflux Amputee, Arthritis Endocrine: Yes Diabetes, Non-Insulin dep HEENT: No Loss of Vision: Denies Hearing Impairment: Denies Cancer: No Psychosocial: No Integumentary: No Blood Disorders: No Adverse Reaction/Blood Tranf: No Family Medical History Diabetes mellitus 19 FATHER FHx: cancer Heart Disease, Cancer, Diabetes, Stroke Sister passed of breast cancer at age 48 Brother hx of NH Physical Exam Vital Signs Capillary Refill : General Appearance: WD/WN, no apparent distress Respiratory: no respiratory distress, no accessory muscle use Neurologic/Psychiatric: alert, normal mood/affect, oriented x 3 Skin: normal color, warm/dry Skin Problem Character: other (The incision to the right groin is without erythema or induration. There is a small amount of ecchymosis. No drainage. The inferior aspect of the wound measuring 1.5 cm and gaping by about 0.5 cm with some exposed subcutaneous tissue and without drainage is unimpressive and does not require reclosure.) Departure Communication (Admissions) I spoke with Dr. Cardona at [place] who states that he would be happy to see the patient tomorrow morning for follow-up. This is only a dehiscence of the skin, not a dehiscence of the subcutaneous tissues. Impression Primary Impression: Partial dehiscence of wound Disposition: 01 HOME, SELF-CARE Condition: Stable Departure-Patient Inst. Decision time for Depature: 15:43 Referrals: SENIA FLORES DO (PCP) Primary Care Physician [facility] (Family) Primary Care Physician Patient Instructions: Wound Care (DC) Add. Discharge Instructions: 1. I spoke with Dr. Cardona, he would be happy to see you tomorrow morning in the clinic if you are concerned. Otherwise you can keep your routine a ppointment. All discharge instructions reviewed with patient and/or family. Voiced understanding. DULCE MARIA ALVAREZ APRN Sep 18, 2020 15:44
== END 2020-09-18 15:56 | disposition home or self-care (01) ==
LOC: EDUNIT# 15:34 → ER 15:35
DX: T81.30XA Disruption of wound, unspecified, initial encounter (principal); I10 Essential (primary) hypertension; K21.9 Gastro-esophageal reflux disease without esophagitis; E11.9 Type 2 diabetes mellitus without complications; E78.00 Pure hypercholesterolemia, unspecified; Z82.49 Family history of ischemic heart disease and other diseases of the circulatory system; Z80.9 Family history of malignant neoplasm, unspecified; Z83.3 Family history of diabetes mellitus; Z87.891 Personal history of nicotine dependence; Z79.82 Long term (current) use of aspirin; Z79.84 Long term (current) use of oral hypoglycemic drugs
CPT/HCPCS: 99283

== ENCOUNTER → 2020-10-08 | Outpatient (CLI) | payer MEDICARE | LOC: LAB 14:53 | PROVIDERS: ATTEND Surgery | DX: L98.492 Non-pressure chronic ulcer of skin of other sites with fat layer exposed (principal); L03.115 Cellulitis of right lower limb; E66.01 Morbid (severe) obesity due to excess calories; R73.09 Other abnormal glucose | CPT/HCPCS: 36415; 83036 ==

== ENCOUNTER → 2020-10-08 | Outpatient (CLI) | payer MEDICARE | LOC: WOUNDCARE 13:11 | PROVIDERS: ATTEND Surgery | DX: L98.492 Non-pressure chronic ulcer of skin of other sites with fat layer exposed (principal); L03.115 Cellulitis of right lower limb; E66.01 Morbid (severe) obesity due to excess calories; R73.09 Other abnormal glucose | CPT/HCPCS: 11042; 11045; G0463 ==

== ENCOUNTER → 2020-10-16 | Outpatient (CLI) | payer MEDICARE | LOC: WOUNDCARE 12:59 | PROVIDERS: ATTEND Surgery | DX: L98.492 Non-pressure chronic ulcer of skin of other sites with fat layer exposed (principal); I96 Gangrene, not elsewhere classified; E66.01 Morbid (severe) obesity due to excess calories; R73.09 Other abnormal glucose; R21 Rash and other nonspecific skin eruption; Z68.32 Body mass index [BMI] 32.0-32.9, adult | CPT/HCPCS: A6197; G0463; 99212 ==

== ENCOUNTER → 2020-10-30 | Outpatient (CLI) | payer MEDICARE | LOC: WOUNDCARE 13:02 | PROVIDERS: ATTEND Orthopaedic Surgery Hand Surgery | DX: I96 Gangrene, not elsewhere classified (principal); L98.492 Non-pressure chronic ulcer of skin of other sites with fat layer exposed; E66.01 Morbid (severe) obesity due to excess calories; R73.09 Other abnormal glucose; R21 Rash and other nonspecific skin eruption; Z68.32 Body mass index [BMI] 32.0-32.9, adult | CPT/HCPCS: 11042; 87070; 87077; 87205; A6260; G0463; 87181; 87186 ==

== ENCOUNTER → 2020-11-06 | Outpatient (CLI) | payer MEDICARE | LOC: WOUNDCARE 13:01 | PROVIDERS: ATTEND Surgery | DX: L98.492 Non-pressure chronic ulcer of skin of other sites with fat layer exposed (principal); I96 Gangrene, not elsewhere classified; E66.01 Morbid (severe) obesity due to excess calories; Z68.32 Body mass index [BMI] 32.0-32.9, adult | CPT/HCPCS: 11042; G0463 ==

== ENCOUNTER → 2020-11-13 | Outpatient (CLI) | payer MEDICARE | LOC: WOUNDCARE 12:56 | PROVIDERS: ATTEND Surgery | DX: L98.492 Non-pressure chronic ulcer of skin of other sites with fat layer exposed (principal); E66.01 Morbid (severe) obesity due to excess calories; I96 Gangrene, not elsewhere classified; Z68.32 Body mass index [BMI] 32.0-32.9, adult | CPT/HCPCS: 11042; G0463 ==

== ENCOUNTER → 2020-11-20 | Outpatient (CLI) | payer MEDICARE | LOC: WOUNDCARE 12:54 | PROVIDERS: ATTEND Surgery | DX: I96 Gangrene, not elsewhere classified (principal); L98.492 Non-pressure chronic ulcer of skin of other sites with fat layer exposed; E66.01 Morbid (severe) obesity due to excess calories; Z68.32 Body mass index [BMI] 32.0-32.9, adult | CPT/HCPCS: 11042; G0463 ==

== ENCOUNTER → 2020-11-27 | Outpatient (CLI) | payer MEDICARE ==
[~2020-11-27] MED LIST changes: -LISI40TA PO; +LISI40TA9 PO
== END ==
LOC: WOUNDCARE 12:51
PROVIDERS: ATTEND Surgery
DX: I96 Gangrene, not elsewhere classified (principal); L98.492 Non-pressure chronic ulcer of skin of other sites with fat layer exposed; E66.01 Morbid (severe) obesity due to excess calories; Z68.32 Body mass index [BMI] 32.0-32.9, adult
CPT/HCPCS: 11042; G0463

== ENCOUNTER → 2020-12-04 | Outpatient (CLI) | payer MEDICARE | LOC: WOUNDCARE 12:48 | PROVIDERS: ATTEND Orthopaedic Surgery Hand Surgery | DX: L98.492 Non-pressure chronic ulcer of skin of other sites with fat layer exposed (principal); I96 Gangrene, not elsewhere classified; E66.01 Morbid (severe) obesity due to excess calories; Z68.32 Body mass index [BMI] 32.0-32.9, adult | CPT/HCPCS: 11042; G0463 ==

== ENCOUNTER → 2020-12-11 | Outpatient (CLI) | payer MEDICARE | LOC: WOUNDCARE 12:59 | PROVIDERS: ATTEND Surgery | DX: L98.492 Non-pressure chronic ulcer of skin of other sites with fat layer exposed (principal); E66.01 Morbid (severe) obesity due to excess calories; I96 Gangrene, not elsewhere classified | CPT/HCPCS: 11042; G0463 ==

== ENCOUNTER → 2020-12-18 | Outpatient (CLI) | payer MEDICARE | LOC: WOUNDCARE 12:43 | PROVIDERS: ATTEND Orthopaedic Surgery Hand Surgery | DX: L98.492 Non-pressure chronic ulcer of skin of other sites with fat layer exposed (principal); I96 Gangrene, not elsewhere classified; E66.1 Drug-induced obesity; Z68.32 Body mass index [BMI] 32.0-32.9, adult | CPT/HCPCS: 11042; G0463 ==

== ENCOUNTER → 2021-01-08 | Outpatient (CLI) | payer MEDICARE | LOC: WOUNDCARE 12:51 | PROVIDERS: ATTEND Surgery | DX: I96 Gangrene, not elsewhere classified (principal); L92.8 Other granulomatous disorders of the skin and subcutaneous tissue; L98.492 Non-pressure chronic ulcer of skin of other sites with fat layer exposed; E66.01 Morbid (severe) obesity due to excess calories; Z68.32 Body mass index [BMI] 32.0-32.9, adult | CPT/HCPCS: 17250; G0463 ==

== ENCOUNTER → 2021-01-15 | Outpatient (CLI) | payer MEDICARE | LOC: WOUNDCARE 12:47 | PROVIDERS: ATTEND Surgery | DX: L92.8 Other granulomatous disorders of the skin and subcutaneous tissue (principal); L98.492 Non-pressure chronic ulcer of skin of other sites with fat layer exposed; I96 Gangrene, not elsewhere classified; E66.01 Morbid (severe) obesity due to excess calories; Z68.32 Body mass index [BMI] 32.0-32.9, adult | CPT/HCPCS: 99212 ==